=== PATIENT | male | born 1965 | race Caucasian/White ===

== ENCOUNTER → 2017-02-15 09:14 | Outpatient (CLI) | payer OTHER | END | disposition home or self-care (01) | LOC: D.MRI 02-11 10:00 | DX: M54.6 Pain in thoracic spine (principal) ==

== ENCOUNTER → 2017-05-03 21:12 | Outpatient (CLI) | payer OTHER | END | disposition home or self-care (01) | LOC: D.LABREF 21:12 | DX: C44.91 Basal cell carcinoma of skin, unspecified (principal) ==

== ENCOUNTER → 2017-05-13 08:12 | Outpatient (CLI) | payer OTHER | END | disposition home or self-care (01) | LOC: D.RAD 08:12 | DX: K21.0 Gastro-esophageal reflux disease with esophagitis (principal) ==

== ENCOUNTER 2017-05-16 15:22 | Inpatient (IN) | payer OTHER ==
[~2017-05-16] VITALS: Ht 185.4 cm; Wt 94.3 kg
[2017-05-16 16:16] LABS: BASOPHILS 0.2 % (0-2); EOSINOPHILS 2.8 % (0-7); HEMATOCRIT 33.2 % (42.0-54.0); HEMOGLOBIN 10.3 g/dL (13.5-17.5); IMMATURE GRANULOCYTES 0.2 % (0-5); LYMPHOCYTES 28.2 % (15-50); MCH 23.4 pg (26.0-34.0); MCV 75.3 fL (80.0-100.0); MEAN PLATELET VOLUME 9.6 fL (7.4-10.4); MONOCYTES 6.4 % (2-11); NEUTROPHILS 62.2 % (40-80); PLATELET COUNT 311 10x3/uL (130-400); RBC 4.41 10x6/uL (4.20-6.10); RDW 17.1 % (11.5-14.5); WBC 9.5 10x3/uL (4.8-10.8)
--- NOTE | 2017-05-16 16:18 | NUR ---
NO CONSENTS OBTAINED TO TO EMERGENT NATURE OF PROCEDURE.
[2017-05-16 16:35] LABS: ALBUMIN 2.9 g/dL (3.4-5.0); ANION GAP 14.2 mmol/L (8-16); BILIRUBIN - TOTAL 0.32 mg/dL (0.2-1.3); CARBON DIOXIDE 22.8 mmol/L (21.0-32.0); CREATININE - SERUM 1.3 mg/dL (0.6-1.3); PROTEIN - SERUM 6.8 g/dL (6.4-8.2)
--- NOTE | 2017-05-16 17:38 | NUR ---
PT ARRIVED INTO PACU RESTLESS. I EXPLAINED TO THE PT THAT HE HAD SOME BLEEDING WHEN GETTING AN EGD AT THE CLINIC AND THAT HE HAD TO BE BROUGHT TO THE HOSPITAL TO GET THE BLEEDING TO STOP. PT STARTED SIVERING EVEN MORE THATN WHEN HE ARRIVED. I ASKED THE PT IF HE WAS SCARED AND ANXIOUS. THE PT SHOCK HIS HEAD YES AND HAD TEARS COMING FROM HIS EYES. PT IS IN STABLE CONDITION AT THIS TIME. CALLED HIS BETITO TO COME INTO RECOVER TO HELP WITH PT ANXIETY. NO OTHER PT ARE IN HER AT THIS TIME. PT SEEMED TO RELAX ONCE HIS GOT TO HIS SIDE. WILL CONTINUE TO REMIND PT WHAT HAS OCCURED
--- NOTE | 2017-05-16 18:22 | NUR ---
PT APPEARS TO NOT BE ANXIOUS AT THIS TIME. PT EYES ARE CLOSED. HIS BRETHING HAS LOWERED FROM 24RR TO 16RR. WHEN ASKED IF HE FEELS LESS ANXIOUS, PT VOICED"YES". WILL CONITNUE TO MONITOR
--- NOTE | 2017-05-16 18:35 | NUR ---
PT ARRIVED TO UNIT ALERT AND ORIENTED RESPIRATIONS EVEN AND UNLABORED, FAMILY AWARE AND AT BEDSIDE, VSS, ART LINE IN PLACE TO RIGHT WRIST, NO NEEDS NOTED, WILL CONTINUE TO MONITOR
[2017-05-16 19:00] VITALS: BP 138/75
--- NOTE | 2017-05-16 19:00 | NUR ---
REPORT RECEIVED BY GABRIELLE. ADMISSION ASSESSMENT INITIATED. SISTER KATY GRACE, NIECE HOMA HODGE AND BETITO TOWNSEND AT BEDSIDE. ALERT AND ORIENTED TO PERSON, TIME, PLACE, AND SITUATION. PERRLA. MUCOUS MEMBRANES MOIST. S1S2 PRESENT. TELEMETRY MONITORING RATE OF 78. ART B/P 138/75. MAP 93. RR 16. PULSE OXIMETRY 97% VIA ROOM AIR. LUNGS SOUNDS CLEAR ALL LOBES. BS ACTIVE X4. LAST BOWEL MOVEMENT 05/16/17. PADRON CATHETER IN PLACE DRAINING YELLOW [place] URINE. RADIAL AND POPLITEAL PULSES PALP. CAPILLARY REFILL UPPER AND LOWER EXTREMITES. <3 SECS. FULL ROM UPPER AND LOWER EXTREMITES. R HAND PIV SALINE LOCK, PATENT, DRESSING DRY AND INTACT. ART LINE R WRIST. L WRIST PIV, INITIATED NS AT 125 MLS/HR PER ORDERS. SEE FLOW SHEET FOR COMPLETE ASSESSMENT. WILL CONTINUE TO MONITOR.
[2017-05-16 19:08] LABS: HEMATOCRIT 33.4 % (42.0-54.0); HEMOGLOBIN 10.3 g/dL (13.5-17.5)
[2017-05-16 20:00] VITALS: BP 129/75
[2017-05-16 20:05] VITALS: BP 139/66; BMI 27.5
--- NOTE | 2017-05-16 20:05 | NUR ---
DR. BASS AT BEDSIDE, STATED PT CAN HAVE ICE CHIPS ONLY, SWALLOW EVAL WILL BE DONE TOMORROW. BETITO AT BEDSIDE. VSS. CALL LIGHT WITHIN REACH. WILL CONTINUE TO MONITOR.
--- NOTE | 2017-05-16 20:40 | NUR ---
LAYING IN BED. C/O PAIN ON THROAT. ICE CHIPS PROVIDED PER REQUEST. CALLED PHARMACY FOR CHLORASEPTIC SPRAY. TEACHING PROVIDED ON PAIN AND AVAILABLE CHLORASEPTIC SPRAY PRN. DENIES FURTHER NEEDS AT THIS TIME. CALL LIGHT WITHIN REACH. WILL CONTINUE TO MONITOR.
[2017-05-16 21:00] VITALS: BP 163/85
[2017-05-16 22:00] VITALS: BP 142/76
--- NOTE | 2017-05-16 22:31 | NUR ---
CHLORASEPTIC SPRAY PROVIDED PER REQUEST. DENIES FURTHER NEEDS AT THIS TIME. VSS. CALL LIGHT WITHIN REACH. WILL CONTINUE TO MONITOR.
[2017-05-16 23:00] VITALS: BP 132/64
--- NOTE | 2017-05-16 23:00 | NUR ---
REASSESSMENT COMPLETE PER FLOW SHEET. SEE FLOW SHEET FOR DETAILS. VSS. DENIES NEEDS AT THIS TIME. BED IN LOWEST POSITION. WILL CONTINUE TO MONITOR.
[2017-05-17] VITALS (16 sets, daily range): BP systolic 121–143; BP diastolic 68–84; Ht 185.4 cm; Wt 94.3 kg
--- NOTE | 2017-05-17 01:00 | NUR ---
LAYING IN BED SLEEPING. VSS. CALL LIGHT WITHIN REACH. WILL CONTINUE TO MONITOR.
--- NOTE | 2017-05-17 02:25 | NUR ---
ATIVAN ADMINISTERED FOR ANXIETY. VSS. DENIES FURTHER NEEDS AT THIS TIME. CALL LIGHT WITHIN REACH. WILL CONTINUE TO MONITOR.
--- NOTE | 2017-05-17 03:00 | NUR ---
REASSSESSMENT COMPLETE PER FLOWSHEET. NO CHANGES NOTED. VSS. WILL CONTINUE TO MONITOR. CALL LIGHT WITHIN REACH. BED IN LOWEST POSITION.
[2017-05-17 04:16] LABS: BASOPHILS 0.2 % (0-2); EOSINOPHILS 1.4 % (0-7); HEMATOCRIT 32.9 % (42.0-54.0); HEMOGLOBIN 10.1 g/dL (13.5-17.5); IMMATURE GRANULOCYTES 0.3 % (0-5); LYMPHOCYTES 15.1 % (15-50); MCH 23.3 pg (26.0-34.0); MCHC 30.7 g/dL (31.0-37.0); MCV 75.8 fL (80.0-100.0); MEAN PLATELET VOLUME 9.7 fL (7.4-10.4); MONOCYTES 5.5 % (2-11); NEUTROPHILS 77.5 % (40-80); PLATELET COUNT 300 10x3/uL (130-400); RBC 4.34 10x6/uL (4.20-6.10); RDW 17.2 % (11.5-14.5)
[2017-05-17 04:20] LABS: WBC 13.2 10x3/uL (4.8-10.8)
[2017-05-17 04:28] LABS: ALBUMIN 2.9 g/dL (3.4-5.0); ALKALINE PHOSPHATASE 81 U/L (46-116); ALT (SGPT) 26 U/L (10-68); CALC OSMOLALITY 276 mosm/kg (275-300); CALCIUM 8.3 mg/dL (8.5-10.1); CARBON DIOXIDE 23.1 mmol/L (21.0-32.0); CHLORIDE - SERUM 105 mmol/L (98-107); GLUCOSE 95 mg/dL (74-106); MAGNESIUM - SERUM 1.9 mg/dL (1.8-2.4); PHOSPHOROUS 3.2 mg/dL (2.5-4.9); POTASSIUM - SERUM 3.9 mmol/L (3.5-5.1); PROTEIN - SERUM 6.8 g/dL (6.4-8.2); SODIUM 139 mmol/L (136-145); UREA NITROGEN 9 mg/dL (7-18); eGFR NON AFRICAN AMERICAN 84 mL/min (90-120)
--- NOTE | 2017-05-17 05:00 | NUR ---
LAYING IN BED SLEEPING. VSS. CALL LIGHT WITHIN REACH. BED IN LOWEST POSITION. WILL CONTINUE TO MONITOR.
--- NOTE | 2017-05-17 06:00 | NUR ---
BETITO AND NIECE IN ROOM. REPORT GIVEN ON STATUS OF PT THROUGHOUT THE NIGHT. VSS. DENIES FURTHER NEEDS AT THIS TIME. CALL LIGHT WITHIN REACH. BED IN LOWEST POSITION.
--- NOTE | 2017-05-17 07:00 | NUR ---
PT LYING IN BED WITH NO S/SX OF DISTRESS/DISCOMFORT NOTED. BREATHING NORMAL AND UNLABORED. FAMILY MEMBER AT BED SIDE. DURING ASSESSMENT, OCCASIONLLY COUGH WITH NO SPEUTUM OR BLOOD NOTED. C/O THROUGHT PAIN 2 OUT OF 10 ON 0-10. OFFERED MEDICATION AND PT REFUSED STATED IT WAS TOLERABLE. IV TO LEFT WRIST PATENT WITH NS INFUSING AT 125. RIGHT PIV PATENT AND SL. ART LINE TO RIGHT WRIST WITH SPINT IN PLACE. DRESSING C/D/I. RIGHT WRIST PINK, WARM AND CAP REFILL <3 SECS. ALL PULSES PALPABLE AND CAP REFILL <3 SEC. CALL LIGHT IN REACH. ICE CHIPS OFFERED. WILL CONT POC.
--- NOTE | 2017-05-17 07:50 | NUR ---
CALLED. ORDERED CXR FOR POST OP SURGERY.
--- NOTE | 2017-05-17 08:15 | NUR ---
POLITICAL THEORY PROFESSOR AT BED SIDE.
--- NOTE | 2017-05-17 08:30 | NUR ---
TECH TOOK PT VIA BED W/C TO DO SWALLOW EVAL.
--- NOTE | 2017-05-17 09:10 | NUR ---
PT BACK IN BED WITH 0 S/SX OF DISTRESS/DISCOMFORT NOTED. BREATHING NORMAL AND UNLABORED. OCCASIONALLY COUGH WITH NO BLOOD. DENIES PAIN AT THIS TIME. WILL CONT POC.
--- NOTE | 2017-05-17 10:53 | NUR ---
O2 SAT 87% DENIES SOB. BREATHING NORMAL AND UNLABORED. CLEAR LUNG SOUNDS. O2 AT 2L VIA NC. O2 SAT 93% WILL CONT POC.
--- NOTE | 2017-05-17 12:00 | NUR ---
FAMILY AT BED SIDE. STATED THAT HE WAS HUNGRY. PAGED ABOUT DIET ADVANCMENT. WAITING PHONE CALL. DENIES SOB. O2 SAT 98% REMAINS ON O2 AT 2L VIA NC. DENIES PAIN. NO ACUTE CHANGES FROM PREVIOUS ASSESSMENT. WILL CONT POC.
--- NOTE | 2017-05-17 12:09 | NUR ---
MD CHANDRA FOR PT TO HAVE CLEAR LIQUID DIET. DIETARY NOTFIED AND TRAY GIVEN TO PT.
[2017-05-17 12:54] LABS: HEMATOCRIT 36.9 % (42.0-54.0); HEMOGLOBIN 11.4 g/dL (13.5-17.5)
--- NOTE | 2017-05-17 13:11 | NUR ---
BED SIDE COMMODE BROUGHT TO PT. FAMILY AT BED SIDE. STATED "I WILL CALL YOU TO HELP ME WHENEVER SHE LEAVES"
--- NOTE | 2017-05-17 14:28 | NUR ---
O2 REMOVED AND STILL DENIES SOB. BREATHING NORMAL AND UNLABORED. LUNGS CLEAR TO ASCULTATION. O2 98% RA.
--- NOTE | 2017-05-17 14:45 | NUR ---
PT REQUESTED TO USE RESTROOM. UP X1 ASSISTANCE. DIARRHEA NOTED IN ROLDAN.
--- NOTE | 2017-05-17 16:24 | NUR ---
MD STANTON. GAVE OK TO REMOVE SANDRA AND FC. BOTH REMOVED. PRESSURE HELD AND DRESSING OVER RIGHT WRIST. NO BLEEDING NOTED. DRESSING C/D/I. NO VOIDING AT THIS TIME.
--- NOTE | 2017-05-17 16:30 | NUR ---
GAVE NEW ORDRES TO TRANSFER FROM ICU TO MED SURG. AWAITING OPEN ROOM.
--- NOTE | 2017-05-17 17:15 | NUR ---
REPORT CALLED INTO [facility] FROM MED SUR[facility]. ALL PERSONAL BELONING ACCOUNTED FOR. PT TRANSFERED TO MED SURG AND PT STATED HE HAD TO VOID. NORMAL VOID WITH YELLOW CLEAR URINE IN TOILET. NURSE TAKING OVER PT NOTIFIED.
--- NOTE | 2017-05-17 17:24 | NUR ---
PATIENT RECEIVED TO FLOOR FROM ICU VIA WHEELCHAIR. NO SIGNS OF DISTRESS NOTED. FAMILY PRESENT. ORIENTED TO ROOM .CALL LIGHT IN REACH.
[2017-05-17 17:29] LABS: HEMATOCRIT 34.5 % (42.0-54.0); HEMOGLOBIN 10.5 g/dL (13.5-17.5)
[2017-05-17 18:17] LABS: ALBUMIN 3.1 g/dL (3.4-5.0); ANION GAP 13.2 mmol/L (8-16); BILIRUBIN - TOTAL 0.35 mg/dL (0.2-1.3); CALCIUM 8.7 mg/dL (8.5-10.1); CARBON DIOXIDE 25.5 mmol/L (21.0-32.0); POTASSIUM - SERUM 3.7 mmol/L (3.5-5.1); PROTEIN - SERUM 7.5 g/dL (6.4-8.2)
[2017-05-17 18:20] LABS: CREATININE - SERUM 1.3 mg/dL (0.6-1.3)
[2017-05-18] VITALS: BP 113/63
[2017-05-18 04:00] VITALS: BP 111/57
[2017-05-18 04:55] LABS: BASOPHILS 0.2 % (0-2); EOSINOPHILS 2.4 % (0-7); HEMATOCRIT 33.1 % (42.0-54.0); IMMATURE GRANULOCYTES 0.3 % (0-5); LYMPHOCYTES 18.2 % (15-50); MCH 23.1 pg (26.0-34.0); MCHC 30.2 g/dL (31.0-37.0); MCV 76.4 fL (80.0-100.0); MEAN PLATELET VOLUME 9.6 fL (7.4-10.4); MONOCYTES 7.3 % (2-11); NEUTROPHILS 71.6 % (40-80); PLATELET COUNT 308 10x3/uL (130-400); RBC 4.33 10x6/uL (4.20-6.10); RDW 17.3 % (11.5-14.5); WBC 9.9 10x3/uL (4.8-10.8)
--- NOTE | 2017-05-18 06:13 | NUR ---
PATIENT RESTING IN BED AND DENIES NEEDS AT THIS TIME. BED IN LOWEST POSITION AND CALL LIGHT WITHIN REACH. ENCOURAGED THE PATIENT TO CALL IF HE HAS NEEDS.
[2017-05-18 08:05] VITALS: BP 115/75
--- NOTE | 2017-05-18 10:08 | NUR ---
PT AOX4 RESP EVEN AND NONLABORED PT DENIES NEEDS AT THIS TIME IV TO RIGHT HAND PATENT AND INTACT AT THIS TIME SRX2 BED AT LOWEST SETTING CALL LIGHT WITHIN REACH WILL CONTINUE TO MONITOR
[2017-05-18 12:12] VITALS: BP 112/75
[2017-05-18 16:07] VITALS: BP 109/70
[2017-05-18 20:00] VITALS: BP 112/50
[2017-05-19] VITALS: BP 129/73
--- NOTE | 2017-05-19 02:57 | NUR ---
ASSESSED, PT IS ASLEEP WITH EASY RESPIRATIONS AND NO DISTRESS NOTED. THE BED IS LOW, RAILS UP X'S 2 WITH THE CALL LIGHT AT HAND. FAMILY REMAINS AT THE BEDSIDE.
[2017-05-19 04:00] VITALS: BP 116/73
[2017-05-19 06:24] LABS: HEMATOCRIT 32.8 % (42.0-54.0); HEMOGLOBIN 9.9 g/dL (13.5-17.5)
[2017-05-19 08:39] VITALS: BP 132/70; BP 98/45
[2017-05-19] MEDS ORDERED: PROTONIX40 MG PO (14:59)
[2017-05-19] MEDS ORDERED: CARAFATE1 G/10 ML PO (14:59)
--- NOTE | 2017-05-19 15:37 | NUR ---
DISCONTINUED TWO IV WITH CATHETERS INTACT AT THIS TIME PT AMBULATED TO ENTRANCE WITH STAFF TO [facility] AT THIS TIME WITH DISCHARGE INSTRUCTIONS
== END 2017-05-19 15:38 | disposition home or self-care (01) | DRG 921 ==
LOC: D.ICU 15:22 → D.MS 05-17 17:24
PROVIDERS: Internal Medicine Gastroenterology; Internal Medicine Medical Oncology; Surgery; ADMIT Family Medicine
PROC: 0DB58ZX Excision of Esophagus, Via Natural or Artificial Opening Endoscopic, Diagnostic (ICD-10-PCS; 2017-05-16)
PROC: 3E0G8GC Introduction of Other Therapeutic Substance into Upper GI, Via Natural or Artificial Opening Endoscopic (ICD-10-PCS; 2017-05-16)
PROC: 5A1935Z Respiratory Ventilation, Less than 24 Consecutive Hours (ICD-10-PCS; 2017-05-16)
PROC: 0W3P8ZZ Control Bleeding in Gastrointestinal Tract, Via Natural or Artificial Opening Endoscopic (ICD-10-PCS; principal; 2017-05-16 15:00)
DX: K91.840 Postprocedural hemorrhage of a digestive system organ or structure following a digestive system procedure (principal); Y83.8 Other surgical procedures as the cause of abnormal reaction of the patient, or of later complication, without mention of misadventure at the time of the procedure; D50.9 Iron deficiency anemia, unspecified; K22.8 Other specified diseases of esophagus

== ENCOUNTER → 2017-05-21 09:42 | Outpatient (CLI) | payer OTHER ==
[2017-05-17 10:09] VITALS: BMI 27.4
[~2017-05-21 09:42] MED LIST: CARAFATE1 G/10 ML PO; PROTONIX40 MG PO
== END | disposition home or self-care (01) ==
LOC: D.LABREF 09:42
DX: C44.91 Basal cell carcinoma of skin, unspecified (principal)

== ENCOUNTER 2017-05-23 08:48 | Day surgery (SDC) | payer OTHER ==
[~2017-05-23] VITALS: Ht 185.4 cm; Wt 93.4 kg
[2017-05-23 10:41] VITALS: BP 117/77; Ht 185.4 cm; Wt 93.4 kg
[2017-05-23 10:58] LABS: BASOPHILS 0.5 % (0-2); EOSINOPHILS 3.5 % (0-7); HEMATOCRIT 35.6 % (42.0-54.0); HEMOGLOBIN 10.9 g/dL (13.5-17.5); IMMATURE GRANULOCYTES 0.2 % (0-5); LYMPHOCYTES 28.3 % (15-50); MCH 23.5 pg (26.0-34.0); MCHC 30.6 g/dL (31.0-37.0); MCV 76.7 fL (80.0-100.0); MEAN PLATELET VOLUME 9.9 fL (7.4-10.4); MONOCYTES 6.5 % (2-11); PLATELET COUNT 353 10x3/uL (130-400); RBC 4.64 10x6/uL (4.20-6.10); RDW 17.4 % (11.5-14.5); WBC 6.3 10x3/uL (4.8-10.8)
[2017-05-23 11:17] LABS: APTT 28.3 SECONDS (22.8-39.4); INR 0.92 (0.85-1.17); PROTIME 12.2 SECONDS (11.6-15.0)
--- NOTE | 2017-05-23 16:52 | NUR ---
1640 DISCHARGE INSTRUCTIONS GIVEN, INCLUDING POWER PORT INSTRUCTIONS AND NEEDLE. PRESCRIPTION FOR TYLENOL WITH CODEINE CALLED INTO PHARMACY DUE TO SWALLOWING DIFFICULTY. ESCORTED OUT.
== END 2017-05-23 16:40 | disposition home or self-care (01) ==
LOC: D.OPS 08:48 → D.PAN 11:00 → D.OPS 16:40
PROVIDERS: Anesthesiology
DX: C15.9 Malignant neoplasm of esophagus, unspecified (principal); Z01.812 Encounter for preprocedural laboratory examination

== ENCOUNTER → 2017-07-30 08:56 | Outpatient (CLI) | payer OTHER ==
[2017-05-23 10:41] VITALS: BMI 27.2
== END | disposition home or self-care (01) ==
LOC: D.CT 08:56
DX: C15.5 Malignant neoplasm of lower third of esophagus (principal); Z51.11 Encounter for antineoplastic chemotherapy; D50.9 Iron deficiency anemia, unspecified; D70.8 Other neutropenia

== ENCOUNTER 2017-08-19 07:23 | Inpatient (IN) | payer OTHER ==
[2017-08-16 14:19] LABS: BASOPHILS 0.2 % (0-2); EOSINOPHILS 5.1 % (0-7); HEMATOCRIT 42.1 % (42.0-54.0); HEMOGLOBIN 14.3 g/dL (13.5-17.5); IMMATURE GRANULOCYTES 0.3 % (0-5); MCH 32.5 pg (26.0-34.0); MCV 95.7 fL (80.0-100.0); MEAN PLATELET VOLUME 9.7 fL (7.4-10.4); MONOCYTES 13.3 % (2-11); NEUTROPHILS 66.1 % (40-80); PLATELET COUNT 163 10x3/uL (130-400); RDW 23.2 % (11.5-14.5); WBC 6.3 10x3/uL (4.8-10.8)
[2017-08-16 14:28] LABS: APTT 27.4 SECONDS (22.8-39.4); INR 0.89 (0.85-1.17); PROTIME 11.9 SECONDS (11.6-15.0)
[2017-08-16 14:31] LABS: ANION GAP 11.2 mmol/L (8-16); CARBON DIOXIDE 26.7 mmol/L (21.0-32.0); CREATININE - SERUM 1.2 mg/dL (0.6-1.3); POTASSIUM - SERUM 3.9 mmol/L (3.5-5.1)
[2017-08-19] VITALS (19 sets, daily range): BP systolic 108–141; BP diastolic 58–87; BMI 27.7; BMI 31.1
[~2017-08-19] VITALS: Ht 185.4 cm; Wt 70.5 kg
--- NOTE | ~2017-08-19 | HEMODYNAMI ---
PATIENT:ARTHUR TOWNSEND MEDICAL RECORD: [id number] : 67 LOCATION:[facility] D230 ADMISSION DATE: 08/19/17 Generatedon:10/25/201714:41 Patient name: ARTHUR TOWNSEND Patient #: [id number] SSN: : 1965 Date of study: 10/25/2017 Page: Of Hemodynamic Procedure Report Patient Data Patient Demographics Procedure consent was obtained First Name: ARTHUR Gender: Male Last Name: KRISTIAN : 1965 [facility] Initial: ARPAN Age: 52 year(s) Patient #: [id number] Race: Unknown Additional ID: [id number] Contact details Address: [address] [place] [address] State: [place] City: [facility] [place] Zip code: [address] Past Medical History Allergies Allergen Reaction Date Comments Reported Penicillins 10/25/2017 Admission Admission Data Admission Date: 08/19/2017 Admission Time: 7:23 Room #: D2305 Weight (lbs.): 160 Weight (kg.): 72.57 Procedure Procedure Types Cath Procedure Peripheral Cath Diagnostic Procedure Cath Peripheral Abscess Procedure Description Procedure Date Procedure Date: 10/25/2017 Procedure Start Time: 13:34 Procedure Staff Name Function Gilson Khan MD Performing Physician Gris Carson RT Monitor Quan Leyva RT Scrub Tammy Khalil RN Nurse Gris Carson RT Master Automotive Technician Procedure Data Cath Procedure Fluoroscopy Diagnostic fluoroscopy Total fluoroscopy Time: 18 time: 18 min min Diagnostic fluoroscopy Total fluoroscopy dose: 305 dose: 305 mGy mGy Contrast Material Contrast Material Type Amount (ml) Isovue 300 65 Procedure Medications Medication Administration Route Dosage Fentanyl I.V. 50 mcg Versed I.V. 1 mg Fentanyl I.V. 50 mcg Versed I.V. 1 mg Hemodynamics Rest Heart Rate: 152 (bpm) Snapshots Pre Cath Intra NCS Post Cath Vital Signs Time Heart Resp SPO2 etCO2 NIBP (mmHg) Rhythm Pain Sedation Rate (ipm) (%) (mmHg) Status Level (bpm) 13:13:48 131 36 98 0 98/65(83) NSR 0 (11) 10(A) , No pain 13:17:42 126 35 100 0 118/90(111) NSR 0 (11) 10(A) , No pain 13:21:43 122 35 98 0 111/81(89) NSR 0 (11) 10(A) , No pain 13:25:45 122 31 98 0 128/75(91) NSR 0 (11) 10(A) , No pain 13:29:55 121 31 99 0 119/66(83) NSR 0 (11) 10(A) , No pain 13:33:53 120 32 99 0 116/77(92) NSR 0 (11) 10(A) , No pain 13:37:56 110 32 97 0 127/79(108) NSR 0 () 10(A) , No pain 13:42:04 124 39 96 0 112/70(88) NSR 0 () 10(A) , No pain 13:47:03 120 31 96 0 Measuring NSR 0 () 10(A) , No pain 13:47:34 122 31 95 0 110/68(86) NSR 0 () 10(A) , No pain 13:51:38 124 32 97 0 117/71(95) NSR 0 () 10(A) , No pain 13:55:41 117 32 95 0 122/78(97) NSR 0 () 10(A) , No pain 14:00:32 120 27 94 0 111/68(98) NSR 0 () 10(A) , No pain 14:04:36 120 27 88 0 83/70(80) NSR 0 (11) 10(A) , No pain 14:08:38 123 31 98 0 64/50(55) NSR 0 (11) 10(A) , No pain 14:13:04 123 35 94 0 Out of range NSR 0 (11) 10(A) , No pain 14:16:00 125 36 90 0 133/65(100) NSR 0 (11) 10(A) , No pain 14:20:02 123 38 99 0 115/83(96) NSR 0 (11) 10(A) , No pain 14:24:55 127 17 100 0 98/62(77) NSR 0 (11) 10(A) , No pain 14:29:37 123 40 99 0 120/106(117) NSR 0 (11) 10(A) , No pain 14:34:18 123 36 98 0 139/65(82) NSR 0 (11) 10(A) , No pain 14:38:28 127 39 99 0 109/61(75) NSR 0 (11) 10(A) , No pain Medications Time Medication Route Dose Verified Delivered Reason Notes Effectivene ss by by 13:37:37 Fentanyl I.V. 50 Gilson Tammy for mcg Khan Remi RN sedation 13:37:50 Versed I.V. 1 mg Gilson Tammy for Khan Remi RN sedation 13:57:31 Fentanyl I.V. 50 Gilson Tammy for mcg Khan Remi RN sedation 13:57:37 Versed I.V. 1 mg Gilson Tammy for Khan Remi RN sedation Procedure Log Time Note 12:59:25 Patient Weight : 160 lbs 12:59:58 Time tracking: Regular hours 13:02:06 Plan of Care:Hemodynamics will remain stable., Cardiac rhythm will remain stable., Comfort level will be maintained., Respiratory function will remain adequate., Patient/ family verbilizes understanding of procedure., Procedure tolerated without complication., Recovers from procedure without complications.. 13:02:13 Patient received from ICU to IR Alert and oriented. Tansferred to table in Supine position. 13:02:15 Correct patient and procedure confirmed by team. 13:02:17 Signed procedure consent form obtained from guardian. 13:02:27 H&P Date Dictated: 10/25/2017 Within 30 days and on chart.. 13:02:32 Family unavailable. 13:02:38 Patient NPO since Breakfast. 13:02:53 Patient allergic to Penicillins 13:02:58 Is the patient allergic to Iodine/contrast media? No. 13:03:04 Is patient on blood thinner?No 13:05:08 Patient diabetic? No. 13:05:10 - 13:05:13 ----Pre-sedation anethsthesia assessment.---- 13:05:16 Previous problem with sedation/anesthesia? No ? 13:05:19 Snore? No 13:05:22 Sleep apnea? No 13:05:32 Deviated septum? No 13:05:34 Opens mouth fully? Yes 13:05:37 Sticks out tongue? Yes 13:05:41 Airway obstruction? No ? 13:05:44 Dentures? No ? 13:05:46 - 13:06:29 Right abdomen area was prepped with chlora-prep and draped in sterile fashion 13:06:31 Alarms reviewed 13:06:40 Sharps counted by scrub and verified 13:06:51 - 13:06:59 Use device set IR Diagnostic 13:07:00 Sterile Angiographic Pack opened to sterile field. 13:07:01 Bag Decanter (2002S) opened to sterile field. 13:12:37 ECG and BP/O2 sat monitors applied to patient. 13:12:41 Vital chart was started 13:12:42 Baseline sample Acquired. 13:12:44 Baseline sample Acquired. 13:12:44 Baseline sample Acquired. 13:12:46 Full Disclosure recording started 13:33:01 Physician arrived 13:34:18 --------ALL STOP TIME OUT------ 13:34:18 Final Timeout: patient, procedure, and site verified with staff and physician. All members of the team are in agreement. 13:34:28 Sedation plan: IV Moderate Sedation Medication:Versed, Fentanyl 13:34:35 Procedure started. 13:34:57 Local anesthetic to Abdominal area with Lidocaine 1% by Gilson Khan MD.INITIAL ACCESS ONLY 13:37:37 Fentanyl 50 mcg I.V. was administered by Tammy Khalil RN; for sedation ; 13:37:50 Versed 1 mg I.V. was administered by Tammy Khalil RN; for sedation; 13:43:[address] .035 145 glide wire opened to sterile field. 13:43:35 Cook Adolfo 1 7Fr Guide sheath opened to sterile field. 13:46:57 Terumo 5FR COBRA 65CM glide catheter opened to sterile field. 13:57:31 Fentanyl 50 mcg I.V. was administered by Tammy Khalil RN; for sedation ; 13:57:37 Versed 1 mg I.V. was administered by Tammy Khalil RN; for sedation; 14:04:01 Hatch Sci AMPLATZ Super stiff 180cm wire opened to sterile field. 14:06:42 Abscession 14Fr 45cm drainage catheter ([id number]) opened to sterile field. 14:06:43 Abscession 12Fr 45cm drainage catheter ([id number]) opened to sterile field. 14:09:44 Terumo 5FR STRAIGHT 65CM glide catheter opened to sterile field. 14:14:54 STOPCOCK 3-Way Large Bore ([id number]) opened to sterile field. 14:14:55 STOPCOCK 3-Way Large Bore ([id number]) opened to sterile field. 14:15:01 Hatch Sci AMPLATZ Super stiff 180cm wire opened to sterile field. 14:20:34 BAG, DRAINAGE EMPTY 600ML W/HARI ([id number]) opened to sterile field. 14:20:35 BAG, DRAINAGE EMPTY 600ML W/HARI (JEI284) opened to sterile field. 14:30:42 Procedure ended.(Physican Out) 14:30:57 Fluoroscopy time 18.00 minutes. 14:31:37 Fluoroscopy dose: 305 mGy 14:31:37 Flurop Dose total: 305 14:31:54 Contrast amount:Isovue 300 65ml. 14:36:39 Procedure type changed to Cath procedure, Peripheral Cath Diagnostic Procedure, Cath Peripheral, Abscess 14:37:28 Report given to ICU. 14:41:01 Vital chart was stopped Device Usage Item Name Manufacture Quantity Catalog Hospital Part Current Minima l Lot# / Number Charge Number Stock Stock Serial# Code Sterile Cardinal 1 [id number] [id number] 5 Angiographic Health Pack Bag Decanter Microtek 1 [id number] 58581 679595 5 () Medical Inc. Ep[employer] Medical 1 [id number] 269063 983357 5 [id number]ADRUNNER .035 145 glide wire Cook Adolfo 1 [employer] 1 D82644 999646 710369 5 7Fr Guide sheath Terumo 5FR Terumo 1 CG502 270610 707048 5 COBRA 65CM glide catheter Hatch Sci Hatch 1 [id number] 375916 981529 5 AMPLATZ Scientific Super stiff 180cm wire Abscession Angiodynamics 1 [id number] 090857 186858 278707 5 14Fr 45cm drainage catheter ([id number]) Abscession Angiodynamics 1 [id number] 970209 163070 218297 5 12Fr 45cm drainage catheter ([id number]) Terumo 5FR Terumo 1 CG505 978059 746777 5 STRAIGHT 65CM glide catheter STOPCO [employer] 2 B79355 163410 1644 778676 [id number] 3-Way Large [id number] Bore ([id number]) BAG, [facility] 2 JMV958 092454 504245 298233 5 DRAINAGE EMPTY 600ML W/HARI ([id number]) Signature Audit Kula Stage Time Signature Unsigned Intra-Procedure 10/25/2017 Gris Carson 2:40:58 PM RT(R) Signatures Monitor : Gris Carson RT Signature : Date : Time : [facility] [address] [place] [address]
--- NOTE | ~2017-08-19 | OP ---
PATIENT NAME: ARTHUR TOWNSEND MEDICAL RECORD: [id number] :67 LOCATION:.[facility] D.2305 ADMISSION DATE:08/19/17 SURGEON: BELIA LU MD DATE OF OPERATION: 09/07/2017 PREOPERATIVE DIAGNOSES: 1. Acute renal failure. 2. Esophageal cancer, status post esophagectomy. 3. 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 4. Sepsis. 5. Respiratory failure, on the ventilator. POSTOPERATIVE DIAGNOSES: 1. Acute renal failure. 2. Esophageal cancer, status post esophagectomy. 3. 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 4. Sepsis. 5. Respiratory failure, on the ventilator. PROCEDURE: Right IJ Trialysis catheter placement with ultrasound guidance. SURGEON: Belia Lu MD REPORT OF PROCEDURE: The patient's right neck was prepped and draped in sterile fashion. An ultrasound was used to visualize the right internal jugular vein. A 5 cc of 1% lidocaine was infused over the surrounding tissues. Using ultrasound guidance, a needle was used to cannulate the right internal jugular vein and a guidewire was advanced with ease. Over this wire, the dilator was placed followed by the Trialysis catheter. This catheter aspirated nonpulsatile dark blood and flushed easily in all 3 ports. This was sutured into place with 4-0 nylons and dressed appropriately. COMPLICATIONS: None. CONDITION: Fair. ANESTHESIA: Local. BLOOD LOSS: Minimal. Procedure done at the bedside. TRANSINT:[id number] Voice Confirmation ID: [id number] DOCUMENT ID: [id number] BELIA LU MD at 1114 CC: [id number] DICTATION DATE: 09/07/17 1311 BRIDGE OPERATOR: 09/07/17 1343 ADM IN [facility] [address] [place] [address]
--- NOTE | ~2017-08-19 | EC ---
PATIENT:ARTHUR TOWNSEND DATE OF SERVICE: 08/19/17 SEX: M MEDICAL RECORD: [id number] DATE OF : 67 LOCATION:[facility] D230 AGE OF PATIENT: 52 ADMISSION DATE: 08/19/17 REFERRING PHYSICIAN: INTERPRETING PHYSICIAN: GABBIE SY MD ECHOCARDIOGRAM REPORT ECHO CHARGES 4 ECHO COMPLETE CLINICAL DIAGNOSIS: TACHYCARDIA/RESP.FAILURE ECHOCARDIOGRAPHIC MEASUREMENTS (adult normal given) AC root (d.<3.7cm) 3.4 cm LV Septum d (<1.2 cm> 1.4 cm Valve Excursion 2.1 cm LV Septum (systole) 2.2 cm Left Atria (s.<4.0cm> 3.0 cm LVPW d(<1.2cm) 1.2 cm RV (d.<2.3cm) 2.2 cm LVPW (sytole) 1.7 cm LV diastole(<5.6CM) 5.2 cm MV E-F(>70mm/sec) cm LV systole 3.4 cm LVOT Diameter 1.9 cm MV exc.(>10mm) cm Est.ejection fraction (50-75%) % Pericardial Effusion N DOPPLER: LVIT cm/sec A 78.0 cm/sec E 68.0 cm/sec LA cm/sec RVSP 19.0 mmHg LVOT 111 cm/sec AOP1/2T m/s Asc. Ao 127 cm/sec RVOT 86.0 cm/sec RA cm/sec PA 114 cm/sec AV Gradient Peak 6.4 mmHg AV Mean 3.0 mmHg AV Area 2.5 cm MV Gradient Peak 2.9 mmHg MV Mean 1.3 mmHg MV Area cm COMMENTS: Biomedical Specialist: Milind ADAN Ethylbenzene Oxidizer: 4 Dr. Sy TAPE# PACS DATE OF SERVICE: 08/23/2017 PROCEDURE: Transthoracic echocardiogram. FINDINGS: 1. The left ventricle is difficult to visualize, but appears to be hyperkinetic with ejection fraction above 60%. Again, this is more qualitative in nature. The patient is significantly tachycardic, but appears to be in a sinus tachycardia. 2. The right ventricle appears to be normal size, normal function. There are ECHOCARDIOGRAM REPORT [id number] ARTHUR TOWNSEND no gross valvular abnormalities that could be seen on today's study, but again the left ventricle appears to be hyperkinetic with normal function to hyperdynamic function. There is no pericardial effusion. CONCLUSION: The patient's heart is difficult to visualize, but it appears there is a hypercontractile state. There is a sinus tachycardia with no gross valvular abnormalities or wall motion abnormality seen on today's study. TRANSINT:[id number] Voice Confirmation ID: [id number] DOCUMENT ID: [id number] 08/30/2017 Edited to correct date of service, dm. GABBIE SY MD at 0915 CC: [id number] DICTATION DATE: 08/26/17 0940 CUSTOMER SERVICE AND SALES CONSULTANT: 08/26/17 [address] [facility] [address] [place] [address]
--- NOTE | ~2017-08-19 | PRO ---
PATIENT:ARTHUR TOWNSEND MEDICAL RECORD: [id number] : 67 LOCATION:D[facility] D.2301 ADMISSION DATE: 08/19/17 PROCEDURE PERFORMED BY: BARTOLO PIKE MD DATE OF PROCEDURE: 08/25/2017 PROCEDURE: Fiberoptic bronchoscopy. INDICATION: Fiberoptic bronchoscopy was carried out to inspect the airway if there is any mucous plugging. The chest radiograph shows bilateral infiltrate, left more than the right. Some atelectasis in the left lower lobe. DESCRIPTION OF PROCEDURE: Fiberoptic bronchoscope was easily passed through the ET tube. The steven was sharp. There was thick yellowish secretion bilaterally, more on the left main bronchus. There was severe bronchitic change, it bled easily by touching the bronchoscope. No endobronchial lesion was seen. The right main bronchus was normal. The subsegment to the right lower lobe, right upper lobe, right middle within normal range. No endobronchial lesion was seen. There was thick yellowish secretion on the right side. Overall, the patient tolerated the procedure very well. Specimen washing was obtained and sent for routine culture and sensitivity, AFB and fungus and cytology. TRANSINT:[id number] Voice Confirmation ID: [id number] DOCUMENT ID: [id number] BARTOLO PIKE MD at 1035 CC: [id number] DICTATION DATE: 08/25/17 1220 BARREL LEVELER: 08/25/17 1407 ADM IN [facility] [address] [place] [address]
--- NOTE | ~2017-08-19 | HEMODYNAMI ---
PATIENT:ARTHUR TOWNSEND MEDICAL RECORD: [id number] : 67 LOCATION:[facility] D.2305 ADMISSION DATE: 08/19/17 Generatedon:09/20/20179:40 Patient name: ARTHUR TOWNSEND Patient #: [id number] SSN: : 1965 Date of study: 09/20/2017 Page: Of Hemodynamic Procedure Report Patient Data Patient Demographics Procedure consent was obtained First Name: ARTHUR Gender: Male Last Name: KRISTIAN : 1965 [facility] Initial: ARPAN Age: 52 year(s) Patient #: [id number] Race: Unknown Additional ID: [id number] Contact details Address: [address] [place] [address] State: [place] City: [facility] Zip code: [address] Admission Admission Data Admission Date: 08/19/2017 Admission Time: 7:23 Room #: D.2305 Weight (lbs.): 236 Weight (kg.): 107.05 Procedure Procedure Types Cath Procedure Peripheral Cath Diagnostic Procedure Cath Peripheral Gastric G J Tube Replacement Procedure Description Procedure Date Procedure Date: 09/20/2017 Procedure Start Time: 8:55 Procedure Staff Name Function Favian Farr MD Performing Physician Gris Carson RT Monitor Quan Leyva RT Scrub Tammy Khalil RN Nurse Gris Carson RT Instructor Product Inspection Procedure Data Cath Procedure Fluoroscopy Diagnostic fluoroscopy Total fluoroscopy Time: time: 11.2 min 11.2 min Diagnostic fluoroscopy Total fluoroscopy dose: 399 dose: 399 mGy mGy Contrast Material Contrast Material Type Amount (ml) Isovue 300 75 Diagnostic catheters Device Type Used For End Catheter Placement Merit Impress KA 2 5Fr 40CM catheter Hemodynamics Rest Heart Rate: 129 (bpm) Snapshots Pre Cath Intra NCS Post Cath Vital Signs Time Heart Resp SPO2 etCO2 NIBP (mmHg) Rhythm Pain Sedation Rate (ipm) (%) (mmHg) Status Level (bpm) 8:34:55 128 7 0 147/88(104) NSR 0 (11) 10(A) , No pain 8:39:04 127 17 0 130/78(104) NSR 0 (11) 10(A) , No pain 8:43:16 125 17 0 125/80(109) NSR 0 (11) 10(A) , No pain 8:47:31 129 19 0 132/79(98) NSR 0 (11) 10(A) , No pain 8:51:47 126 10 0 140/80(109) NSR 0 (11) 10(A) , No pain 8:56:02 124 10 100 0 127/79(105) NSR 0 (11) 10(A) , No pain 9:00:16 129 19 100 0 136/82(109) NSR 0 (11) 10(A) , No pain 9:04:28 131 21 100 0 139/81(97) NSR 0 (11) 10(A) , No pain 9:08:40 131 3 100 0 133/80(109) NSR 0 (11) 10(A) , No pain 9:12:52 125 13 100 0 122/79(106) NSR 0 (11) 10(A) , No pain 9:17:08 124 17 0 124/70(95) NSR 0 (11) 10(A) , No pain 9:22:07 127 6 0 Measuring NSR 0 (11) 10(A) , No pain 9:22:11 126 6 0 136/79(108) NSR 0 (11) 10(A) , No pain 9:26:32 129 34 0 137/78(97) NSR 0 (11) 10(A) , No pain 9:30:37 125 10 0 119/76(94) NSR 0 (11) 10(A) , No pain 9:34:45 128 16 0 123/81(95) NSR 0 (11) 10(A) , No pain 9:39:03 130 10 100 0 125/72(102) NSR 0 (11) 10(A) , No pain Procedure Log Time Note 8:08:10 Patient Weight : 236 lbs 8:08:44 Use device set IR Diagnostic 8:08:47 Sterile Angiographic Pack opened to sterile field. 8:08:48 Bag Decanter opened to sterile field. 8:22:57 Time tracking: Regular hours 8:23:23 Plan of Care:Hemodynamics will remain stable., Cardiac rhythm will remain stable., Comfort level will be maintained., Respiratory function will remain adequate., Patient/ family verbilizes understanding of procedure., Procedure tolerated without complication., Recovers from procedure without complications.. 8:23:55 Patient received from ICU to IR Alert and oriented. Tansferred to table in Supine position. 8:24:00 Signed procedure consent form obtained from guardian. 8:24:09 H&P Date Dictated: 09/20/2017 Within 30 days and on chart.. 8:24:12 8:24:18 Patient NPO since Midnight. 8:33:51 ECG and BP/O2 sat monitors applied to patient. 8:33:52 Vital chart was started 8:33:54 Baseline sample Acquired. 8:33:56 Full Disclosure recording started 8:33:57 8:34:42 Left abdomen area was prepped with chlora-prep and draped in sterile fashion 8:34:44 Alarms reviewed 8:34:45 Sharps counted by scrub and verified 8:34:47 8:50:59 Physician arrived 8:51:57 --------ALL STOP TIME OUT------ 8:51:57 Final Timeout: patient, procedure, and site verified with staff and physician. All members of the team are in agreement. 8:53:07 Sedation plan: Local Anesthetic Medication:Lidocaine 8:54:43 Procedure started. 8:55:07 Local anesthetic to Abdominal area with Lidocaine 1% by Favian Farr MD.INITIAL ACCESS ONLY 8:59:30 Terumo ANGLE 180L glide wire opened to sterile field. 8:59:39 Terumo TORQUE DEVICE PLASTIC .038 opened to sterile field. 9:00:32 Terumo Super Stiff Angled 260cm glide wire opened to sterile field. 9:04:52 Terumo 5FR ANGLED 65CM glide catheter opened to sterile field. 9:06:52 A Merit [place] Bells KA 2 5Fr 40CM catheter was advanced over the wire and used for . 9:08:55 Cordis 5Fr BRITE TIP 11cm sheath opened to sterile field. 9:10:00 Micropuncture VSI 4FR kit opened to sterile field. 9:29:37 LISSA JEJUNAL FEEDING TUBE 20FR. opened to sterile field. 9:36:28 a 20 fr jejunal feeding tube placed 9:36:35 Procedure ended.(Physican Out) 9:36:41 Fluoroscopy time 11.20 minutes. 9:36:46 Fluoroscopy dose: 399 mGy 9:36:46 Flurop Dose total: 399 9:36:51 Contrast amount:Isovue 300 75ml. 9:36:53 Sharps counted by scrub and verified by R.N. 9:39:27 Procedure and supply charges have been captured, reviewed, submitted and are correct. 9:39:45 Report given to ICU. 9:39:50 End room use (Document Last) 9:40:09 Vital chart was stopped Device Usage Item Name Manufacture Quantity Catalog Hospital Part Current Mini mal Lot# / Number Charge Number Stock Stock Serial# Code Sterile Cardinal 1 [id number] 5 Angiographic Health Pack Bag Decanter Microtek 1 [id number] 89076 151728 5 [employer]. Terumo ANGLE Terumo 1 [id number] [id number] 505083 [id number] 5 180L glide wire Terumo TORQUE [place] 1 TD01 937797 983131 312457 5 DEVICE Scientific PLASTIC .038 Terumo Super Terumo 1 [id number] 794879 587996 5 Stiff Angled 260cm glide wire Terumo 5FR Terumo 1 [id number] 876767 092667 5 ANGLED 65CM glide catheter Merit Impress Merit Medical 1 [id number] 178186 5 KA 2 5Fr 40CM catheter Cordis 5Fr Cardinal 1 [id number] 974418 628298 5 BRITE TIP Health 11cm sheath Micropuncture VSI VASCULAR 1 [id number] 492110 469694 5 VSI 4FR kit SOLUTIONS LISSA JEJUNAL RONEL-ALLYSON 1 0200-14 816843 5 FEEDING TUBE 14FR. Signature Audit Ward Stage Time Signature Unsigned Intra-Procedure 09/20/2017 Gris Carson 9:40:07 AM RT(R) Signatures Monitor : Gris Carson RT Signature : Date : Time : [address] [address] [place] [address]
--- NOTE | ~2017-08-19 | OP ---
PATIENT NAME: ARTHUR TOWNSEND MEDICAL RECORD: [id number] :67 LOCATION:[facility] D.2301 ADMISSION DATE:08/19/17 SURGEON: JEREMIAH BRAGA MD DATE OF OPERATION: 08/19/2017 SURGEON: Jeremiah Braga MD. PREOPERATIVE DIAGNOSIS: Esophageal cancer. POSTOPERATIVE DIAGNOSIS: Esophageal cancer. PROCEDURE PERFORMED: 1. Laparoscopic converted to open transhiatal esophagectomy. 2. Pyloroplasty. 3. Laparoscopic jejunal feeding tube placement. 4. Right subclavian central venous line. ANESTHESIA: General. COMPLICATIONS: None. SPECIMENS: Partial gastrectomy, partial esophagus. Case was clean contaminated. ESTIMATED BLOOD LOSS: 600 cc. OPERATIVE COURSE: After consent was obtained, the patient was taken to the operating room and placed in the supine position on the operating table. Next, general anesthesia was given via endotracheal intubation after a timeout was taken to confirm the correct patient and procedure. The abdomen and left neck were both prepped and draped in typical sterile fashion. An A-line was placed. A Wyman was placed. A timeout was taken to confirm the correct patient and procedure. A stab incision was made just above the umbilicus. Using a 10-mm bladeless optical trocar, the abdomen was entered under direct laparoscopic vision. Adequate pneumoperitoneum was achieved. The patient was placed in steep reverse Trendelenburg position. At this time, all remaining instruments were placed. Bharathi liver retractor was placed in the subxiphoid position, 12 mm and 5-mm trocar in the right lateral quadrants, two 5-mm trocars in the left lateral quadrant. The left lobe of the liver was exposed, was elevated exposing GE junction. The greater curve of the stomach was mobilized using the Harmonic scalpel, staying approximately 4 cm from the greater curve as not to injure the gastroepiploic vessel. The mesentery was divided along the spleen up to the left crura. Next, the gastrohepatic ligament was opened using Harmonic scalpel. Dissection continued to the right crura. Dissection continued anterior and posteriorly completing a full circumferential dissection of the GE junction at the hiatus. Next, the celiac trunk was meticulously dissected. The left gastric artery was identified. It was taken with 2 clips proximal and 2 clips distal and transected. Next, extensive laparoscopic mediastinal dissection was performed with the Harmonic scalpel and blunt dissection. Next, the laparoscopic jejunal feeding tube was placed, the greater omentum was retracted cephalad, transverse mesocolon was identified. It was followed the ligament of Treitz and approximately 15 cm ligament of Treitz. Two pursestring and 2-0 silk sutures were placed and then secured. An enterotomy was made. The sutures were secured to the anterior abdominal wall and skin incision was made. OPERATIVE REPORT [id number] ARTHUR TOWNSEND The 18-Dutch jejunal feeding tube was passed into the anterior abdominal wall into the enterotomy. The balloon was inflated. It was secured to the skin with nylon suture. Next, a laparoscopic pyloroplasty was performed. The pylorus was incised. At this time, there was significant bleeding encountered at the gastroduodenal vessel that cannot be controlled laparoscopically. An incision was made in the upper midline. The vessels were isolated and identified. All bleeding was tied off using 2-0 and 3-0 silk suture. Once the balloon was under control, the pyloroplasty was finished with the hand sewn in a standard Heineke-Mikulicz pyloroplasty fashion using 2-0 Stratafix suture. The remaining portion of the hiatus has been dissected by hand. Next, the sternocleidomastoid muscle was identified. A linear incision was made using a 15 blade scalpel, dissection continued. The muscles were retracted laterally. The carotid sheath was identified. Dissection continued, the esophagus was mobilized. Blunt finger dissection was done to anterior and posterior of the esophagus until it met the mediastinal dissection. At this time, once we had full mobilization through the mediastinum, the stomach was transected approximately 5 cm in the GE junction using a linear cutting stapler. A Tionesta drain was tied to both suture lines from the gastric specimen. The gastric specimen esophagus were delivered through the neck incision and the Tionesta drain was removed. The esophagus was transected using a linear cutting stapler. The Ariel drain was passed back and forth to the mediastinal in several occasions to make sure we had an adequate tract. The Ariel drain was sutured to the tubular stomach. The stomach was delivered into the neck incision. Enterotomies were made and again, a esophagogastrostomy was created with the linear cutting stapler and NG tube has passed under direct vision. The common enterotomy was closed with a 3-0 Stratafix suture. A FARA drain was placed. The neck incision was then irrigated and suctioned. It was closed in 3 layers. The muscle layer was closed with 3-0 Vicryl sutures, subcutaneous tissue closed with 3-0 Vicryl suture. The skin was closed with 4-0 Monocryl. At this time, the abdomen was copiously irrigated and suctioned. A FARA drain was placed along the pyloroplasty and the liver bed. The Bharathi liver retractor was removed. The Harrison retractor was removed. The fascia was reapproximated using #1 looped PDS. Skin was closed with sandra. At the end of the case, all needle and instrument counts were correct. No complications occurred. Prior to patient being transferred to the ICU, a right subclavian central venous line was placed. A post-procedure chest x-ray was performed that showed adequate placement line, no pneumothorax, no pleural effusions. The patient was transferred to the ICU in critical condition, intubated. At the end of the case, all needle and instrument counts were correct. TRANSINT:[id number] Voice Confirmation ID: [id number] DOCUMENT ID: [id number] JEREMIAH BRAGA MD at 0759 CC: [id number] DICTATION DATE: 08/19/171924 SAP TECHNICAL ARCHITECT: 08/20/17 0009 ADM IN [facility] [address] [place] [address]
--- NOTE | ~2017-08-19 | EC ---
PATIENT:ARTHUR TOWNSEND DATE OF SERVICE: 08/19/17 SEX: M MEDICAL RECORD: [id number] DATE OF : 67 [facility]ATION[facility] AGE OF PATIENT: 52 ADMISSION DATE: 08/19/17 REFERRING PHYSICIAN: INTERPRETING PHYSICIAN: GABBIE JARVIS MD ECHOCARDIOGRAM REPORT ECHO CHARGES 4 ECHO COMPLETE CLINICAL DIAGNOSIS: RESP FAILURE,TACHYCARDIA ASSESS FOR PERICARDIAL EFFUSION ECHOCARDIOGRAPHIC MEASUREMENTS (adult normal given) AC root (d.<3.7cm) 4.0 cm LV Septum d (<1.2 cm> 1.6 cm Valve Excursion 1.9 cm LV Septum (systole) 1.7 cm Left Atria (s.<4.0cm> 3.8 cm LVPW d(<1.2cm) 1.5 cm RV (d.<2.3cm) 3.4 cm LVPW (sytole) 2.0 cm LV diastole(<5.6CM) 5.8 cm MV E-F(>70mm/sec) cm LV systole 3.8 cm LVOT Diameter 2.5 cm MV exc.(>10mm) 1.5 cm Est.ejection fraction (50-75%) % Pericardial Effusion N DOPPLER: LVIT cm/sec A 85.0 cm/sec E 95.0 cm/sec LA cm/sec RVSP 25 mmHg LVOT 117 cm/sec AOP1/2T m/s Asc. Ao 160 cm/sec RVOT 118 cm/sec RA cm/sec PA 127 cm/sec AV Gradient Peak 10.28mmHg AV Mean 5.29 mmHg AV Area 3.9 cm MV Gradient Peak 4.67 mmHg MV Mean 1.88 mmHg MV Area cm COMMENTS: Nurse Aide Evaluator: Madhuri MATA Desk Reporter: 4 Dr. Jarvis TAPE# PACS DATE OF SERVICE: 10/29/2017 PROCEDURE: Transthoracic echocardiogram. FINDINGS: 1. Left ventricle is hyperdynamic. Ejection fraction 65%. Endocardium was difficult to visualize, but there are no obvious regional wall motion abnormalities. 2. Left atrium is normal. ECHOCARDIOGRAM REPORT [id number] ARTHUR TOWNSEND 3. Aortic valve is normal. 4. Mitral valve is normal. 5. Tricuspid valve is normal. 6. There is no pericardial effusion. 7. Right ventricle is mildly dilated. 8. The right atrium is normal in size and normal in function. 9. The IVC is normal. 10. The pulmonic valve is not well visualized, but structurally and functionally appears to be normal. CONCLUSION: The patient has mild hyperdynamic LV function, normal structurally otherwise. TRANSINT:[id number] Voice Confirmation ID: [id number] DOCUMENT ID: [id number] GABBIE JARVIS MD at 1118 CC: [id number] DICTATION DATE: 10/29/17 1533 JOURNEYMAN GLAZIER: 10/29/17 1617 DIS IN 10/31/17 [facility] [address] [place] [address]
--- NOTE | ~2017-08-19 | OP ---
PATIENT NAME: ARTHUR TOWNSEND MEDICAL RECORD: [id number] :67 LOCATION:[facility] D.2305 ADMISSION DATE:08/19/17 SURGEON: JEREMIAH BRAGA MD DATE OF OPERATION: 10/10/2017 SURGEON: Jeremiah Braga MD PREOPERATIVE DIAGNOSES: 1. Bacteremia. 2. Esophageal cancer. 3. End-stage renal disease. POSTOPERATIVE DIAGNOSES: 1. Bacteremia. 2. Esophageal cancer. 3. End-stage renal disease. PROCEDURES PERFORMED: 1. Removal of left chest wall tunneled PowerPort. 2. Removal of right tunneled internal jugular HemoSplit catheter. 3. Insertion of right subclavian HemoSplit dialysis catheter with fluoroscopy. ANESTHESIA: General. COMPLICATIONS: None. SPECIMENS: None. Case was contaminated. OPERATIVE COURSE: After consent was obtained, the patient was taken to the operating room and placed in the supine position on the operating table. Next, general anesthesia was given via endotracheal intubation. After a timeout was performed to hat confirm the correct patient and procedure. The bilateral chest marcos were prepped and draped in typical sterile fashion. A right side of the chest was kept under sterile drapes and the local anesthetic was injected above the PowerPort. The previous incision was opened using a 15 blade scalpel. Dissection continued to the level of the port. The port was grasped with a Wiliam device. The Prolene sutures were cut using Metzenbaum scissors. The port and the catheter were removed. The wound was then irrigated. Hemostasis was obtained with electrocautery. The wound was packed with peroxide-soaked gauze dressings. The left side of the chest was covered up. The sterile towels on the right-side of the chest were removed. HemoSplit catheter was tunneled, the sutures were removed. The dissection was carried along the catheter tip to the cuff. Once the cuff was dissected, the HemoSplit catheter was removed. At this time, the right subclavian vein was cannulated on the first pass. Under fluoroscopy, a guidewire was advanced to the atriocaval junction. The needle was removed. The skin incision was made with a needle stick site to allow for the dilators. The tract was then dilated over the wire in a standard Seldinger fashion. Next, a separate skin incision was made after administration of local anesthetic. Incision was made with a 15 blade scalpel. The tunneler was passed from the skin incision site to the needle stick site. Under fluoroscopy, the dilator and breakaway sheath were advanced over the wire at the atriocaval junction. The dilator and wire were then removed. The catheter was then placed through the breakaway sheath and advanced to the atriocaval junction under OPERATIVE REPORT [id number] ARTHUR TOWNSEND fluoroscopy. The breakaway sheath was removed. The needle stick site was closed with 3-0 Vicryl suture. The catheter was secured to the skin using 3-0 nylon suture. Both ports were aspirated and flushed. Sterile dressing was applied to the HemoSplit. At the end of the case, all needle and instrument counts were correct. No complications occurred. The patient was extubated and transferred to the PACU in stable condition. TRANSINT:[id number] Voice Confirmation ID: [id number] DOCUMENT ID: [id number] JEREMIAH BRAGA MD at 0922 CC: [id number] DICTATION DATE: 10/10/17 185 OPTOMETRIC AIDE: 10/10/17 2305 ADM IN [facility] [address] [place] [address]
--- NOTE | ~2017-08-19 | OP ---
PATIENT NAME: ARTHUR TOWNSEND MEDICAL RECORD: [id number] :67 LOCATION:[facility] D.2301 ADMISSION DATE:08/19/17 SURGEON: JEREMIAH BRAGA MD DATE OF OPERATION: 09/04/2017 SURGEON: Jeremiah Braga MD PREOPERATIVE DIAGNOSES: 1. Free air. 2. Sepsis. 3. Esophageal cancer. 4. History of esophagectomy. POSTOPERATIVE DIAGNOSES: 1. Free air. 2. Sepsis. 3. Esophageal cancer. 4. History of esophagectomy. 5. infarcted gastric conduit. ANESTHESIA: General. ESTIMATED BLOOD LOSS: 500 cc. Case was grossly contaminated. OPERATIVE COURSE: After consent was obtained, the patient was taken to the operating room and placed in the supine position on the operating table and timeout was taken to confirm the correct patient and procedure. The abdomen was prepped and draped in typical sterile fashion. Previous sandra were removed. The midline abdominal incision was opened. The skin incision was opened using a 15 blade scalpel. The previous suture was identified, it was cut. The sutures were removed and the abdomen was opened. A Bookwalter was placed to retract the abdomen. Meticulous dissection was then performed in the epigastric region. The distal stomach was grossly necrotic. The pyloromyotomy anastomosis was dehisced. The stomach was followed in its path to the diaphragmatic hiatus. The stomach from the pylorus to the mediastinum was noted to have full thickness necrosis. At this time, the first portion of duodenum was divided, it was closed in 2 layers using 3-0 Vicryl suture. The conduit was mobilized through its course into the abdomen. It was mobilized bluntly through its course into the mediastinum. At this time, the neck was prepped and draped in the typical sterile fashion. The neck incision had been previously opened for drainage. After prep and drape, dissection was done and Weitlaner were placed. The proximal esophagus was identified and was circumferentially dissected. A Ariel dressing was placed. The esophagogastrostomy anastomosis was delivered through the incision. The anastomosis was taken down. At this time, a spit fistula was created into the left anterior chest wall. The fistula was created using 3-0 Vicryl suture. The neck wound was copiously irrigated and suctioned. A FARA drain was placed into the mediastinum at the neck incision. The neck incision was copiously irrigated and suctioned. It was loosely reapproximated. FARA drain was placed to bulb suction. At this time, ostomy appliance was applied. At this time, we returned to the abdomen. The remaining portion of the gastric conduit was bluntly dissected in the mediastinum and delivered through the diaphragm and then the stomach. The specimen was passed off the field. There was full thickness necrosis from proximal margin to distal margin. The upper abdomen and mediastinum were irrigated with approximately 4 liters of warm normal saline. A FARA drain was placed into the mediastinum. A second FARA OPERATIVE REPORT [id number] KRISTIANARTHUR ARPAN drain was placed at the duodenal stump, delivered to the right anterior abdominal wall. During mobilization, an accessory splenic vein was ligated. The vein was identified. Clips were placed on proximal and distal margins. The splenic bed was packed with Nu-Knit. Several additional clips were placed on the accessory splenic vein. Adequate hemostasis was maintained. The abdomen was then again irrigated with additional 2 liters of warm normal saline. At this time, the Bookwalter retractor was removed. The small bowel was run to the ligament of Treitz to terminal ileum and there was no evidence of bowel injury and no evidence of bleeding. All 4 quadrants were irrigated and suctioned. The abdomen was then closed with #1 looped PDS. A wound VAC was placed on the incision. At the end of the case, all needle and instrument counts were correct. The patient was transferred to the ICU in critical condition. TRANSINT:[id number] Voice Confirmation ID: [id number] DOCUMENT ID: [id number] JEREMIAH BRAGA MD at 1637 CC: [id number] DICTATION DATE: 09/04/17 1449 LASER SYSTEMS ENGINEER: 09/04/17 1629 ADM IN [facility] [address] [place] [address]
--- NOTE | ~2017-08-19 | OP ---
PATIENT NAME: ARTHUR TOWNSEND MEDICAL RECORD: [id number] :67 LOCATION:[facility] D.2301 ADMISSION DATE:08/19/17 SURGEON: NUNU BASS MD DATE OF OPERATION: 08/19/2017 ASSISTANCE NOTE I assisted Dr. Deisy Dey with the esophagectomy. I scrubbed in as the case was underway. The laparotomy had already been performed. Dr. Dey was dissecting up into the mediastinum. My involvement in the operation included assistance with delivery of the esophagus and the stomach up through the neck incision. Manipulation of tissues. Irrigation and suctioning. Some hemorrhage control with metallic clips as well as with sutures. Retraction and assistance with creation of the anastomosis in the neck. Assistance with delivery of the distal stomach up into the neck. Closure of the neck incision in 3 layers. Assistance with closure of the midline fascia of the abdomen. Placement of metallic clips for closure of the abdominal incision. TRANSINT:[id number] Voice Confirmation ID: [id number] DOCUMENT ID: [id number] NUNU BASS MD at 1017 CC: [id number] DICTATION DATE: 08/20/17 0935 VACCINES SOLUTIONS SPECIALIST: 08/20/17 1013 ADM IN [facility] [address] [place] [address]
--- NOTE | ~2017-08-19 | OP ---
PATIENT NAME: ARTHUR TOWNSEND MEDICAL RECORD: [id number] :67 [facility] D.2301 ADMISSION DATE:08/19/17 SURGEON: JEREMIAH BRAGA MD DATE OF OPERATION: 09/03/2017 SURGEON: Jeremiah Braga MD PREOPERATIVE DIAGNOSES: 1. Pleural effusion. 2. Anastomotic leak. 3. Free air. POSTOPERATIVE DIAGNOSES: 1. Pleural effusion. 2. Anastomotic leak. 3. Free air. PROCEDURE PERFORMED: 1. Right chest tube thoracostomy. 2. EGD. 3. Neck wound exploration. ANESTHESIA: General. COMPLICATIONS: None. SPECIMENS: None. ESTIMATED BLOOD LOSS: Minimal. OPERATIVE COURSE: After consent was obtained, the right chest wall was prepped and draped in typical sterile fashion. Local anesthetic was administered. Small stab incision was made in the anterior axillary line at the level of the nipple. Dissection continued until the level of the rib and 5th rib was identified. The pleural cavity was entered using a blunt Lauren. A 28-Bhutanese chest tube was placed towards the apex of the lung. There was immediate return of several 100 cc of serosanguineous pleural fluid. Chest tube was placed to suction and it was secured using 0 silk suture. Sterile gauze dressing and tape was applied. Next, an EGD was performed to evaluate the gastric conduit. The proximal anastomosis appeared intact. The stomach was pale and bhatti. No focal necrosis, no obvious area of perforation. The scope was ____ level of the pyloromyotomy. The air appeared to be leakage of the suture line. At this time, the scope was withdrawn and the procedure was terminated. The left neck was prepped and draped in typical sterile fashion. The sutures of the incision were opened using 11-blade scalpel. The area was gently dissected and then packed with sterile gauze dressings. At the end of procedure, all needle and instrument counts were correct. No complications occurred. TRANSINT:[id number] Voice Confirmation ID: [id number] DOCUMENT ID: [id number] OPERATIVE REPORT [id number] KRISTIANARTHURJEREMIAH RAI MD at 1440 CC: [id number] DICTATION DATE: 09/04/17 1056 SEWAGE SCREEN OPERATOR: 09/04/17 1205 ADM IN [address] [place] [address]
--- NOTE | ~2017-08-19 | OP ---
PATIENT NAME: ARTHUR TOWNSEND MEDICAL RECORD: [id number] :67 LOCATION:[facility] D.2305 ADMISSION DATE:08/19/17 SURGEON: MAURILIO BASS MD DATE OF OPERATION: 09/14/2017 PREOPERATIVE DIAGNOSIS: Dislodged jejunostomy tube. POSTOPERATIVE DIAGNOSIS: Dislodged jejunostomy tube. PROCEDURE: Replacement of a 16-Tuvaluan jejunostomy tube. SURGEON: Maurilio Bass MD HOUSING OFFICER: None. BLOOD LOSS: Minimal. ANESTHESIA: None. COMPLICATIONS: None. DESCRIPTION OF PROCEDURE: The patient is having some spit out through the spit fistula. Unfortunately, he is also having some spit coming out through the left neck incision. His J-tube popped out this morning. A stomal appliance was applied over the UPJ tube enterocutaneous opening. I have removed the stomal appliance. I obtained a well-lubricated 16-Tuvaluan J-tube. I checked the balloon, which was patent. I then inserted the well-lubricated balloon down through the enterocutaneous stoma. I inflated the balloon with 15 cc of water. I then pushed down the flange. A followup dye study revealed that the J-tube was well placed within the jejunum. TRANSINT:[id number] Voice Confirmation ID: [id number] DOCUMENT ID: [id number] MAURILIO BASS MD at 0940 CC: [id number] DICTATION DATE: 09/14/17 155 DATASTAGE ARCHITECT: 09/14/17 1756 ADM IN [facility] [address] [id number]
--- NOTE | ~2017-08-19 | OP ---
PATIENT NAME: ARTHUR TOWNSEND MEDICAL RECORD: [id number] :67 LOCATION:[facility] D.2305 ADMISSION DATE:08/19/17 SURGEON: JEREMIAH BRAGA MD DATE OF OPERATION: 09/21/2017 DATE OF PROCEDURE: 09/21/2017 SURGEON: Jeremiah Braga MD PREOPERATIVE DIAGNOSES: 1. End-stage renal disease, on hemodialysis. 2. History of esophagectomy with esophageal fistula. POSTOPERATIVE DIAGNOSES: 1. End-stage renal disease, on hemodialysis. 2. History of esophagectomy with esophageal fistula. PROCEDURE PERFORMED: 1. Removal of left internal jugular Trialysis catheter. 2. Placement of left internal jugular HemoSplit hemodialysis catheter. 3. Left neck wound exploration and wound VAC placement. ANESTHESIA: General. COMPLICATIONS: None. SPECIMENS: None. First half, the case was clean. Second half, the case was contaminated. ESTIMATED BLOOD LOSS: 20 cc. OPERATIVE COURSE: After consent was obtained, the patient was taken to the operating room and placed in supine position on the operating table. The right neck was prepped and draped in typical sterile fashion. A Glidewire was placed through the right internal jugular Trialysis catheter. The Trialysis catheter was removed. The tract was dilated. Local anesthetic was injected below the right clavicle, skin incision was made. The catheter was then tunneled from the skin incision site to the needle stick site. Under fluoroscopy, the dilator and breakaway sheath were advanced over the wire to the atriocaval junction. The wire and dilator were removed. The catheter was placed through the breakaway sheath and advanced into the atriocaval junction. The breakaway sheath was then removed. The catheter was accessed. Both ports were aspirated and the catheter was flushed with 5000 units of heparin with 30 cc of injectable saline. A bowel patch was placed. The catheter was secured to the skin and covered with sterile dressing. Needlestick site was closed with 3-0 Vicryl suture. At this time, the left neck was prepped and draped in typical sterile fashion. The left neck wound incision was opened, there was a small perforation in the cervical esophagus prior to the exit site from the skin. The opening was oversewn with 3-0 Vicryl suture and a VAC was placed into the left neck incision and closed. At the end of the case, all needle and sponge counts were correct. No complications occurred. The patient was returned to the ICU in stable condition. TRANSINT:[id number] Voice Confirmation ID: [id number] DOCUMENT ID: [id number] OPERATIVE REPORT [id number] ARTHUR TOWNSEND JAMES J MD at 1835 CC: [id number] DICTATION DATE: 09/21/17 1334 ASSOCIATE PROFESSOR OF CHEMISTRY: 09/21/17 1557 ADM IN [address] [place] [address]
--- NOTE | ~2017-08-19 | HEMODYNAMI ---
PATIENT:ARTHUR TOWNSEND MEDICAL RECORD: [id number] : 67 LOCATION:[facility] D.2305 ADMISSION DATE: 08/19/17 Generatedon:10/15/201712:02 Patient name: ARTHUR TOWNSEND Patient #: [id number] SSN: : 1965 Date of study: 10/15/2017 Page: Of Hemodynamic Procedure Report Patient Data Patient Demographics Procedure consent was obtained First Name: ARTHUR Gender: Male Last Name: KRISTIAN : 1965 [facility] Initial: ARPAN Age: 52 year(s) Patient #: [id number] Race: Unknown Additional ID: [id number] Contact details Address: [address] [place] [address] State: [place] City: [facility] Zip code: [address] Admission Admission Data Admission Date: 08/19/2017 Admission Time: 7:23 Room #: D.2305 Weight (lbs.): 236 Weight (kg.): 107.05 Procedure Procedure Types Cath Procedure Peripheral Cath Diagnostic Procedure Cath Peripheral Miscellaneous Chest Tube Placement Procedure Description Procedure Date Procedure Date: 10/15/2017 Procedure Start Time: 11:39 Procedure Staff Name Function Brock Arredondo MD Performing Physician Quan Leyva RT Monitor Quan Leyva RT Scrub Tammy Khalil RN Nurse Gris Carson RT Pelota Maker Procedure Data Cath Procedure Fluoroscopy Diagnostic fluoroscopy Total fluoroscopy Time: 0.7 time: 0.7 min min Diagnostic fluoroscopy Total fluoroscopy dose: 14 dose: 14 mGy mGy Procedure Medications Medication Administration Route Dosage Fentanyl I.V. 50 mcg Versed I.V. 1 mg Fentanyl I.V. 50 mcg Versed I.V. 1 mg Hemodynamics Rest Heart Rate: 116 (bpm) Snapshots Pre Cath Intra NCS Post Cath Vital Signs Time Heart Resp SPO2 NIBP Rhythm Pain Sedation Rate (ipm) (%) (mmHg) Status Level (bpm) 11:33:54 118 26 100 116/58(80) NSR 0 (11) 10(A) , No pain 11:38:05 115 16 98 120/60(84) NSR 0 (11) 10(A) , No pain 11:42:22 116 16 100 123/60(99) NSR 0 (11) 10(A) , No pain 11:46:31 117 21 100 112/60(83) NSR 0 (11) 10(A) , No pain 11:50:41 116 19 100 82/58(80) NSR 0 (11) 10(A) , No pain 11:55:40 114 25 Measuring NSR 0 (11) 10(A) , No pain 11:56:42 116 11 100 Out of NSR 0 (11) 10(A) range , No pain 12:01:16 103/49(68) NSR 0 (11) 10(A) , No pain Medications Time Medication Route Dose Verified Delivered Reason Notes Effectivene ss by by 11:42:29 Fentanyl I.V. 50 Brock Tammy for mcg Arnulfo Khalil RN sedation 11:42:39 Versed I.V. 1 mg Brock Tammy for Arnulfo Khalil RN sedation 11:55:15 Fentanyl I.V. 50 Brock Tammy for mcg Arnulfo Khalil RN sedation 11:55:22 Versed I.V. 1 mg Brock Tammy for Arnulfo Khalil RN sedation Procedure Log Time Note 10:47:21 Patient Weight : 236 lbs 11:11:32 Quan Leyva RT (R) (CV) sent for patient. Start room use. 11:11:42 Time tracking: Regular hours 11:11:47 Plan of Care:Hemodynamics will remain stable., Cardiac rhythm will remain stable., Comfort level will be maintained., Respiratory function will remain adequate., Patient/ family verbilizes understanding of procedure., Procedure tolerated without complication., Recovers from procedure without complications.. 11:11:54 Patient received from ICU to IR Alert and oriented. Tansferred to table in Supine position. 11:11:57 Correct patient and procedure confirmed by team. 11:11:58 Signed procedure consent form obtained from patient. 11:11:59 ECG and BP/O2 sat monitors applied to patient. 11:12:00 Full Disclosure recording started 11:12:01 - 11:12:06 H&P Date Dictated: 10/15/2017 Within 30 days and on chart.. 11:12:08 Pre-procedure instructions explained to patient. 11:12:08 Pre-op teaching completed and patient verbalized understanding. 11:12:10 Family in waiting room. 11:12:12 Patient NPO since Midnight. 11:12:26 Is patient on blood thinner?Yes 11:12:32 Use device set IR Diagnostic 11:12:34 Bag Decanter (2002S) opened to sterile field. 11:12:35 Sterile Angiographic Pack opened to sterile field. 11:19:14 pt unable to verbalize due to trach collar unable to answer questions 11:21:54 Sharps counted by scrub and verified by R.N. 11:21:58 Alarms reviewed by R. N. 11:22:04 Right chest area was prepped with chlora-prep and draped in sterile fashion 11:32:44 Vital chart was started 11:32:45 Baseline sample Acquired. 11:32:50 - 11:37:04 Physician arrived 11:37:29 --------ALL STOP TIME OUT------ 11:37:29 Final Timeout: patient, procedure, and site verified with staff and physician. All members of the team are in agreement. 11:37:44 Sedation plan: IV Moderate Sedation Medication:Versed, Fentanyl 11:38:58 Procedure started. 11:39:10 Local anesthetic to Thoracic area with Lidocaine 1% by Brock Arredondo MD.INITIAL ACCESS ONLY 11:40:11 Abscession 14FR drainage catheter ([id number]) opened to sterile field. 11:40:12 Cook WILLY .035 15CM guide wire opened to sterile field. 11:40:13 STOPCOCK 3-Way Large Bore ([id number]) opened to sterile field. 11:42:29 Fentanyl 50 mcg I.V. was administered by Tammy Khalil RN; for sedation ; 11:42:39 Versed 1 mg I.V. was administered by Tammy Khalil RN; for sedation; 11:46:11 chest tube replaced with a 14fr all purpose drain 11:50:20 Procedure ended.(Physican Out) 11:50:35 Fluoroscopy time 00.70 minutes. 11:50:49 Fluoroscopy dose: 14 mGy 11:50:49 Flurop Dose total: 14 11:51:01 Sharps counted by scrub and verified 11:52:56 Procedure and supply charges have been captured, reviewed, submitted an d are correct. 11:55:15 Fentanyl 50 mcg I.V. was administered by Tammy Khalil RN; for sedation ; 11:55:22 Versed 1 mg I.V. was administered by Tammy Khalil RN; for sedation; 12:01:26 Insertion/operative site no bleeding no hematoma. 12:01:33 Post-op/insertion site Right Chest area dressed using a 4 x 4 and Tegaderm. 12:01:45 Post procedure instruction explained to patient.Patient verbalizes understanding. 12:02:05 Report given to ICU. 12:02:08 Patient transfered to ICU with Bed. 12:02:32 Vital chart was stopped Device Usage Item Name Manufacture Quantity Catalog Hospital Part Current Minima l Lot# / Number Charge Number Stock Stock Serial# Code Bag Decanter Microtek 1 [id number] 19459 [id number] 5 () [employer] Sterile Cardinal [address] 347262 [id number] 5 Angiographic [facility] Angiodynamics 1 [id number] 800200 277529 [id number] 5 14FR drainage catheter ([id number]) Cook [facility] [employer]o Medical 1 [id number] 138352 473136 5 [id number] .035 15CM guide [facility] [employer] Medical 1 [id number] 1994 [id number] 5 [id number] 3-Way Large Bore ([id number]) Signature Audit Dunn [place] Stage Time Signature Unsigned Intra-Procedure 10/15/2017 Quan 12:02:29 PM Shuffield RT (R) (CV) Signatures Monitor : Quan Signature : Shuffield RT Date : Time : [address] [place] [address]
--- NOTE | ~2017-08-19 | OP ---
PATIENT NAME: ARTHUR TOWNSEND MEDICAL RECORD: [id number] :67 LOCATION:.[facility] D.2305 ADMISSION DATE:08/19/17 SURGEON: JEREMIAH BRAGA MD DATE OF OPERATION: 10/01/2017 SURGEON: Jeremiah Braga MD PREOPERATIVE DIAGNOSES: 1. Jaundice. 2. Duodenal stump leak. 3. Esophageal cancer. 4. Sacral decubitus ulcer. POSTOPERATIVE DIAGNOSES: 1. Jaundice. 2. Duodenal stump leak. 3. Esophageal cancer. 4. Sacral decubitus ulcer. PROCEDURE PERFORMED: 1. Exploratory laparotomy. 2. Abdominal washout. 3. Cholecystectomy. 4. Duodenal stump revision. 5. Excision of sacral decubitus, 8 cm x 6 cm x 1 cm. ANESTHESIA: General. COMPLICATIONS: None. SPECIMENS: Gallbladder. Case was grossly contaminated. ESTIMATED BLOOD LOSS: 400 cc. OPERATIVE COURSE: After consent was obtained, the patient was taken from the ICU, intubated to the operating room. The abdomen was prepped and draped in typical sterile fashion. Timeout was taken to confirm the correct patient and procedure. An Ioban dressing was placed. The patient's previous midline incision was opened, previous Prolene sutures and PDS sutures were removed. The fascia was identified. Meticulous dissection was performed to free the adhesions from the anterior abdominal wall. Copious amounts of intraabdominal ascites were encountered and suctioned. A Bookwalter retractor was placed. The liver was retracted cephalad. The gallbladder was identified. The gallbladder was dissected using combination of electrocautery and blunt dissection. The cystic artery and cystic duct were identified. Two clips were placed in the proximal cystic duct, 1 clip distal and [address] in the cystic artery. Cystic duct and cystic artery were transected. The remaining portion of the gallbladder was then dissected off the liver bed, removed and sent for permanent pathology. The cystic duct stump was then grasped and a 2-0 silk suture was placed to reinforce the sandra. The liver bed was packed off with Nu-Knit. The hepatic flexure was mobilized on the third portion of the duodenum. The dissection then continued back to the level of the previous duodenal stump closure. At the duodenal stump, there was marked inflammation. The area was OPERATIVE REPORT [id number] ARTHUR TOWNSEND meticulously dissected until the duodenal stump opening was identified. At this time, a Malecot drain was placed into the duodenal stump. Two rows of pursestring sutures were placed around the duodenal stump enclosing the Malecot mushroom tipped catheter. The catheter was then exteriorized through a right upper quadrant incision. The abdomen was then irrigated with 2-3 liters of warmed normal saline. The J-tube was adjusted to an antegrade position. A FARA drain was placed into the left upper quadrant. At this time, careful attention was paid to hemostasis. Tereza was applied to the liver bed. All packs were removed. The Bookwalter retractor was removed. The midline fascia was closed with #1 looped PDS. Wound VAC was placed over the incision, which was greater than 50 squared-cm. The duodenal drain was placed to gravity drainage. The FARA drain was placed to suction. The patient was then placed in the left lateral decubitus position. Escharotomy was performed and the sacral decubitus ulcer was 8 cm x 6 cm x 1 cm. It was debrided until healthy tissue was encountered. Damp saline gauze was then placed over the wound with ABD dressings. At the end of the case, all needle and instrument counts were correct. No complications occurred. The patient was taken to the ICU in stable condition. TRANSINT:[id number] Voice Confirmation ID: [id number] DOCUMENT ID: [id number] JEREMIAH BRAGA MD at 0800 CC: [id number] DICTATION DATE: 10/01/171726 LIABILITY CLAIMS MANAGER: 10/01/17 1853 ADM IN [id number] [place] [address]
--- NOTE | ~2017-08-19 | CN ---
PATIENT NAME:ARTHUR TOWNSEND MEDICAL RECORD: [id number] : 67 LOCATION:[facility].2301 ADMIT DATE: 08/19/17 ACCOUNT: [id number] CONSULTING PHYSICIAN: BARTOLO PIKE MD REFERRING PHYSICIAN: JEREMIAH BRAGA MD DATE OF CONSULTATION: 08/20/2017 CONSULT REQUESTING PHYSICIAN: Jeremiah Braga MD (JJ) REASON FOR CONSULTATION: Vent management. HISTORY OF PRESENT ILLNESS: Mr. Townsend is a 52-year-old gentleman who underwent esophagectomy last night. Now that patient is orally intubated, the history is taken by reviewing the patient's note and talking to the nursing staff. The patient was recently diagnosed with esophageal mass consistent with carcinoma and he was seen by Dr. Duke as well as by Dr. Marquez. Also, the patient has a history of asthma, which is pretty stable. REVIEW OF SYSTEMS: As in history of present illness. PAST MEDICAL HISTORY: 1. Asthma. 2. History of hemoptysis. 3. Gastroesophageal reflux disease. ALLERGIES: HE IS ALLERGIC TO PENICILLIN. PAST SURGICAL HISTORY: He is now status post esophagectomy. MEDICATIONS: UBmatrix was reviewed. PERSONAL AND SOCIAL HISTORY: The patient is an ex-smoker. He is a nondrinker. FAMILY HISTORY: Significant for cardiovascular disease and diabetes. PHYSICAL EXAMINATION: GENERAL: Now, the patient is orally intubated. He is awake and alert. VITAL SIGNS: The blood pressure 110/66, pulse is 128, respirations 20, temperature is 98.2, and SpO2 96%. He is on 40% oxygen, CPAP with pressure support of 10. HEENT: Conjunctivae are pink. Sclerae nonicteric. NECK: Supple, no JVD. CHEST: There is no wheeze, no rales. HEART: Rhythm regular, normal sound, no murmur. ABDOMEN: Soft. There is a PEG tube in place and incision. RECTAL: Deferred. EXTREMITIES: No cyanosis, no clubbing, no pedal edema. SKIN: Warm, normal turgor. CENTRAL NERVOUS SYSTEM: The patient is awake. He follows commands. LABORATORY DATA: CBC: WBC 10,000, hemoglobin 11.7, hematocrit 34.6, platelet count 89. Chemistry: Sodium 143, potassium is 3.8, BUN is 11, creatinine 1.3. ABG: The pH is 7.23, pCO2 60.1, the pO2 is 87. IMAGING: Chest radiograph, there is volume loss in the left lower lobe, CONSULT REPORT [id number] ARTHUR TOWNSEND possible atelectasis, possible pneumonia. IMPRESSION: 1. Acute hypoxic respiratory failure post-procedure. 2. Respiratory acidosis secondary to hypercapnia, most likely post-surgery and narcotics medication. 3. Status post esophagectomy. 4. History of CA of the esophagus. 5. History of asthma. 6. Gastroesophageal reflux disease. 7. Atelectasis, left lower lobe. RECOMMENDATION: 1. We will continue the mechanical ventilation. Repeat the ABG when the patient's pH is normal and the patient is more awake and alert, we will try to extubate the patient. 2. Continue albuterol/ipratropium nebulizer. I will add Brovana, budesonide nebulizer. 3. Frequent suction. Dr. Braga, thank you for involving me in the care of Mr. Townsend. The critical care time is 45 minutes. TRANSINT:[id number] Voice Confirmation ID: [id number] DOCUMENT ID: [id number] BARTOLO PIKE MD at 1035 CC: JEREMIAH BRAGA MD [id number] DICTATION DATE: 08/20/17 1021 CLUB WAITER/WAITRESS: 08/20/17 1045 ADM IN [facility] [address] [place] [address]
[2017-08-19 16:07] LABS: BASOPHILS 0.1 % (0-2); EOSINOPHILS 1.1 % (0-7); HEMATOCRIT 36.7 % (42.0-54.0); HEMOGLOBIN 12.2 g/dL (13.5-17.5); IMMATURE GRANULOCYTES 0.6 % (0-5); LYMPHOCYTES 8.6 % (15-50); MCH 31.9 pg (26.0-34.0); MCHC 33.2 g/dL (31.0-37.0); MCV 95.8 fL (80.0-100.0); MEAN PLATELET VOLUME 9.6 fL (7.4-10.4); NEUTROPHILS 83.6 % (40-80); PLATELET COUNT 165 10x3/uL (130-400); RBC 3.83 10x6/uL (4.20-6.10); RDW 22.8 % (11.5-14.5)
[2017-08-19 17:09] LABS: WBC 21.3 10x3/uL (4.8-10.8)
[2017-08-19 17:11] LABS: HEMATOCRIT 26.6 % (42.0-54.0); HEMOGLOBIN 8.8 g/dL (13.5-17.5); MCH 31.5 pg (26.0-34.0); MCHC 33.1 g/dL (31.0-37.0); MCV 95.3 fL (80.0-100.0); MEAN PLATELET VOLUME 8.8 fL (7.4-10.4); PLATELET COUNT 129 10x3/uL (130-400); RBC 2.79 10x6/uL (4.20-6.10); RDW 22.4 % (11.5-14.5)
[2017-08-19 17:35] LABS: LYMPHOCYTES 10 % (15-50); NEUTROPHILS 66 % (40-80)
[2017-08-19 17:36] LABS: PLATELET ESTIMATE NORMAL
[2017-08-20] VITALS (59 sets, daily range): BP systolic 75–122; BP diastolic 54–87; BMI 30.2
[2017-08-20 00:14] LABS: ALBUMIN 2.3 g/dL (3.4-5.0); ANION GAP 14.7 mmol/L (8-16); BILIRUBIN - TOTAL 1.64 mg/dL (0.2-1.3); CALCIUM 8.3 mg/dL (8.5-10.1); CARBON DIOXIDE 25.4 mmol/L (21.0-32.0); CREATININE - SERUM 1.4 mg/dL (0.6-1.3); POTASSIUM - SERUM 4.1 mmol/L (3.5-5.1); PROTEIN - SERUM 5.4 g/dL (6.4-8.2)
[2017-08-20 00:23] LABS: BASOPHILS 0.1 % (0-2); EOSINOPHILS 0 % (0-7); IMMATURE GRANULOCYTES 0.4 % (0-5); LYMPHOCYTES 4.1 % (15-50); MCH 30.6 pg (26.0-34.0); MCHC 33.9 g/dL (31.0-37.0); MEAN PLATELET VOLUME 10.2 fL (7.4-10.4); MONOCYTES 7.7 % (2-11); NEUTROPHILS 87.7 % (40-80); PLATELET COUNT 105 10x3/uL (130-400); RDW 20.8 % (11.5-14.5)
[2017-08-20 00:27] LABS: HEMATOCRIT 38.9 % (42.0-54.0); HEMOGLOBIN 13.2 g/dL (13.5-17.5); RBC 4.32 10x6/uL (4.20-6.10); WBC 10.7 10x3/uL (4.8-10.8)
[2017-08-20 05:38] LABS: BASOPHILS 0 % (0-2); EOSINOPHILS 0 % (0-7); HEMATOCRIT 34.6 % (42.0-54.0); HEMOGLOBIN 11.7 g/dL (13.5-17.5); IMMATURE GRANULOCYTES 0.3 % (0-5); LYMPHOCYTES 6.1 % (15-50); MCH 30.3 pg (26.0-34.0); MCHC 33.8 g/dL (31.0-37.0); MCV 89.6 fL (80.0-100.0); MEAN PLATELET VOLUME 9.4 fL (7.4-10.4); MONOCYTES 9.2 % (2-11); NEUTROPHILS 84.4 % (40-80); PLATELET COUNT 89 10x3/uL (130-400); RBC 3.86 10x6/uL (4.20-6.10); RDW 21.5 % (11.5-14.5)
[2017-08-20 05:39] LABS: ANION GAP 11.8 mmol/L (8-16); CREATININE - SERUM 1.3 mg/dL (0.6-1.3); MAGNESIUM - SERUM 1.3 mg/dL (1.8-2.4); POTASSIUM - SERUM 3.8 mmol/L (3.5-5.1)
[2017-08-20 05:47] LABS: APTT 29.4 SECONDS (22.8-39.4); INR 1.04 (0.85-1.17); PROTIME 13.5 SECONDS (11.6-15.0)
[2017-08-20 06:29] LABS: PLATELET ESTIMATE DECREASED
[2017-08-21] VITALS (95 sets, daily range): BP systolic 80–130; BP diastolic 42–96
[2017-08-21 03:56] LABS: BASOPHILS 0.1 % (0-2); EOSINOPHILS 0.3 % (0-7); HEMATOCRIT 30.9 % (42.0-54.0); HEMOGLOBIN 10.4 g/dL (13.5-17.5); IMMATURE GRANULOCYTES 0.4 % (0-5); LYMPHOCYTES 5.4 % (15-50); MCH 30.8 pg (26.0-34.0); MCHC 33.7 g/dL (31.0-37.0); MCV 91.4 fL (80.0-100.0); MONOCYTES 6.5 % (2-11); NEUTROPHILS 87.3 % (40-80); PLATELET COUNT 106 10x3/uL (130-400); RBC 3.38 10x6/uL (4.20-6.10); RDW 22.3 % (11.5-14.5)
[2017-08-21 04:14] LABS: ANION GAP 10.7 mmol/L (8-16); CALCIUM 7.8 mg/dL (8.5-10.1); CARBON DIOXIDE 26.9 mmol/L (21.0-32.0); CREATININE - SERUM 1.4 mg/dL (0.6-1.3); MAGNESIUM - SERUM 1.2 mg/dL (1.8-2.4); POTASSIUM - SERUM 3.6 mmol/L (3.5-5.1)
[2017-08-22] VITALS (84 sets, daily range): BP systolic 83–113; BP diastolic 37–68
[2017-08-22 04:33] LABS: BASOPHILS 0.1 % (0-2); EOSINOPHILS 0.9 % (0-7); HEMATOCRIT 31.3 % (42.0-54.0); HEMOGLOBIN 10.7 g/dL (13.5-17.5); IMMATURE GRANULOCYTES 0.6 % (0-5); LYMPHOCYTES 3.6 % (15-50); MCH 31.8 pg (26.0-34.0); MCHC 34.2 g/dL (31.0-37.0); MCV 92.9 fL (80.0-100.0); MEAN PLATELET VOLUME 9.7 fL (7.4-10.4); MONOCYTES 4.5 % (2-11); NEUTROPHILS 90.3 % (40-80); PLATELET COUNT 104 10x3/uL (130-400); RBC 3.37 10x6/uL (4.20-6.10); RDW 21.1 % (11.5-14.5); WBC 17.5 10x3/uL (4.8-10.8)
[2017-08-22 04:51] LABS: ANION GAP 10.3 mmol/L (8-16); CALCIUM 7.8 mg/dL (8.5-10.1); CARBON DIOXIDE 25.3 mmol/L (21.0-32.0); CREATININE - SERUM 1.6 mg/dL (0.6-1.3); MAGNESIUM - SERUM 1.8 mg/dL (1.8-2.4); POTASSIUM - SERUM 3.6 mmol/L (3.5-5.1)
[2017-08-22 12:48] LABS: BASOPHILS 0.1 % (0-2); EOSINOPHILS 1.4 % (0-7); HEMATOCRIT 32.7 % (42.0-54.0); HEMOGLOBIN 10.9 g/dL (13.5-17.5); IMMATURE GRANULOCYTES 0.5 % (0-5); LYMPHOCYTES 3.7 % (15-50); MCH 30.8 pg (26.0-34.0); MCHC 33.3 g/dL (31.0-37.0); MCV 92.4 fL (80.0-100.0); MEAN PLATELET VOLUME 9.5 fL (7.4-10.4); MONOCYTES 4.1 % (2-11); NEUTROPHILS 90.2 % (40-80); PLATELET COUNT 102 10x3/uL (130-400); RBC 3.54 10x6/uL (4.20-6.10); RDW 21.1 % (11.5-14.5); WBC 19.2 10x3/uL (4.8-10.8)
[2017-08-23] VITALS (67 sets, daily range): BP systolic 94–121; BP diastolic 54–76
[2017-08-23 04:24] LABS: BASOPHILS 0.1 % (0-2); HEMATOCRIT 31.8 % (42.0-54.0); HEMOGLOBIN 10.5 g/dL (13.5-17.5); IMMATURE GRANULOCYTES 0.8 % (0-5); LYMPHOCYTES 2.8 % (15-50); MCH 31.3 pg (26.0-34.0); MEAN PLATELET VOLUME 9.9 fL (7.4-10.4); MONOCYTES 5.2 % (2-11); NEUTROPHILS 89.1 % (40-80); PLATELET COUNT 119 10x3/uL (130-400); RBC 3.36 10x6/uL (4.20-6.10); RDW 21.2 % (11.5-14.5); WBC 17.8 10x3/uL (4.8-10.8)
[2017-08-23 04:27] LABS: MCV 94.6 fL (80.0-100.0)
[2017-08-23 04:41] LABS: ALBUMIN 1.3 g/dL (3.4-5.0); ANION GAP 9.5 mmol/L (8-16); BILIRUBIN - TOTAL 1.62 mg/dL (0.2-1.3); CALCIUM 7.9 mg/dL (8.5-10.1); CARBON DIOXIDE 27.7 mmol/L (21.0-32.0); CREATININE - SERUM 1.8 mg/dL (0.6-1.3)
[2017-08-23 04:43] LABS: POTASSIUM - SERUM 4.2 mmol/L (3.5-5.1)
[2017-08-24] VITALS (56 sets, daily range): BP systolic 104–175; BP diastolic 56–99
[2017-08-24 03:51] LABS: BASOPHILS 0.1 % (0-2); EOSINOPHILS 3.1 % (0-7); HEMATOCRIT 29.9 % (42.0-54.0); HEMOGLOBIN 9.9 g/dL (13.5-17.5); IMMATURE GRANULOCYTES 0.8 % (0-5); LYMPHOCYTES 2.8 % (15-50); MCHC 33.1 g/dL (31.0-37.0); MCV 93.7 fL (80.0-100.0); MEAN PLATELET VOLUME 9.5 fL (7.4-10.4); MONOCYTES 6.9 % (2-11); NEUTROPHILS 86.3 % (40-80); PLATELET COUNT 123 10x3/uL (130-400); RBC 3.19 10x6/uL (4.20-6.10); RDW 21.1 % (11.5-14.5); WBC 15.5 10x3/uL (4.8-10.8)
[2017-08-24 04:04] LABS: ALBUMIN 1.1 g/dL (3.4-5.0); ANION GAP 12.1 mmol/L (8-16); BILIRUBIN - TOTAL 2.2 mg/dL (0.2-1.3); CALCIUM 8.1 mg/dL (8.5-10.1); CARBON DIOXIDE 23.8 mmol/L (21.0-32.0); CREATININE - SERUM 1.6 mg/dL (0.6-1.3); MAGNESIUM - SERUM 2.1 mg/dL (1.8-2.4); POTASSIUM - SERUM 3.9 mmol/L (3.5-5.1); PROTEIN - SERUM 5.1 g/dL (6.4-8.2)
[2017-08-25] VITALS (25 sets, daily range): BP systolic 107–170; BP diastolic 61–79
[2017-08-25 04:17] LABS: BASOPHILS 0 % (0-2); EOSINOPHILS 1.6 % (0-7); HEMATOCRIT 27.4 % (42.0-54.0); LYMPHOCYTES 3.7 % (15-50); MCH 30.7 pg (26.0-34.0); MCHC 32.8 g/dL (31.0-37.0); MCV 93.5 fL (80.0-100.0); MEAN PLATELET VOLUME 9.3 fL (7.4-10.4); MONOCYTES 8.3 % (2-11); NEUTROPHILS 84.4 % (40-80); PLATELET COUNT 116 10x3/uL (130-400); RBC 2.93 10x6/uL (4.20-6.10); RDW 21.1 % (11.5-14.5)
[2017-08-25 04:23] LABS: WBC 10.8 10x3/uL (4.8-10.8)
[2017-08-25 04:43] LABS: ALBUMIN 1.2 g/dL (3.4-5.0); ANION GAP 14.3 mmol/L (8-16); BILIRUBIN - TOTAL 3.63 mg/dL (0.2-1.3); CALCIUM 8.3 mg/dL (8.5-10.1); CARBON DIOXIDE 22.6 mmol/L (21.0-32.0); CREATININE - SERUM 1.7 mg/dL (0.6-1.3); POTASSIUM - SERUM 3.9 mmol/L (3.5-5.1); PROTEIN - SERUM 5.4 g/dL (6.4-8.2)
[2017-08-25 14:00] LABS: ALBUMIN 1.3 g/dL (3.4-5.0); BILIRUBIN - DIRECT 3.1 mg/dL (0.00-0.30); BILIRUBIN - INDIRECT 0.54 mg/dL (0.00-1.00); BILIRUBIN - TOTAL 3.64 mg/dL (0.2-1.3); PROTEIN - SERUM 5.4 g/dL (6.4-8.2)
[2017-08-26] VITALS (29 sets, daily range): BP systolic 103–164; BP diastolic 56–82
[2017-08-26 04:50] LABS: BASOPHILS 0.1 % (0-2); HEMATOCRIT 25.3 % (42.0-54.0); HEMOGLOBIN 8.5 g/dL (13.5-17.5); IMMATURE GRANULOCYTES 4.7 % (0-5); LYMPHOCYTES 2.6 % (15-50); MCH 31.5 pg (26.0-34.0); MCHC 33.6 g/dL (31.0-37.0); MCV 93.7 fL (80.0-100.0); MEAN PLATELET VOLUME 9.7 fL (7.4-10.4); MONOCYTES 8.4 % (2-11); NEUTROPHILS 83.2 % (40-80); PLATELET COUNT 125 10x3/uL (130-400); RDW 21.1 % (11.5-14.5); WBC 10.1 10x3/uL (4.8-10.8)
[2017-08-26 05:14] LABS: ALBUMIN 1.3 g/dL (3.4-5.0); ANION GAP 12.1 mmol/L (8-16); BILIRUBIN - TOTAL 4.53 mg/dL (0.2-1.3); CALCIUM 8.2 mg/dL (8.5-10.1); CARBON DIOXIDE 24.6 mmol/L (21.0-32.0); CREATININE - SERUM 1.6 mg/dL (0.6-1.3); POTASSIUM - SERUM 3.7 mmol/L (3.5-5.1); PROTEIN - SERUM 5.4 g/dL (6.4-8.2)
[2017-08-26 12:10] LABS: APTT 45.3 SECONDS (22.8-39.4); INR 1.05 (0.85-1.17); PROTIME 13.5 SECONDS (11.6-15.0)
[2017-08-26 17:18] LABS: PROTEIN - BODY FLUID 2.6 G/DL
[2017-08-26 22:41] LABS: EOS BF 2 %; MACROPHAGES BF 6 %; NEUT - BF 88 %
[2017-08-27] VITALS (26 sets, daily range): BP systolic 117–164; BP diastolic 59–79
[2017-08-27 04:13] LABS: BASOPHILS 0.2 % (0-2); EOSINOPHILS 1.3 % (0-7); HEMATOCRIT 28.2 % (42.0-54.0); HEMOGLOBIN 9.5 g/dL (13.5-17.5); IMMATURE GRANULOCYTES 3.8 % (0-5); LYMPHOCYTES 2.7 % (15-50); MCH 30.9 pg (26.0-34.0); MCHC 33.7 g/dL (31.0-37.0); MCV 91.9 fL (80.0-100.0); MEAN PLATELET VOLUME 9.5 fL (7.4-10.4); MONOCYTES 7.2 % (2-11); NEUTROPHILS 84.8 % (40-80); PLATELET COUNT 128 10x3/uL (130-400); RBC 3.07 10x6/uL (4.20-6.10); RDW 21.1 % (11.5-14.5)
[2017-08-27 04:39] LABS: ALBUMIN 1.5 g/dL (3.4-5.0); ANION GAP 12.5 mmol/L (8-16); BILIRUBIN - TOTAL 5.2 mg/dL (0.2-1.3); CARBON DIOXIDE 24.9 mmol/L (21.0-32.0); CREATININE - SERUM 1.3 mg/dL (0.6-1.3); MAGNESIUM - SERUM 2.4 mg/dL (1.8-2.4); POTASSIUM - SERUM 3.4 mmol/L (3.5-5.1); PROTEIN - SERUM 5.3 g/dL (6.4-8.2)
[2017-08-27 05:11] LABS: PHOSPHOROUS 4.7 mg/dL (2.5-4.9)
[2017-08-27 15:22] LABS: AFB SPECIMEN PROCESSING Concentration (())
[2017-08-28] VITALS (25 sets, daily range): BP systolic 91–176; BP diastolic 56–770
[2017-08-28 06:51] LABS: BASOPHILS 0.1 % (0-2); EOSINOPHILS 1.2 % (0-7); HEMATOCRIT 26.6 % (42.0-54.0); HEMOGLOBIN 9.1 g/dL (13.5-17.5); IMMATURE GRANULOCYTES 2.7 % (0-5); LYMPHOCYTES 1.6 % (15-50); MCH 31.3 pg (26.0-34.0); MCHC 34.2 g/dL (31.0-37.0); MCV 91.4 fL (80.0-100.0); MONOCYTES 8.3 % (2-11); NEUTROPHILS 86.1 % (40-80); RBC 2.91 10x6/uL (4.20-6.10)
[2017-08-28 06:52] LABS: PLATELET COUNT 157 10x3/uL (130-400)
[2017-08-28 07:03] LABS: ALBUMIN 1.8 g/dL (3.4-5.0); ANION GAP 13.3 mmol/L (8-16); BILIRUBIN - TOTAL 5.12 mg/dL (0.2-1.3); CARBON DIOXIDE 26.7 mmol/L (21.0-32.0); CREATININE - SERUM 1.3 mg/dL (0.6-1.3); PROTEIN - SERUM 4.5 g/dL (6.4-8.2)
[2017-08-28 13:16] LABS: FUNGUS STAIN Final report (())
[2017-08-28 14:24] LABS: ACID FAST SMEAR Negative (()); AFB SPECIMEN PROCESSING Concentration (()); FUNGUS STAIN Final report (())
[2017-08-29] VITALS (24 sets, daily range): BP systolic 94–160; BP diastolic 52–81
[2017-08-29 05:02] LABS: BASOPHILS 0.1 % (0-2); EOSINOPHILS 2.1 % (0-7); HEMATOCRIT 28.2 % (42.0-54.0); HEMOGLOBIN 9.8 g/dL (13.5-17.5); IMMATURE GRANULOCYTES 2.5 % (0-5); LYMPHOCYTES 4.1 % (15-50); MCH 32.2 pg (26.0-34.0); MCHC 34.8 g/dL (31.0-37.0); MCV 92.8 fL (80.0-100.0); MONOCYTES 7.8 % (2-11); NEUTROPHILS 83.4 % (40-80); PLATELET COUNT 181 10x3/uL (130-400); RBC 3.04 10x6/uL (4.20-6.10); WBC 13.5 10x3/uL (4.8-10.8)
[2017-08-29 05:15] LABS: INR 0.99 (0.85-1.17); PROTIME 12.9 SECONDS (11.6-15.0)
[2017-08-29 06:13] LABS: CREATININE - SERUM 1.3 mg/dL (0.6-1.3); MAGNESIUM - SERUM 2.3 mg/dL (1.8-2.4); PHOSPHOROUS 3.5 mg/dL (2.5-4.9)
[2017-08-29 06:14] LABS: ANION GAP 12.8 mmol/L (8-16); BILIRUBIN - TOTAL 5.68 mg/dL (0.2-1.3); CALCIUM 7.9 mg/dL (8.5-10.1); CARBON DIOXIDE 26.6 mmol/L (21.0-32.0); POTASSIUM - SERUM 3.4 mmol/L (3.5-5.1); PROTEIN - SERUM 4.6 g/dL (6.4-8.2)
[2017-08-30] VITALS (24 sets, daily range): BP systolic 90–160; BP diastolic 27–74
[2017-08-30 05:06] LABS: BASOPHILS 0.2 % (0-2); EOSINOPHILS 2.3 % (0-7); HEMATOCRIT 25.7 % (42.0-54.0); HEMOGLOBIN 8.8 g/dL (13.5-17.5); IMMATURE GRANULOCYTES 1.9 % (0-5); LYMPHOCYTES 2.2 % (15-50); MCH 31.8 pg (26.0-34.0); MCHC 34.2 g/dL (31.0-37.0); MCV 92.8 fL (80.0-100.0); MEAN PLATELET VOLUME 10.3 fL (7.4-10.4); MONOCYTES 8.8 % (2-11); NEUTROPHILS 84.6 % (40-80); PLATELET COUNT 183 10x3/uL (130-400); RBC 2.77 10x6/uL (4.20-6.10); RDW 19.9 % (11.5-14.5); WBC 10.9 10x3/uL (4.8-10.8)
[2017-08-30 05:57] LABS: ANION GAP 11.5 mmol/L (8-16); CALCIUM 8.4 mg/dL (8.5-10.1); CARBON DIOXIDE 27.9 mmol/L (21.0-32.0); CREATININE - SERUM 1.3 mg/dL (0.6-1.3); MAGNESIUM - SERUM 2.4 mg/dL (1.8-2.4); PHOSPHOROUS 4.3 mg/dL (2.5-4.9); POTASSIUM - SERUM 3.4 mmol/L (3.5-5.1)
[2017-08-30 05:58] LABS: BILIRUBIN - TOTAL 6.05 mg/dL (0.2-1.3); PROTEIN - SERUM 5.6 g/dL (6.4-8.2)
[2017-08-30 13:15] LABS: FUNGUS STAIN Final report (())
[2017-08-30 21:08] LABS: AFB SPECIMEN PROCESSING Concentration (())
[2017-08-31] VITALS (24 sets, daily range): BP systolic 113–147; BP diastolic 57–75
[2017-08-31 04:23] LABS: BASOPHILS 0.1 % (0-2); EOSINOPHILS 1.1 % (0-7); HEMATOCRIT 22.9 % (42.0-54.0); HEMOGLOBIN 8.1 g/dL (13.5-17.5); IMMATURE GRANULOCYTES 1.7 % (0-5); LYMPHOCYTES 2.3 % (15-50); MCH 33.2 pg (26.0-34.0); MCHC 35.4 g/dL (31.0-37.0); MCV 93.9 fL (80.0-100.0); MEAN PLATELET VOLUME 10.5 fL (7.4-10.4); MONOCYTES 7.2 % (2-11); NEUTROPHILS 87.6 % (40-80); PLATELET COUNT 200 10x3/uL (130-400); RBC 2.44 10x6/uL (4.20-6.10); WBC 11.2 10x3/uL (4.8-10.8)
[2017-08-31 05:06] LABS: ANION GAP 12.5 mmol/L (8-16); BILIRUBIN - TOTAL 5.78 mg/dL (0.2-1.3); CALCIUM 7.7 mg/dL (8.5-10.1); CARBON DIOXIDE 25.2 mmol/L (21.0-32.0); CREATININE - SERUM 1.2 mg/dL (0.6-1.3); POTASSIUM - SERUM 3.7 mmol/L (3.5-5.1)
[2017-08-31 05:09] LABS: PROTEIN - SERUM 5.4 g/dL (6.4-8.2)
[2017-08-31 13:48] LABS: HEMATOCRIT 24.3 % (42.0-54.0); HEMOGLOBIN 8.4 g/dL (13.5-17.5)
[2017-09-01] VITALS (23 sets, daily range): BP systolic 108–147; BP diastolic 61–76
[2017-09-01 04:17] LABS: BASOPHILS 0.2 % (0-2); EOSINOPHILS 1.9 % (0-7); HEMATOCRIT 24.5 % (42.0-54.0); HEMOGLOBIN 8.3 g/dL (13.5-17.5); IMMATURE GRANULOCYTES 1.8 % (0-5); LYMPHOCYTES 2.7 % (15-50); MCH 32.5 pg (26.0-34.0); MCHC 33.9 g/dL (31.0-37.0); MEAN PLATELET VOLUME 10.4 fL (7.4-10.4); MONOCYTES 9.4 % (2-11); RBC 2.55 10x6/uL (4.20-6.10); RDW 18.9 % (11.5-14.5); WBC 11.3 10x3/uL (4.8-10.8)
[2017-09-01 04:18] LABS: MCV 96.1 fL (80.0-100.0); PLATELET COUNT 257 10x3/uL (130-400)
[2017-09-01 04:35] LABS: ALBUMIN 1.7 g/dL (3.4-5.0); ANION GAP 9.4 mmol/L (8-16); BILIRUBIN - TOTAL 4.18 mg/dL (0.2-1.3); CALCIUM 7.7 mg/dL (8.5-10.1); CARBON DIOXIDE 27.7 mmol/L (21.0-32.0); CREATININE - SERUM 1.3 mg/dL (0.6-1.3); POTASSIUM - SERUM 4.1 mmol/L (3.5-5.1); PROTEIN - SERUM 5.6 g/dL (6.4-8.2)
[2017-09-01 11:31] LABS: APPEARANCE CLEAR (CLEAR); BILIRUBIN NEGATIVE (NEGATIVE); COLOR DK YELLOW (YELLOW); GLUCOSE NEGATIVE (NEGATIVE); KETONE NEGATIVE (NEGATIVE); NITRITE NEGATIVE (NEGATIVE); PROTEIN 2+ mg/dL (NEGATIVE); SPECIFIC GRAVITY 1.015 (1.005-1.020); UROBILINOGEN NORMAL (NORMAL)
[2017-09-01 11:32] LABS: BACTERIA MODERATE /hpf (NONE SEEN); EPITHELIAL CELLS 0-5 /hpf (0-5); RED CELLS - URINE 0-5 /hpf (0-5); WHITE CELLS - URINE 0-5 /hpf (0-5)
[2017-09-02] VITALS (25 sets, daily range): BP systolic 106–169; BP diastolic 56–82
[2017-09-02 04:18] LABS: HEMATOCRIT 23.7 % (42.0-54.0); HEMOGLOBIN 7.7 g/dL (13.5-17.5); MCHC 32.5 g/dL (31.0-37.0); MEAN PLATELET VOLUME 10.1 fL (7.4-10.4); RBC 2.41 10x6/uL (4.20-6.10); RDW 18.5 % (11.5-14.5); WBC 10.1 10x3/uL (4.8-10.8)
[2017-09-02 04:22] LABS: MCV 98.3 fL (80.0-100.0)
[2017-09-02 04:45] LABS: ALBUMIN 1.5 g/dL (3.4-5.0); ANION GAP 13.7 mmol/L (8-16); BILIRUBIN - DIRECT 2.66 mg/dL (0.00-0.30); BILIRUBIN - INDIRECT 0.72 mg/dL (0.00-1.00); BILIRUBIN - TOTAL 3.38 mg/dL (0.2-1.3); CALCIUM 7.5 mg/dL (8.5-10.1); CARBON DIOXIDE 24.5 mmol/L (21.0-32.0); CREATININE - SERUM 1.4 mg/dL (0.6-1.3); POTASSIUM - SERUM 4.2 mmol/L (3.5-5.1)
[2017-09-02 04:56] LABS: PROTEIN - SERUM 5.8 g/dL (6.4-8.2)
[2017-09-03] VITALS (24 sets, daily range): BP systolic 93–174; BP diastolic 49–90
[2017-09-03 04:08] LABS: BASOPHILS 0.2 % (0-2); EOSINOPHILS 0.4 % (0-7); IMMATURE GRANULOCYTES 1.6 % (0-5); MCH 31.3 pg (26.0-34.0); MCHC 31.6 g/dL (31.0-37.0); MEAN PLATELET VOLUME 10.3 fL (7.4-10.4); MONOCYTES 6.8 % (2-11); PLATELET COUNT 294 10x3/uL (130-400); RDW 18.4 % (11.5-14.5)
[2017-09-03 04:12] LABS: HEMATOCRIT 30.4 % (42.0-54.0); HEMOGLOBIN 9.6 g/dL (13.5-17.5); RBC 3.07 10x6/uL (4.20-6.10); WBC 14.3 10x3/uL (4.8-10.8)
[2017-09-03 04:23] LABS: ALBUMIN 1.7 g/dL (3.4-5.0); BILIRUBIN - TOTAL 3.1 mg/dL (0.2-1.3); CALCIUM 8.4 mg/dL (8.5-10.1); CARBON DIOXIDE 29.2 mmol/L (21.0-32.0); CREATININE - SERUM 1.4 mg/dL (0.6-1.3); MAGNESIUM - SERUM 2.7 mg/dL (1.8-2.4); POTASSIUM - SERUM 4.2 mmol/L (3.5-5.1); PROTEIN - SERUM 6.1 g/dL (6.4-8.2); VANCOMYCIN - RANDOM 13.9 ug/mL (10.0-20.0)
[2017-09-03 13:14] LABS: FUNGUS CULTURE RESULT 1 Candida tropicalis (())
[2017-09-04] VITALS (22 sets, daily range): BP systolic 83–151; BP diastolic 52–76
[2017-09-04 03:50] LABS: BASOPHILS 0.2 % (0-2); EOSINOPHILS 0.3 % (0-7); HEMATOCRIT 28.4 % (42.0-54.0); HEMOGLOBIN 8.8 g/dL (13.5-17.5); LYMPHOCYTES 3.4 % (15-50); MEAN PLATELET VOLUME 10.2 fL (7.4-10.4); MONOCYTES 5.7 % (2-11); NEUTROPHILS 89.4 % (40-80); PLATELET COUNT 280 10x3/uL (130-400); RBC 2.84 10x6/uL (4.20-6.10); RDW 17.9 % (11.5-14.5); WBC 19.7 10x3/uL (4.8-10.8)
[2017-09-04 04:02] LABS: ALBUMIN 1.7 g/dL (3.4-5.0); ANION GAP 10.4 mmol/L (8-16); BILIRUBIN - TOTAL 2.8 mg/dL (0.2-1.3); CALCIUM 8.4 mg/dL (8.5-10.1); CARBON DIOXIDE 29.8 mmol/L (21.0-32.0); CREATININE - SERUM 1.7 mg/dL (0.6-1.3); MAGNESIUM - SERUM 2.8 mg/dL (1.8-2.4); POTASSIUM - SERUM 4.2 mmol/L (3.5-5.1)
[2017-09-05] VITALS (23 sets, daily range): BP systolic 89–120; BP diastolic 50–91
[2017-09-05 05:46] LABS: HEMATOCRIT 26.2 % (42.0-54.0); HEMOGLOBIN 8.4 g/dL (13.5-17.5); MCH 31.1 pg (26.0-34.0); MCHC 32.1 g/dL (31.0-37.0); MEAN PLATELET VOLUME 10.6 fL (7.4-10.4); PLATELET COUNT 245 10x3/uL (130-400); RDW 18.3 % (11.5-14.5); WBC 23.1 10x3/uL (4.8-10.8)
[2017-09-05 07:07] LABS: BILIRUBIN - TOTAL 2.5 mg/dL (0.2-1.3); CALCIUM 7.1 mg/dL (8.5-10.1); CARBON DIOXIDE 24.2 mmol/L (21.0-32.0); MAGNESIUM - SERUM 2.7 mg/dL (1.8-2.4); PROTEIN - SERUM 4.5 g/dL (6.4-8.2)
[2017-09-05 07:08] LABS: ALBUMIN 1.2 g/dL (3.4-5.0); ANION GAP 15.5 mmol/L (8-16); CREATININE - SERUM 2.5 mg/dL (0.6-1.3); POTASSIUM - SERUM 5.7 mmol/L (3.5-5.1)
[2017-09-05 07:13] LABS: HYPOCHROMASIA OCC; LYMPHOCYTES 5 % (15-50); MONOCYTES 3 % (2-11); NEUTROPHILS 86 % (40-80); PLATELET ESTIMATE NORMAL
[2017-09-06] VITALS (24 sets, daily range): BP systolic 102–163; BP diastolic 52–81
[2017-09-06 05:28] LABS: BASOPHILS 0.1 % (0-2); EOSINOPHILS 0.3 % (0-7); HEMATOCRIT 21.4 % (42.0-54.0); HEMOGLOBIN 6.8 g/dL (13.5-17.5); IMMATURE GRANULOCYTES 1.5 % (0-5); LYMPHOCYTES 2.8 % (15-50); MCH 31.2 pg (26.0-34.0); MCHC 31.8 g/dL (31.0-37.0); MCV 98.2 fL (80.0-100.0); MEAN PLATELET VOLUME 10.6 fL (7.4-10.4); MONOCYTES 6.8 % (2-11); NEUTROPHILS 88.5 % (40-80); PLATELET COUNT 240 10x3/uL (130-400); RBC 2.18 10x6/uL (4.20-6.10); RDW 17.8 % (11.5-14.5); WBC 22.5 10x3/uL (4.8-10.8)
[2017-09-06 05:57] LABS: ALBUMIN 1.1 g/dL (3.4-5.0); ANION GAP 17.9 mmol/L (8-16); BILIRUBIN - TOTAL 3.02 mg/dL (0.2-1.3); CALCIUM 7.4 mg/dL (8.5-10.1); MAGNESIUM - SERUM 2.8 mg/dL (1.8-2.4); POTASSIUM - SERUM 5.9 mmol/L (3.5-5.1); PROTEIN - SERUM 5.3 g/dL (6.4-8.2)
[2017-09-06 06:01] LABS: CREATININE - SERUM 3.9 mg/dL (0.6-1.3)
[2017-09-06 11:17] LABS: FUNGUS CULTURE RESULT 1 Candida tropicalis (())
[2017-09-06 18:34] LABS: APPEARANCE HAZY (CLEAR); BILIRUBIN NEGATIVE (NEGATIVE); COLOR DK YELLOW (YELLOW); GLUCOSE NEGATIVE (NEGATIVE); KETONE NEGATIVE (NEGATIVE); NITRITE NEGATIVE (NEGATIVE); PROTEIN 1+ mg/dL (NEGATIVE); SPECIFIC GRAVITY 1.015 (1.005-1.020); UROBILINOGEN NORMAL (NORMAL)
[2017-09-06 18:36] LABS: BACTERIA MODERATE /hpf (NONE SEEN); WHITE CELLS - URINE 0-5 /hpf (0-5)
[2017-09-06 18:39] LABS: CREATININE - URINE 47.5 mg/dL (30-125)
[2017-09-06 18:40] LABS: PRO/CRE RATIO URINE 6.2 mg/g; PROTEIN - URINE 292.8 mg/dL (0.0-11.9)
[2017-09-07] VITALS (24 sets, daily range): BP systolic 123–189; BP diastolic 56–95
[2017-09-07 06:57] LABS: BASOPHILS 0.1 % (0-2); EOSINOPHILS 0.4 % (0-7); HEMATOCRIT 29.3 % (42.0-54.0); HEMOGLOBIN 9.7 g/dL (13.5-17.5); IMMATURE GRANULOCYTES 1.7 % (0-5); LYMPHOCYTES 2.6 % (15-50); MCH 30.5 pg (26.0-34.0); MCHC 33.1 g/dL (31.0-37.0); MCV 92.1 fL (80.0-100.0); MEAN PLATELET VOLUME 10.8 fL (7.4-10.4); MONOCYTES 6.1 % (2-11); NEUTROPHILS 89.1 % (40-80); PLATELET COUNT 240 10x3/uL (130-400); RBC 3.18 10x6/uL (4.20-6.10); RDW 18.3 % (11.5-14.5); WBC 24.6 10x3/uL (4.8-10.8)
[2017-09-07 07:03] LABS: ALBUMIN 1.2 g/dL (3.4-5.0); BILIRUBIN - TOTAL 4.71 mg/dL (0.2-1.3); CALCIUM 8.4 mg/dL (8.5-10.1); CARBON DIOXIDE 22.1 mmol/L (21.0-32.0); CREATININE - SERUM 5.2 mg/dL (0.6-1.3); PROTEIN - SERUM 6.1 g/dL (6.4-8.2); VANCOMYCIN - RANDOM 28.3 ug/mL (10.0-20.0)
[2017-09-07 07:06] LABS: POTASSIUM - SERUM 6.1 mmol/L (3.5-5.1)
[2017-09-08] VITALS (24 sets, daily range): BP systolic 131–165; BP diastolic 61–82
[2017-09-08 06:03] LABS: BASOPHILS 0.2 % (0-2); EOSINOPHILS 1.2 % (0-7); HEMATOCRIT 27.5 % (42.0-54.0); LYMPHOCYTES 3.9 % (15-50); MCH 30.1 pg (26.0-34.0); MCHC 32.7 g/dL (31.0-37.0); MONOCYTES 6.3 % (2-11); NEUTROPHILS 86.4 % (40-80); PLATELET COUNT 281 10x3/uL (130-400); RBC 2.99 10x6/uL (4.20-6.10); RDW 17.4 % (11.5-14.5); WBC 20.1 10x3/uL (4.8-10.8)
[2017-09-08 06:06] LABS: ANION GAP 21.3 mmol/L (8-16); CALCIUM 8.3 mg/dL (8.5-10.1); CREATININE - SERUM 4.5 mg/dL (0.6-1.3); POTASSIUM - SERUM 5.3 mmol/L (3.5-5.1)
[2017-09-09] VITALS (24 sets, daily range): BP systolic 135–178; BP diastolic 65–93
[2017-09-09 04:13] LABS: BASOPHILS 0.2 % (0-2); EOSINOPHILS 1.7 % (0-7); HEMATOCRIT 25.9 % (42.0-54.0); HEMOGLOBIN 8.4 g/dL (13.5-17.5); LYMPHOCYTES 4.9 % (15-50); MCH 29.7 pg (26.0-34.0); MCHC 32.4 g/dL (31.0-37.0); MCV 91.5 fL (80.0-100.0); MEAN PLATELET VOLUME 10.6 fL (7.4-10.4); MONOCYTES 7.9 % (2-11); NEUTROPHILS 80.3 % (40-80); PLATELET COUNT 298 10x3/uL (130-400); RBC 2.83 10x6/uL (4.20-6.10); RDW 16.7 % (11.5-14.5); WBC 15.1 10x3/uL (4.8-10.8)
[2017-09-09 04:36] LABS: ANION GAP 19.9 mmol/L (8-16); CALCIUM 8.6 mg/dL (8.5-10.1); CARBON DIOXIDE 23.7 mmol/L (21.0-32.0); CREATININE - SERUM 5.4 mg/dL (0.6-1.3); POTASSIUM - SERUM 5.6 mmol/L (3.5-5.1); VANCOMYCIN - RANDOM 27.4 ug/mL (10.0-20.0)
[2017-09-10] VITALS (24 sets, daily range): BP systolic 128–167; BP diastolic 73–93
[2017-09-10 05:01] LABS: BASOPHILS 0.2 % (0-2); EOSINOPHILS 0.2 % (0-7); HEMATOCRIT 27.6 % (42.0-54.0); HEMOGLOBIN 9.1 g/dL (13.5-17.5); IMMATURE GRANULOCYTES 5.8 % (0-5); LYMPHOCYTES 5.1 % (15-50); MCH 30.3 pg (26.0-34.0); MEAN PLATELET VOLUME 10.8 fL (7.4-10.4); MONOCYTES 5.3 % (2-11); NEUTROPHILS 83.4 % (40-80); PLATELET COUNT 327 10x3/uL (130-400); RDW 16.4 % (11.5-14.5); WBC 20.3 10x3/uL (4.8-10.8)
[2017-09-10 05:17] LABS: ANION GAP 18.7 mmol/L (8-16); CALCIUM 8.6 mg/dL (8.5-10.1); CARBON DIOXIDE 25.3 mmol/L (21.0-32.0); CREATININE - SERUM 4.9 mg/dL (0.6-1.3); MAGNESIUM - SERUM 2.7 mg/dL (1.8-2.4); VANCOMYCIN - RANDOM 19.8 ug/mL (10.0-20.0)
[2017-09-10 05:29] LABS: PHOSPHOROUS 9.2 mg/dL (2.5-4.9)
[2017-09-10 12:15] LABS: HEPATITIS C ANTIBODY <0.1 (0.0-0.9)
[2017-09-11] VITALS (24 sets, daily range): BP systolic 94–137; BP diastolic 59–85
[2017-09-11 03:49] LABS: BASOPHILS 0.3 % (0-2); EOSINOPHILS 0 % (0-7); HEMATOCRIT 33.6 % (42.0-54.0); HEMOGLOBIN 10.9 g/dL (13.5-17.5); IMMATURE GRANULOCYTES 7.1 % (0-5); LYMPHOCYTES 3.9 % (15-50); MCH 29.9 pg (26.0-34.0); MCHC 32.4 g/dL (31.0-37.0); MCV 92.1 fL (80.0-100.0); NEUTROPHILS 83.7 % (40-80); PLATELET COUNT 391 10x3/uL (130-400); RBC 3.65 10x6/uL (4.20-6.10); RDW 16.2 % (11.5-14.5)
[2017-09-11 04:09] LABS: ANION GAP 16.7 mmol/L (8-16); CALCIUM 8.4 mg/dL (8.5-10.1); CARBON DIOXIDE 25.6 mmol/L (21.0-32.0); CREATININE - SERUM 4.7 mg/dL (0.6-1.3); MAGNESIUM - SERUM 2.8 mg/dL (1.8-2.4); PHOSPHOROUS 8.2 mg/dL (2.5-4.9); POTASSIUM - SERUM 5.3 mmol/L (3.5-5.1); VANCOMYCIN - RANDOM 34.1 ug/mL (10.0-20.0)
[2017-09-11 09:17] LABS: UPE RAND - ALPHA 2 GLOBULIN 19.8 % (()); UPE RAND - BETA GLOBULIN 36.2 % (()); UPE RAND - GAMMA GLOBULIN 17.1 % (())
[2017-09-12] VITALS (27 sets, daily range): BP systolic 74–141; BP diastolic 44–86
[2017-09-12 04:21] LABS: HEMATOCRIT 28.7 % (42.0-54.0); HEMOGLOBIN 9.1 g/dL (13.5-17.5); MCH 29.5 pg (26.0-34.0); MCHC 31.7 g/dL (31.0-37.0); MCV 93.2 fL (80.0-100.0); MEAN PLATELET VOLUME 10.8 fL (7.4-10.4); PLATELET COUNT 417 10x3/uL (130-400); RBC 3.08 10x6/uL (4.20-6.10); RDW 16.5 % (11.5-14.5); WBC 29.9 10x3/uL (4.8-10.8)
[2017-09-12 04:33] LABS: ANION GAP 20.3 mmol/L (8-16); BILIRUBIN - DIRECT 1.89 mg/dL (0.00-0.30); BILIRUBIN - TOTAL 2.39 mg/dL (0.2-1.3); CALCIUM 8.3 mg/dL (8.5-10.1); CARBON DIOXIDE 25.4 mmol/L (21.0-32.0); CREATININE - SERUM 4.3 mg/dL (0.6-1.3); POTASSIUM - SERUM 5.7 mmol/L (3.5-5.1); VANCOMYCIN - RANDOM 20.4 ug/mL (10.0-20.0)
[2017-09-12 04:34] LABS: PRE-ALBUMIN 12.2 mg/dL (18.0-35.7)
[2017-09-12 04:54] LABS: ANISOCYTOSIS 1+; BASOPHILS 1 % (0-2); LYMPHOCYTES 9 % (15-50); MONOCYTES 4 % (2-11); NEUTROPHILS 76 % (40-80); PLATELET ESTIMATE NORMAL; POIKILOCYTOSIS 1+
[2017-09-13] VITALS (25 sets, daily range): BP systolic 105–157; BP diastolic 61–82
[2017-09-13 04:38] LABS: BASOPHILS 0.4 % (0-2); EOSINOPHILS 0.3 % (0-7); HEMATOCRIT 25.9 % (42.0-54.0); HEMOGLOBIN 8.4 g/dL (13.5-17.5); IMMATURE GRANULOCYTES 10.2 % (0-5); LYMPHOCYTES 2.9 % (15-50); MCH 30.3 pg (26.0-34.0); MCHC 32.4 g/dL (31.0-37.0); MCV 93.5 fL (80.0-100.0); MEAN PLATELET VOLUME 10.8 fL (7.4-10.4); MONOCYTES 7.5 % (2-11); NEUTROPHILS 78.7 % (40-80); PLATELET COUNT 384 10x3/uL (130-400); RBC 2.77 10x6/uL (4.20-6.10); RDW 16.3 % (11.5-14.5); WBC 28.9 10x3/uL (4.8-10.8)
[2017-09-13 04:55] LABS: ALBUMIN 2.8 g/dL (3.4-5.0); ANION GAP 19.5 mmol/L (8-16); BILIRUBIN - DIRECT 1.55 mg/dL (0.00-0.30); BILIRUBIN - INDIRECT 0.48 mg/dL (0.00-1.00); BILIRUBIN - TOTAL 2.03 mg/dL (0.2-1.3); CALCIUM 8.8 mg/dL (8.5-10.1); CARBON DIOXIDE 26.3 mmol/L (21.0-32.0); CREATININE - SERUM 4.2 mg/dL (0.6-1.3); PHOSPHOROUS 7.4 mg/dL (2.5-4.9); PROTEIN - SERUM 6.8 g/dL (6.4-8.2); VANCOMYCIN - RANDOM 19.1 ug/mL (10.0-20.0)
[2017-09-13 04:56] LABS: POTASSIUM - SERUM 4.8 mmol/L (3.5-5.1)
[2017-09-14] VITALS (24 sets, daily range): BP systolic 96–157; BP diastolic 58–92
[2017-09-14 04:52] LABS: BASOPHILS 0.5 % (0-2); EOSINOPHILS 0.5 % (0-7); HEMATOCRIT 23.8 % (42.0-54.0); HEMOGLOBIN 7.6 g/dL (13.5-17.5); IMMATURE GRANULOCYTES 11.5 % (0-5); LYMPHOCYTES 3.2 % (15-50); MCH 29.8 pg (26.0-34.0); MCHC 31.9 g/dL (31.0-37.0); MCV 93.3 fL (80.0-100.0); MEAN PLATELET VOLUME 10.3 fL (7.4-10.4); MONOCYTES 7.1 % (2-11); NEUTROPHILS 77.2 % (40-80); PLATELET COUNT 326 10x3/uL (130-400); RBC 2.55 10x6/uL (4.20-6.10); RDW 16.6 % (11.5-14.5)
[2017-09-14 05:08] LABS: ANION GAP 18.4 mmol/L (8-16); CALCIUM 8.3 mg/dL (8.5-10.1); CARBON DIOXIDE 25.9 mmol/L (21.0-32.0); MAGNESIUM - SERUM 2.8 mg/dL (1.8-2.4); POTASSIUM - SERUM 4.3 mmol/L (3.5-5.1); VANCOMYCIN - RANDOM 13.6 ug/mL (10.0-20.0)
[2017-09-15] VITALS (22 sets, daily range): BP systolic 103–150; BP diastolic 62–83
[2017-09-15 05:10] LABS: BASOPHILS 0.4 % (0-2); EOSINOPHILS 0.6 % (0-7); HEMATOCRIT 29.7 % (42.0-54.0); HEMOGLOBIN 9.8 g/dL (13.5-17.5); IMMATURE GRANULOCYTES 10.1 % (0-5); LYMPHOCYTES 3.6 % (15-50); MCV 90.8 fL (80.0-100.0); MEAN PLATELET VOLUME 10.7 fL (7.4-10.4); MONOCYTES 6.6 % (2-11); NEUTROPHILS 78.7 % (40-80); PLATELET COUNT 299 10x3/uL (130-400); RBC 3.27 10x6/uL (4.20-6.10); RDW 17.4 % (11.5-14.5); WBC 23.6 10x3/uL (4.8-10.8)
[2017-09-15 05:22] LABS: ANION GAP 16.6 mmol/L (8-16); CALCIUM 8.5 mg/dL (8.5-10.1); CREATININE - SERUM 3.9 mg/dL (0.6-1.3); MAGNESIUM - SERUM 2.7 mg/dL (1.8-2.4); PHOSPHOROUS 5.6 mg/dL (2.5-4.9); POTASSIUM - SERUM 3.6 mmol/L (3.5-5.1); VANCOMYCIN - RANDOM 22.5 ug/mL (10.0-20.0)
[2017-09-16] VITALS (24 sets, daily range): BP systolic 101–149; BP diastolic 61–95
[2017-09-16 05:35] LABS: BASOPHILS 0.2 % (0-2); EOSINOPHILS 0.6 % (0-7); HEMATOCRIT 29.8 % (42.0-54.0); HEMOGLOBIN 9.6 g/dL (13.5-17.5); IMMATURE GRANULOCYTES 7.6 % (0-5); LYMPHOCYTES 2.3 % (15-50); MCH 29.5 pg (26.0-34.0); MCHC 32.2 g/dL (31.0-37.0); MCV 91.7 fL (80.0-100.0); MEAN PLATELET VOLUME 10.6 fL (7.4-10.4); MONOCYTES 5.9 % (2-11); NEUTROPHILS 83.4 % (40-80); PLATELET COUNT 300 10x3/uL (130-400); RBC 3.25 10x6/uL (4.20-6.10); RDW 17.2 % (11.5-14.5); WBC 20.7 10x3/uL (4.8-10.8)
[2017-09-16 05:53] LABS: ANION GAP 18.5 mmol/L (8-16); CALCIUM 8.6 mg/dL (8.5-10.1); CARBON DIOXIDE 23.2 mmol/L (21.0-32.0); MAGNESIUM - SERUM 2.7 mg/dL (1.8-2.4); POTASSIUM - SERUM 3.7 mmol/L (3.5-5.1)
[2017-09-16 05:54] LABS: CREATININE - SERUM 5.4 mg/dL (0.6-1.3); PHOSPHOROUS 7.4 mg/dL (2.5-4.9)
[2017-09-17] VITALS (24 sets, daily range): BP systolic 102–150; BP diastolic 71–90
[2017-09-17 05:33] LABS: BASOPHILS 0.2 % (0-2); EOSINOPHILS 0.6 % (0-7); HEMATOCRIT 29.4 % (42.0-54.0); HEMOGLOBIN 9.5 g/dL (13.5-17.5); IMMATURE GRANULOCYTES 5.4 % (0-5); LYMPHOCYTES 2.7 % (15-50); MCH 29.4 pg (26.0-34.0); MCHC 32.3 g/dL (31.0-37.0); MEAN PLATELET VOLUME 10.1 fL (7.4-10.4); MONOCYTES 5.4 % (2-11); NEUTROPHILS 85.7 % (40-80); PLATELET COUNT 280 10x3/uL (130-400); RBC 3.23 10x6/uL (4.20-6.10); RDW 17.2 % (11.5-14.5); WBC 17.7 10x3/uL (4.8-10.8)
[2017-09-17 05:54] LABS: ANION GAP 16.3 mmol/L (8-16); CALCIUM 8.8 mg/dL (8.5-10.1); CARBON DIOXIDE 25.9 mmol/L (21.0-32.0); CREATININE - SERUM 4.8 mg/dL (0.6-1.3); MAGNESIUM - SERUM 2.6 mg/dL (1.8-2.4); PHOSPHOROUS 5.7 mg/dL (2.5-4.9); POTASSIUM - SERUM 3.2 mmol/L (3.5-5.1); VANCOMYCIN - RANDOM 15.3 ug/mL (10.0-20.0)
[2017-09-18] VITALS (24 sets, daily range): BP systolic 90–137; BP diastolic 56–83
[2017-09-18 04:57] LABS: HEMATOCRIT 28.5 % (42.0-54.0); HEMOGLOBIN 9.4 g/dL (13.5-17.5); MCH 29.3 pg (26.0-34.0); MCV 88.8 fL (80.0-100.0); MEAN PLATELET VOLUME 10.3 fL (7.4-10.4); PLATELET COUNT 281 10x3/uL (130-400); RBC 3.21 10x6/uL (4.20-6.10); RDW 16.6 % (11.5-14.5); WBC 22.7 10x3/uL (4.8-10.8)
[2017-09-18 05:08] LABS: ANION GAP 21.1 mmol/L (8-16); CALCIUM 8.6 mg/dL (8.5-10.1); CARBON DIOXIDE 21.5 mmol/L (21.0-32.0); CREATININE - SERUM 5.9 mg/dL (0.6-1.3); MAGNESIUM - SERUM 2.9 mg/dL (1.8-2.4); PHOSPHOROUS 5.4 mg/dL (2.5-4.9); POTASSIUM - SERUM 3.6 mmol/L (3.5-5.1)
[2017-09-18 05:23] LABS: BASOPHILS 1 % (0-2); LYMPHOCYTES 6 % (15-50); MONOCYTES 1 % (2-11); NEUTROPHILS 89 % (40-80); PLATELET ESTIMATE NORMAL
[2017-09-19] VITALS (24 sets, daily range): BP systolic 103–158; BP diastolic 71–89
[2017-09-20] VITALS (23 sets, daily range): BP systolic 95–151; BP diastolic 54–96
[2017-09-20 05:04] LABS: BASOPHILS 0.1 % (0-2); EOSINOPHILS 0.6 % (0-7); HEMATOCRIT 27.4 % (42.0-54.0); HEMOGLOBIN 9.2 g/dL (13.5-17.5); IMMATURE GRANULOCYTES 0.6 % (0-5); LYMPHOCYTES 3.6 % (15-50); MCH 29.4 pg (26.0-34.0); MCHC 33.6 g/dL (31.0-37.0); MCV 87.5 fL (80.0-100.0); MEAN PLATELET VOLUME 10.3 fL (7.4-10.4); MONOCYTES 4.6 % (2-11); NEUTROPHILS 90.5 % (40-80); PLATELET COUNT 275 10x3/uL (130-400); RBC 3.13 10x6/uL (4.20-6.10); RDW 16.3 % (11.5-14.5); WBC 17.5 10x3/uL (4.8-10.8)
[2017-09-20 05:28] LABS: ALBUMIN 2.3 g/dL (3.4-5.0); ANION GAP 21.6 mmol/L (8-16); BILIRUBIN - TOTAL 3.16 mg/dL (0.2-1.3); CALCIUM 8.4 mg/dL (8.5-10.1); CARBON DIOXIDE 19.7 mmol/L (21.0-32.0); CREATININE - SERUM 5.8 mg/dL (0.6-1.3); PHOSPHOROUS 5.1 mg/dL (2.5-4.9); POTASSIUM - SERUM 3.3 mmol/L (3.5-5.1); PROTEIN - SERUM 7.1 g/dL (6.4-8.2)
[2017-09-21] VITALS (22 sets, daily range): BP systolic 105–159; BP diastolic 60–91
[2017-09-21 04:20] LABS: BASOPHILS 0.1 % (0-2); EOSINOPHILS 0.4 % (0-7); HEMATOCRIT 27.6 % (42.0-54.0); HEMOGLOBIN 9.1 g/dL (13.5-17.5); IMMATURE GRANULOCYTES 0.4 % (0-5); LYMPHOCYTES 4.6 % (15-50); MCH 29.3 pg (26.0-34.0); MCV 88.7 fL (80.0-100.0); MEAN PLATELET VOLUME 9.7 fL (7.4-10.4); MONOCYTES 3.3 % (2-11); NEUTROPHILS 91.2 % (40-80); PLATELET COUNT 230 10x3/uL (130-400); RBC 3.11 10x6/uL (4.20-6.10); RDW 16.6 % (11.5-14.5); WBC 14.7 10x3/uL (4.8-10.8)
[2017-09-21 04:42] LABS: ALBUMIN 2.1 g/dL (3.4-5.0); ANION GAP 16.7 mmol/L (8-16); BILIRUBIN - TOTAL 2.9 mg/dL (0.2-1.3); CALCIUM 8.5 mg/dL (8.5-10.1); CARBON DIOXIDE 23.5 mmol/L (21.0-32.0); CREATININE - SERUM 4.6 mg/dL (0.6-1.3); MAGNESIUM - SERUM 2.7 mg/dL (1.8-2.4); PHOSPHOROUS 4.9 mg/dL (2.5-4.9); POTASSIUM - SERUM 3.2 mmol/L (3.5-5.1); PROTEIN - SERUM 6.8 g/dL (6.4-8.2); VANCOMYCIN - RANDOM 18.4 ug/mL (10.0-20.0)
[2017-09-22] VITALS (24 sets, daily range): BP systolic 96–158; BP diastolic 54–85
[2017-09-22 05:09] LABS: BASOPHILS 0.1 % (0-2); EOSINOPHILS 0.4 % (0-7); HEMATOCRIT 23.8 % (42.0-54.0); HEMOGLOBIN 7.9 g/dL (13.5-17.5); IMMATURE GRANULOCYTES 0.4 % (0-5); LYMPHOCYTES 4.5 % (15-50); MCH 29.4 pg (26.0-34.0); MCHC 33.2 g/dL (31.0-37.0); MCV 88.5 fL (80.0-100.0); MEAN PLATELET VOLUME 9.5 fL (7.4-10.4); MONOCYTES 3.7 % (2-11); NEUTROPHILS 90.9 % (40-80); RBC 2.69 10x6/uL (4.20-6.10); RDW 16.3 % (11.5-14.5); WBC 13.2 10x3/uL (4.8-10.8)
[2017-09-22 05:25] LABS: PLATELET COUNT 174 10x3/uL (130-400)
[2017-09-22 05:39] LABS: ANION GAP 19.3 mmol/L (8-16); CALCIUM 8.6 mg/dL (8.5-10.1); CARBON DIOXIDE 18.9 mmol/L (21.0-32.0); MAGNESIUM - SERUM 2.8 mg/dL (1.8-2.4); POTASSIUM - SERUM 3.2 mmol/L (3.5-5.1); PROTEIN - SERUM 6.7 g/dL (6.4-8.2)
[2017-09-22 05:40] LABS: CREATININE - SERUM 5.9 mg/dL (0.6-1.3)
[2017-09-22 18:06] LABS: AEROBE ID Final report (()); RESULT 1 Streptococcus mitis (())
[2017-09-23] VITALS (29 sets, daily range): BP systolic 91–149; BP diastolic 54–86
[2017-09-23 04:17] LABS: BASOPHILS 0.1 % (0-2); EOSINOPHILS 0.2 % (0-7); HEMATOCRIT 23.7 % (42.0-54.0); HEMOGLOBIN 7.8 g/dL (13.5-17.5); IMMATURE GRANULOCYTES 0.7 % (0-5); LYMPHOCYTES 6.3 % (15-50); MCH 29.2 pg (26.0-34.0); MCHC 32.9 g/dL (31.0-37.0); MCV 88.8 fL (80.0-100.0); MONOCYTES 5.8 % (2-11); NEUTROPHILS 86.9 % (40-80); PLATELET COUNT 169 10x3/uL (130-400); RBC 2.67 10x6/uL (4.20-6.10); RDW 16.6 % (11.5-14.5)
[2017-09-23 04:26] LABS: WBC 9.7 10x3/uL (4.8-10.8)
[2017-09-23 04:45] LABS: APTT 37.4 SECONDS (22.8-39.4); INR 1.28 (0.85-1.17); PROTIME 15.9 SECONDS (11.6-15.0)
[2017-09-23 04:46] LABS: ALBUMIN 1.9 g/dL (3.4-5.0); BILIRUBIN - TOTAL 3.65 mg/dL (0.2-1.3); CALCIUM 8.1 mg/dL (8.5-10.1); CARBON DIOXIDE 16.6 mmol/L (21.0-32.0); CREATININE - SERUM 6.5 mg/dL (0.6-1.3); MAGNESIUM - SERUM 2.9 mg/dL (1.8-2.4); PHOSPHOROUS 4.9 mg/dL (2.5-4.9); POTASSIUM - SERUM 3.6 mmol/L (3.5-5.1); PRE-ALBUMIN 11.6 mg/dL (18.0-35.7); PROTEIN - SERUM 6.9 g/dL (6.4-8.2)
[2017-09-23 08:09] LABS: FUNGUS MYCOLOGY CULTURE Final report (())
[2017-09-23 12:00] LABS: PROTEIN - BODY FLUID 3.3 G/DL
[2017-09-23 13:53] LABS: MACROPHAGES BF 1 %; NEUT - BF 98 %
[2017-09-24] VITALS (24 sets, daily range): BP systolic 92–142; BP diastolic 47–94
[2017-09-24 04:27] LABS: BASOPHILS 0 % (0-2); EOSINOPHILS 0.4 % (0-7); HEMATOCRIT 24.2 % (42.0-54.0); HEMOGLOBIN 8.1 g/dL (13.5-17.5); IMMATURE GRANULOCYTES 0.3 % (0-5); LYMPHOCYTES 5.4 % (15-50); MCH 29.1 pg (26.0-34.0); MCHC 33.5 g/dL (31.0-37.0); MCV 87.1 fL (80.0-100.0); MEAN PLATELET VOLUME 9.5 fL (7.4-10.4); MONOCYTES 5.9 % (2-11); RBC 2.78 10x6/uL (4.20-6.10); RDW 16.1 % (11.5-14.5); WBC 7.4 10x3/uL (4.8-10.8)
[2017-09-24 04:33] LABS: PLATELET COUNT 126 10x3/uL (130-400)
[2017-09-24 04:52] LABS: ALBUMIN 1.9 g/dL (3.4-5.0); ANION GAP 18.9 mmol/L (8-16); BILIRUBIN - TOTAL 3.63 mg/dL (0.2-1.3); CALCIUM 8.3 mg/dL (8.5-10.1); CARBON DIOXIDE 22.4 mmol/L (21.0-32.0); CREATININE - SERUM 4.7 mg/dL (0.6-1.3); MAGNESIUM - SERUM 2.7 mg/dL (1.8-2.4); PHOSPHOROUS 3.8 mg/dL (2.5-4.9); POTASSIUM - SERUM 3.3 mmol/L (3.5-5.1); PROTEIN - SERUM 6.8 g/dL (6.4-8.2)
[2017-09-24 08:21] LABS: FUNGUS MYCOLOGY CULTURE Final report (())
[2017-09-24 20:08] LABS: AFB SPECIMEN PROCESSING Concentration (())
[2017-09-24 20:08] LABS: AFB SPECIMEN PROCESSING Concentration (())
[2017-09-25] VITALS (24 sets, daily range): BP systolic 77–155; BP diastolic 50–84
[2017-09-25 03:52] LABS: BASOPHILS 0 % (0-2); EOSINOPHILS 0.6 % (0-7); HEMATOCRIT 24.3 % (42.0-54.0); HEMOGLOBIN 8.1 g/dL (13.5-17.5); IMMATURE GRANULOCYTES 0.6 % (0-5); LYMPHOCYTES 5.7 % (15-50); MCH 29.1 pg (26.0-34.0); MCHC 33.3 g/dL (31.0-37.0); MCV 87.4 fL (80.0-100.0); MEAN PLATELET VOLUME 9.8 fL (7.4-10.4); NEUTROPHILS 85.1 % (40-80); PLATELET COUNT 115 10x3/uL (130-400); RBC 2.78 10x6/uL (4.20-6.10); RDW 15.9 % (11.5-14.5); WBC 6.9 10x3/uL (4.8-10.8)
[2017-09-25 04:05] LABS: BILIRUBIN - DIRECT 2.84 mg/dL (0.00-0.30); BILIRUBIN - TOTAL 3.43 mg/dL (0.2-1.3); CALCIUM 8.6 mg/dL (8.5-10.1); CARBON DIOXIDE 21.8 mmol/L (21.0-32.0)
[2017-09-25 04:09] LABS: CREATININE - SERUM 5.9 mg/dL (0.6-1.3); POTASSIUM - SERUM 3.8 mmol/L (3.5-5.1)
[2017-09-25 11:19] LABS: FUNGUS STAIN Final report (())
[2017-09-25 11:19] LABS: FUNGUS STAIN Final report (())
[2017-09-26] VITALS (23 sets, daily range): BP systolic 95–142; BP diastolic 53–72
[2017-09-26 04:29] LABS: BASOPHILS 0.2 % (0-2); EOSINOPHILS 0.5 % (0-7); HEMATOCRIT 23.1 % (42.0-54.0); HEMOGLOBIN 7.6 g/dL (13.5-17.5); IMMATURE GRANULOCYTES 0.6 % (0-5); MCHC 32.9 g/dL (31.0-37.0); MCV 88.2 fL (80.0-100.0); MEAN PLATELET VOLUME 10.4 fL (7.4-10.4); MONOCYTES 9.4 % (2-11); NEUTROPHILS 84.3 % (40-80); PLATELET COUNT 104 10x3/uL (130-400); RBC 2.62 10x6/uL (4.20-6.10); RDW 16.1 % (11.5-14.5); WBC 6.4 10x3/uL (4.8-10.8)
[2017-09-26 04:48] LABS: ANION GAP 18.7 mmol/L (8-16); CALCIUM 8.3 mg/dL (8.5-10.1); CARBON DIOXIDE 23.9 mmol/L (21.0-32.0); MAGNESIUM - SERUM 2.5 mg/dL (1.8-2.4); POTASSIUM - SERUM 3.6 mmol/L (3.5-5.1)
[2017-09-26 04:55] LABS: CREATININE - SERUM 4.4 mg/dL (0.6-1.3)
[2017-09-26 06:13] LABS: FUNGUS MYCOLOGY CULTURE Final report (())
[2017-09-27] VITALS (23 sets, daily range): BP systolic 74–144; BP diastolic 43–95
[2017-09-27 05:18] LABS: BASOPHILS 0 % (0-2); EOSINOPHILS 1.2 % (0-7); IMMATURE GRANULOCYTES 0.5 % (0-5); LYMPHOCYTES 8.3 % (15-50); MCH 28.7 pg (26.0-34.0); MCHC 32.2 g/dL (31.0-37.0); MCV 89.1 fL (80.0-100.0); MEAN PLATELET VOLUME 10.8 fL (7.4-10.4); MONOCYTES 11.9 % (2-11); NEUTROPHILS 78.1 % (40-80); PLATELET COUNT 97 10x3/uL (130-400); RBC 2.58 10x6/uL (4.20-6.10); RDW 16.2 % (11.5-14.5); WBC 5.6 10x3/uL (4.8-10.8)
[2017-09-27 05:19] LABS: HEMOGLOBIN 7.4 g/dL (13.5-17.5)
[2017-09-27 05:27] LABS: ANION GAP 20.1 mmol/L (8-16); CALCIUM 8.6 mg/dL (8.5-10.1); MAGNESIUM - SERUM 2.6 mg/dL (1.8-2.4); POTASSIUM - SERUM 4.1 mmol/L (3.5-5.1)
[2017-09-27 05:30] LABS: CREATININE - SERUM 5.8 mg/dL (0.6-1.3)
[2017-09-28] VITALS (25 sets, daily range): BP systolic 86–150; BP diastolic 47–103
[2017-09-28 04:53] LABS: BASOPHILS 0 % (0-2); EOSINOPHILS 2.7 % (0-7); HEMATOCRIT 23.4 % (42.0-54.0); IMMATURE GRANULOCYTES 0.5 % (0-5); LYMPHOCYTES 8.6 % (15-50); MCH 28.7 pg (26.0-34.0); MCHC 31.6 g/dL (31.0-37.0); MCV 90.7 fL (80.0-100.0); MEAN PLATELET VOLUME 10.5 fL (7.4-10.4); MONOCYTES 7.5 % (2-11); NEUTROPHILS 80.7 % (40-80); PLATELET COUNT 89 10x3/uL (130-400); RBC 2.58 10x6/uL (4.20-6.10); RDW 16.4 % (11.5-14.5); WBC 5.5 10x3/uL (4.8-10.8)
[2017-09-28 04:54] LABS: HEMOGLOBIN 7.4 g/dL (13.5-17.5)
[2017-09-28 05:07] LABS: ANION GAP 15.1 mmol/L (8-16); CALCIUM 8.6 mg/dL (8.5-10.1); CARBON DIOXIDE 26.3 mmol/L (21.0-32.0); MAGNESIUM - SERUM 2.6 mg/dL (1.8-2.4)
[2017-09-28 05:21] LABS: CREATININE - SERUM 4.1 mg/dL (0.6-1.3); POTASSIUM - SERUM 3.4 mmol/L (3.5-5.1)
[2017-09-29] VITALS (75 sets, daily range): BP systolic 51–142; BP diastolic 30–93
[2017-09-29 05:09] LABS: BASOPHILS 0.2 % (0-2); EOSINOPHILS 1.6 % (0-7); HEMOGLOBIN 8.8 g/dL (13.5-17.5); IMMATURE GRANULOCYTES 0.7 % (0-5); LYMPHOCYTES 6.4 % (15-50); MCH 28.8 pg (26.0-34.0); MCHC 32.6 g/dL (31.0-37.0); MEAN PLATELET VOLUME 9.7 fL (7.4-10.4); MONOCYTES 8.2 % (2-11); NEUTROPHILS 82.9 % (40-80); PLATELET COUNT 82 10x3/uL (130-400); RBC 3.06 10x6/uL (4.20-6.10); RDW 16.6 % (11.5-14.5); WBC 5.6 10x3/uL (4.8-10.8)
[2017-09-29 05:14] LABS: MCV 88.2 fL (80.0-100.0)
[2017-09-29 05:25] LABS: ALBUMIN 1.8 g/dL (3.4-5.0); ANION GAP 19.5 mmol/L (8-16); BILIRUBIN - TOTAL 1.96 mg/dL (0.2-1.3); CALCIUM 8.3 mg/dL (8.5-10.1); CARBON DIOXIDE 21.3 mmol/L (21.0-32.0); MAGNESIUM - SERUM 2.6 mg/dL (1.8-2.4); POTASSIUM - SERUM 3.8 mmol/L (3.5-5.1); PROTEIN - SERUM 6.8 g/dL (6.4-8.2)
[2017-09-29 05:27] LABS: CREATININE - SERUM 5.3 mg/dL (0.6-1.3)
[2017-09-30] VITALS (98 sets, daily range): BP systolic 61–145; BP diastolic 38–100
[2017-09-30 04:50] LABS: BASOPHILS 0.1 % (0-2); EOSINOPHILS 2.9 % (0-7); HEMATOCRIT 26.2 % (42.0-54.0); HEMOGLOBIN 8.4 g/dL (13.5-17.5); IMMATURE GRANULOCYTES 0.6 % (0-5); LYMPHOCYTES 8.6 % (15-50); MCH 28.5 pg (26.0-34.0); MCHC 32.1 g/dL (31.0-37.0); MCV 88.8 fL (80.0-100.0); MEAN PLATELET VOLUME 10.8 fL (7.4-10.4); MONOCYTES 4.2 % (2-11); NEUTROPHILS 83.6 % (40-80); PLATELET COUNT 89 10x3/uL (130-400); RBC 2.95 10x6/uL (4.20-6.10); WBC 6.8 10x3/uL (4.8-10.8)
[2017-09-30 05:13] LABS: ALBUMIN 1.8 g/dL (3.4-5.0); ANION GAP 20.7 mmol/L (8-16); BILIRUBIN - TOTAL 1.66 mg/dL (0.2-1.3); CALCIUM 8.3 mg/dL (8.5-10.1); CARBON DIOXIDE 20.1 mmol/L (21.0-32.0); CREATININE - SERUM 5.8 mg/dL (0.6-1.3); MAGNESIUM - SERUM 2.8 mg/dL (1.8-2.4); PROTEIN - SERUM 6.7 g/dL (6.4-8.2)
[2017-09-30 05:15] LABS: POTASSIUM - SERUM 4.8 mmol/L (3.5-5.1)
[2017-09-30 12:10] LABS: FUNGUS CULTURE RESULT 1 Candida albicans (())
[2017-09-30 15:14] LABS: FUNGUS CULTURE RESULT 1 Candida tropicalis (()); FUNGUS MYCOLOGY CULTURE Final report (())
[2017-09-30 19:28] LABS: APPEARANCE HAZY (CLEAR); COLOR BROWN (YELLOW); SPECIFIC GRAVITY 1.015 (1.005-1.020)
[2017-09-30 19:29] LABS: BILIRUBIN NEGATIVE (NEGATIVE); GLUCOSE NEGATIVE (NEGATIVE); KETONE NEGATIVE (NEGATIVE); NITRITE NEGATIVE (NEGATIVE); PROTEIN 1+ mg/dL (NEGATIVE); UROBILINOGEN NORMAL (NORMAL)
[2017-09-30 19:30] LABS: BACTERIA MODERATE /hpf (NONE SEEN); RED CELLS - URINE 0-5 /hpf (0-5)
[2017-10-01] VITALS (77 sets, daily range): BP systolic 83–133; BP diastolic 54–86
[2017-10-01 04:50] LABS: BASOPHILS 0.1 % (0-2); EOSINOPHILS 0.8 % (0-7); HEMOGLOBIN 8.3 g/dL (13.5-17.5); IMMATURE GRANULOCYTES 0.8 % (0-5); LYMPHOCYTES 10.6 % (15-50); MCH 28.5 pg (26.0-34.0); MCHC 31.9 g/dL (31.0-37.0); MCV 89.3 fL (80.0-100.0); MEAN PLATELET VOLUME 10.6 fL (7.4-10.4); MONOCYTES 5.4 % (2-11); NEUTROPHILS 82.3 % (40-80); PLATELET COUNT 73 10x3/uL (130-400); RBC 2.91 10x6/uL (4.20-6.10); WBC 8.5 10x3/uL (4.8-10.8)
[2017-10-01 05:23] LABS: ALBUMIN 1.7 g/dL (3.4-5.0); ANION GAP 17.3 mmol/L (8-16); BILIRUBIN - TOTAL 1.7 mg/dL (0.2-1.3); CALCIUM 8.1 mg/dL (8.5-10.1); CARBON DIOXIDE 24.8 mmol/L (21.0-32.0); MAGNESIUM - SERUM 2.2 mg/dL (1.8-2.4); POTASSIUM - SERUM 4.1 mmol/L (3.5-5.1); PROTEIN - SERUM 6.6 g/dL (6.4-8.2)
[2017-10-01 05:25] LABS: CREATININE - SERUM 3.6 mg/dL (0.6-1.3); PHENYTOIN (DILANTIN) 37.7 ug/mL (10.0-20.0)
[2017-10-01 15:27] LABS: BASOPHILS 0.2 % (0-2); EOSINOPHILS 0.4 % (0-7); HEMATOCRIT 30.7 % (42.0-54.0); IMMATURE GRANULOCYTES 0.7 % (0-5); LYMPHOCYTES 7.9 % (15-50); MCHC 32.6 g/dL (31.0-37.0); MEAN PLATELET VOLUME 9.9 fL (7.4-10.4); MONOCYTES 4.5 % (2-11); NEUTROPHILS 86.3 % (40-80); RBC 3.33 10x6/uL (4.20-6.10); RDW 16.1 % (11.5-14.5); WBC 10.2 10x3/uL (4.8-10.8)
[2017-10-01 15:33] LABS: MCV 92.2 fL (80.0-100.0); PLATELET COUNT 93 10x3/uL (130-400)
[2017-10-01 15:35] LABS: ANION GAP 18.1 mmol/L (8-16); CALCIUM 7.5 mg/dL (8.5-10.1); CARBON DIOXIDE 21.9 mmol/L (21.0-32.0); CREATININE - SERUM 4.1 mg/dL (0.6-1.3)
[2017-10-02] VITALS (73 sets, daily range): BP systolic 63–134; BP diastolic 47–92
[2017-10-02 04:44] LABS: BASOPHILS 0.1 % (0-2); EOSINOPHILS 0.1 % (0-7); HEMATOCRIT 26.1 % (42.0-54.0); HEMOGLOBIN 8.6 g/dL (13.5-17.5); IMMATURE GRANULOCYTES 0.7 % (0-5); LYMPHOCYTES 8.3 % (15-50); MCH 30.1 pg (26.0-34.0); MCV 91.3 fL (80.0-100.0); MEAN PLATELET VOLUME 10.5 fL (7.4-10.4); MONOCYTES 5.2 % (2-11); NEUTROPHILS 85.6 % (40-80); PLATELET COUNT 84 10x3/uL (130-400); RBC 2.86 10x6/uL (4.20-6.10); RDW 16.4 % (11.5-14.5); WBC 9.1 10x3/uL (4.8-10.8)
[2017-10-02 05:02] LABS: ALBUMIN 1.5 g/dL (3.4-5.0); ANION GAP 22.1 mmol/L (8-16); BILIRUBIN - TOTAL 1.42 mg/dL (0.2-1.3); CARBON DIOXIDE 17.2 mmol/L (21.0-32.0); CREATININE - SERUM 4.1 mg/dL (0.6-1.3); GENTAMICIN - RANDOM 6.7 ug/mL (0.5-2.0); MAGNESIUM - SERUM 2.3 mg/dL (1.8-2.4); POTASSIUM - SERUM 5.3 mmol/L (3.5-5.1); PROTEIN - SERUM 5.6 g/dL (6.4-8.2)
[2017-10-03] VITALS (92 sets, daily range): BP systolic 88–148; BP diastolic 39–84; Ht 185.4 cm; Wt 70.5 kg
[2017-10-03 04:50] LABS: BASOPHILS 0.1 % (0-2); HEMATOCRIT 25.2 % (42.0-54.0); IMMATURE GRANULOCYTES 0.7 % (0-5); LYMPHOCYTES 6.1 % (15-50); MCH 29.3 pg (26.0-34.0); MCHC 31.7 g/dL (31.0-37.0); MCV 92.3 fL (80.0-100.0); MEAN PLATELET VOLUME 10.1 fL (7.4-10.4); MONOCYTES 2.9 % (2-11); NEUTROPHILS 89.2 % (40-80); PLATELET COUNT 82 10x3/uL (130-400); RBC 2.73 10x6/uL (4.20-6.10); RDW 16.9 % (11.5-14.5); WBC 8.3 10x3/uL (4.8-10.8)
[2017-10-03 05:06] LABS: ALBUMIN 1.6 g/dL (3.4-5.0); BILIRUBIN - TOTAL 1.4 mg/dL (0.2-1.3); CALCIUM 8.1 mg/dL (8.5-10.1); CREATININE - SERUM 4.4 mg/dL (0.6-1.3); MAGNESIUM - SERUM 2.4 mg/dL (1.8-2.4); PROTEIN - SERUM 5.9 g/dL (6.4-8.2)
[2017-10-03 05:09] LABS: ANION GAP 16.1 mmol/L (8-16); CARBON DIOXIDE 24.4 mmol/L (21.0-32.0); POTASSIUM - SERUM 4.5 mmol/L (3.5-5.1)
[2017-10-04] VITALS (40 sets, daily range): BP systolic 96–146; BP diastolic 52–91
[2017-10-04 04:51] LABS: BASOPHILS 0 % (0-2); EOSINOPHILS 1.3 % (0-7); HEMATOCRIT 23.4 % (42.0-54.0); IMMATURE GRANULOCYTES 0.6 % (0-5); LYMPHOCYTES 6.2 % (15-50); MCH 29.8 pg (26.0-34.0); MCHC 31.6 g/dL (31.0-37.0); MEAN PLATELET VOLUME 10.4 fL (7.4-10.4); MONOCYTES 3.4 % (2-11); NEUTROPHILS 88.5 % (40-80); RBC 2.48 10x6/uL (4.20-6.10); RDW 17.4 % (11.5-14.5)
[2017-10-04 04:58] LABS: WBC 5.3 10x3/uL (4.8-10.8)
[2017-10-04 04:59] LABS: HEMOGLOBIN 7.4 g/dL (13.5-17.5); MCV 94.4 fL (80.0-100.0); PLATELET COUNT 63 10x3/uL (130-400)
[2017-10-04 05:07] LABS: ALBUMIN 1.6 g/dL (3.4-5.0); ANION GAP 16.8 mmol/L (8-16); BILIRUBIN - TOTAL 1.32 mg/dL (0.2-1.3); CALCIUM 7.8 mg/dL (8.5-10.1); CARBON DIOXIDE 23.6 mmol/L (21.0-32.0); CREATININE - SERUM 4.9 mg/dL (0.6-1.3); GENTAMICIN - RANDOM 2.4 ug/mL (0.5-2.0); MAGNESIUM - SERUM 2.8 mg/dL (1.8-2.4); POTASSIUM - SERUM 4.4 mmol/L (3.5-5.1)
[2017-10-05] VITALS (24 sets, daily range): BP systolic 92–146; BP diastolic 57–82
[2017-10-05 05:38] LABS: BASOPHILS 0.2 % (0-2); EOSINOPHILS 0.6 % (0-7); HEMATOCRIT 24.5 % (42.0-54.0); HEMOGLOBIN 7.9 g/dL (13.5-17.5); IMMATURE GRANULOCYTES 0.6 % (0-5); LYMPHOCYTES 10.5 % (15-50); MCH 29.9 pg (26.0-34.0); MCHC 32.2 g/dL (31.0-37.0); MCV 92.8 fL (80.0-100.0); MEAN PLATELET VOLUME 10.4 fL (7.4-10.4); MONOCYTES 3.8 % (2-11); NEUTROPHILS 84.3 % (40-80); PLATELET COUNT 48 10x3/uL (130-400); RBC 2.64 10x6/uL (4.20-6.10); RDW 17.2 % (11.5-14.5); WBC 5.3 10x3/uL (4.8-10.8)
[2017-10-05 06:28] LABS: ALBUMIN 1.4 g/dL (3.4-5.0); BILIRUBIN - TOTAL 1.4 mg/dL (0.2-1.3); CALCIUM 7.4 mg/dL (8.5-10.1); CARBON DIOXIDE 23.5 mmol/L (21.0-32.0); MAGNESIUM - SERUM 2.1 mg/dL (1.8-2.4); PROTEIN - SERUM 5.8 g/dL (6.4-8.2)
[2017-10-05 06:29] LABS: ANION GAP 15.1 mmol/L (8-16); CREATININE - SERUM 3.3 mg/dL (0.6-1.3); POTASSIUM - SERUM 3.6 mmol/L (3.5-5.1)
[2017-10-06] VITALS (36 sets, daily range): BP systolic 87–126; BP diastolic 51–96
[2017-10-06 05:30] LABS: BASOPHILS 0.2 % (0-2); EOSINOPHILS 0.7 % (0-7); HEMATOCRIT 28.4 % (42.0-54.0); HEMOGLOBIN 9.2 g/dL (13.5-17.5); IMMATURE GRANULOCYTES 0.5 % (0-5); LYMPHOCYTES 11.8 % (15-50); MCH 29.9 pg (26.0-34.0); MCHC 32.4 g/dL (31.0-37.0); MCV 92.2 fL (80.0-100.0); NEUTROPHILS 81.8 % (40-80); RBC 3.08 10x6/uL (4.20-6.10); RDW 17.9 % (11.5-14.5); WBC 5.8 10x3/uL (4.8-10.8)
[2017-10-06 05:34] LABS: PLATELET COUNT 39 10x3/uL (130-400)
[2017-10-06 06:13] LABS: ALBUMIN 1.5 g/dL (3.4-5.0); ANION GAP 17.4 mmol/L (8-16); BILIRUBIN - TOTAL 1.7 mg/dL (0.2-1.3); CALCIUM 7.9 mg/dL (8.5-10.1); CARBON DIOXIDE 21.8 mmol/L (21.0-32.0); CREATININE - SERUM 4.5 mg/dL (0.6-1.3); MAGNESIUM - SERUM 2.5 mg/dL (1.8-2.4); PHOSPHOROUS 4.3 mg/dL (2.5-4.9); POTASSIUM - SERUM 4.2 mmol/L (3.5-5.1); PROTEIN - SERUM 6.1 g/dL (6.4-8.2)
[2017-10-07] VITALS (23 sets, daily range): BP systolic 95–130; BP diastolic 55–95
[2017-10-07 05:24] LABS: BASOPHILS 0 % (0-2); EOSINOPHILS 0.7 % (0-7); HEMATOCRIT 27.7 % (42.0-54.0); IMMATURE GRANULOCYTES 0.5 % (0-5); LYMPHOCYTES 10.9 % (15-50); MCH 29.8 pg (26.0-34.0); MCHC 32.5 g/dL (31.0-37.0); MCV 91.7 fL (80.0-100.0); MEAN PLATELET VOLUME 11.8 fL (7.4-10.4); MONOCYTES 4.3 % (2-11); NEUTROPHILS 83.6 % (40-80); RBC 3.02 10x6/uL (4.20-6.10); RDW 17.5 % (11.5-14.5)
[2017-10-07 05:29] LABS: PLATELET COUNT 36 10x3/uL (130-400)
[2017-10-07 05:46] LABS: ALBUMIN 1.4 g/dL (3.4-5.0); ANION GAP 16.9 mmol/L (8-16); BILIRUBIN - TOTAL 2.1 mg/dL (0.2-1.3); CALCIUM 7.8 mg/dL (8.5-10.1); CARBON DIOXIDE 21.3 mmol/L (21.0-32.0); CREATININE - SERUM 5.2 mg/dL (0.6-1.3); GENTAMICIN - RANDOM 1.3 ug/mL (0.5-2.0); MAGNESIUM - SERUM 2.5 mg/dL (1.8-2.4); PHOSPHOROUS 4.3 mg/dL (2.5-4.9); POTASSIUM - SERUM 4.2 mmol/L (3.5-5.1); PROTEIN - SERUM 6.2 g/dL (6.4-8.2)
[2017-10-07 20:09] LABS: APTT 41.7 SECONDS (22.8-39.4)
[2017-10-08] VITALS (24 sets, daily range): BP systolic 84–130; BP diastolic 42–86
[2017-10-08 05:03] LABS: BASOPHILS 0.2 % (0-2); EOSINOPHILS 0.8 % (0-7); HEMOGLOBIN 8.8 g/dL (13.5-17.5); IMMATURE GRANULOCYTES 0.2 % (0-5); LYMPHOCYTES 11.8 % (15-50); MCH 29.8 pg (26.0-34.0); MCHC 32.6 g/dL (31.0-37.0); MCV 91.5 fL (80.0-100.0); MEAN PLATELET VOLUME 11.7 fL (7.4-10.4); MONOCYTES 7.8 % (2-11); NEUTROPHILS 79.2 % (40-80); RBC 2.95 10x6/uL (4.20-6.10); RDW 17.1 % (11.5-14.5); WBC 5.3 10x3/uL (4.8-10.8)
[2017-10-08 05:14] LABS: PLATELET COUNT 34 10x3/uL (130-400)
[2017-10-08 05:25] LABS: ALBUMIN 1.4 g/dL (3.4-5.0); BILIRUBIN - TOTAL 1.8 mg/dL (0.2-1.3); CALCIUM 7.8 mg/dL (8.5-10.1); CARBON DIOXIDE 26.1 mmol/L (21.0-32.0); PROTEIN - SERUM 6.4 g/dL (6.4-8.2)
[2017-10-08 05:29] LABS: APTT 122.5 SECONDS (22.8-39.4)
[2017-10-08 05:33] LABS: ANION GAP 15.4 mmol/L (8-16); CREATININE - SERUM 3.4 mg/dL (0.6-1.3); PHOSPHOROUS 3.2 mg/dL (2.5-4.9); POTASSIUM - SERUM 3.5 mmol/L (3.5-5.1)
[2017-10-08 12:27] LABS: APTT 113.8 SECONDS (22.8-39.4)
[2017-10-08 16:31] LABS: APTT 106.5 SECONDS (22.8-39.4)
[2017-10-09] VITALS (24 sets, daily range): BP systolic 100–141; BP diastolic 52–76
[2017-10-09 04:17] LABS: BASOPHILS 0.2 % (0-2); EOSINOPHILS 1.3 % (0-7); HEMATOCRIT 27.2 % (42.0-54.0); HEMOGLOBIN 8.7 g/dL (13.5-17.5); IMMATURE GRANULOCYTES 0.7 % (0-5); LYMPHOCYTES 9.8 % (15-50); MCH 29.6 pg (26.0-34.0); MCV 92.5 fL (80.0-100.0); MEAN PLATELET VOLUME 10.2 fL (7.4-10.4); MONOCYTES 5.8 % (2-11); NEUTROPHILS 82.2 % (40-80); RBC 2.94 10x6/uL (4.20-6.10); RDW 17.2 % (11.5-14.5); WBC 4.5 10x3/uL (4.8-10.8)
[2017-10-09 04:18] LABS: PLATELET COUNT 34 10x3/uL (130-400)
[2017-10-09 04:51] LABS: GENTAMICIN - RANDOM 3.7 ug/mL (0.5-2.0); MAGNESIUM - SERUM 2.5 mg/dL (1.8-2.4)
[2017-10-09 04:54] LABS: PHOSPHOROUS 4.9 mg/dL (2.5-4.9)
[2017-10-09 07:59] LABS: BILIRUBIN - TOTAL 2.15 mg/dL (0.2-1.3); CALCIUM 8.1 mg/dL (8.5-10.1); CARBON DIOXIDE 22.3 mmol/L (21.0-32.0); PROTEIN - SERUM 6.9 g/dL (6.4-8.2)
[2017-10-09 08:00] LABS: ALBUMIN 1.9 g/dL (3.4-5.0); ANION GAP 22.1 mmol/L (8-16); CREATININE - SERUM 4.5 mg/dL (0.6-1.3); POTASSIUM - SERUM 4.4 mmol/L (3.5-5.1)
[2017-10-10] VITALS (24 sets, daily range): BP systolic 90–171; BP diastolic 60–108
[2017-10-10 04:08] LABS: BASOPHILS 0.2 % (0-2); EOSINOPHILS 0.8 % (0-7); HEMATOCRIT 26.6 % (42.0-54.0); HEMOGLOBIN 8.4 g/dL (13.5-17.5); IMMATURE GRANULOCYTES 0.6 % (0-5); LYMPHOCYTES 12.3 % (15-50); MCH 29.5 pg (26.0-34.0); MCHC 31.6 g/dL (31.0-37.0); MCV 93.3 fL (80.0-100.0); NEUTROPHILS 80.1 % (40-80); RBC 2.85 10x6/uL (4.20-6.10); RDW 16.9 % (11.5-14.5); WBC 4.9 10x3/uL (4.8-10.8)
[2017-10-10 04:11] LABS: PLATELET COUNT 52 10x3/uL (130-400)
[2017-10-10 04:27] LABS: MAGNESIUM - SERUM 2.2 mg/dL (1.8-2.4)
[2017-10-10 05:21] LABS: ALBUMIN 2.1 g/dL (3.4-5.0); BILIRUBIN - TOTAL 2.1 mg/dL (0.2-1.3); CALCIUM 8.6 mg/dL (8.5-10.1); CREATININE - SERUM 3.5 mg/dL (0.6-1.3); PROTEIN - SERUM 7.1 g/dL (6.4-8.2)
[2017-10-11] VITALS (24 sets, daily range): BP systolic 76–153; BP diastolic 52–109
[2017-10-11 04:07] LABS: BASOPHILS 0.4 % (0-2); EOSINOPHILS 1.6 % (0-7); HEMATOCRIT 26.2 % (42.0-54.0); HEMOGLOBIN 8.3 g/dL (13.5-17.5); IMMATURE GRANULOCYTES 1.2 % (0-5); LYMPHOCYTES 13.2 % (15-50); MCH 29.2 pg (26.0-34.0); MCHC 31.7 g/dL (31.0-37.0); MCV 92.3 fL (80.0-100.0); MEAN PLATELET VOLUME 11.7 fL (7.4-10.4); MONOCYTES 6.3 % (2-11); NEUTROPHILS 77.3 % (40-80); PLATELET COUNT 62 10x3/uL (130-400); RBC 2.84 10x6/uL (4.20-6.10); RDW 16.8 % (11.5-14.5); WBC 4.9 10x3/uL (4.8-10.8)
[2017-10-11 04:14] LABS: ANION GAP 21.6 mmol/L (8-16); CARBON DIOXIDE 23.6 mmol/L (21.0-32.0); CREATININE - SERUM 4.5 mg/dL (0.6-1.3); POTASSIUM - SERUM 4.2 mmol/L (3.5-5.1)
[2017-10-12] VITALS (26 sets, daily range): BP systolic 88–147; BP diastolic 51–90
[2017-10-12 03:41] LABS: BASOPHILS 0.2 % (0-2); EOSINOPHILS 0.3 % (0-7); HEMATOCRIT 23.7 % (42.0-54.0); IMMATURE GRANULOCYTES 0.5 % (0-5); LYMPHOCYTES 15.5 % (15-50); MCH 29.2 pg (26.0-34.0); MCHC 31.2 g/dL (31.0-37.0); MCV 93.7 fL (80.0-100.0); MONOCYTES 5.6 % (2-11); NEUTROPHILS 77.9 % (40-80); PLATELET COUNT 65 10x3/uL (130-400); RBC 2.53 10x6/uL (4.20-6.10); RDW 16.7 % (11.5-14.5); WBC 5.8 10x3/uL (4.8-10.8)
[2017-10-12 03:42] LABS: HEMOGLOBIN 7.4 g/dL (13.5-17.5)
[2017-10-12 04:07] LABS: BILIRUBIN - TOTAL 2.03 mg/dL (0.2-1.3); CALCIUM 8.3 mg/dL (8.5-10.1); CARBON DIOXIDE 23.3 mmol/L (21.0-32.0); MAGNESIUM - SERUM 2.3 mg/dL (1.8-2.4); PROTEIN - SERUM 7.4 g/dL (6.4-8.2)
[2017-10-12 04:09] LABS: ALBUMIN 2.7 g/dL (3.4-5.0); ANION GAP 18.2 mmol/L (8-16); CREATININE - SERUM 3.3 mg/dL (0.6-1.3); POTASSIUM - SERUM 3.5 mmol/L (3.5-5.1)
[2017-10-12 07:37] LABS: INR 2.7 (0.85-1.17)
[2017-10-12 08:20] LABS: APTT 86.8 SECONDS (22.8-39.4)
[2017-10-13] VITALS (26 sets, daily range): BP systolic 91–128; BP diastolic 47–84
[2017-10-13 04:44] LABS: BASOPHILS 0.4 % (0-2); EOSINOPHILS 1.2 % (0-7); HEMOGLOBIN 8.7 g/dL (13.5-17.5); IMMATURE GRANULOCYTES 1.1 % (0-5); LYMPHOCYTES 9.4 % (15-50); MCH 29.8 pg (26.0-34.0); MCHC 32.2 g/dL (31.0-37.0); MCV 92.5 fL (80.0-100.0); MEAN PLATELET VOLUME 10.7 fL (7.4-10.4); MONOCYTES 3.5 % (2-11); NEUTROPHILS 84.4 % (40-80); PLATELET COUNT 70 10x3/uL (130-400); RBC 2.92 10x6/uL (4.20-6.10); RDW 16.8 % (11.5-14.5); WBC 5.6 10x3/uL (4.8-10.8)
[2017-10-13 05:35] LABS: ALBUMIN 2.8 g/dL (3.4-5.0); ANION GAP 19.2 mmol/L (8-16); BILIRUBIN - TOTAL 2.23 mg/dL (0.2-1.3); CALCIUM 8.2 mg/dL (8.5-10.1); CARBON DIOXIDE 22.6 mmol/L (21.0-32.0); CREATININE - SERUM 4.4 mg/dL (0.6-1.3); POTASSIUM - SERUM 3.8 mmol/L (3.5-5.1); PRE-ALBUMIN 12.8 mg/dL (18.0-35.7); PROTEIN - SERUM 6.9 g/dL (6.4-8.2)
[2017-10-13 05:47] LABS: VANCOMYCIN - TROUGH 16.9 ug/mL (10.0-20.0)
[2017-10-14] VITALS (24 sets, daily range): BP systolic 84–134; BP diastolic 47–98
[2017-10-14 05:31] LABS: BASOPHILS 0.1 % (0-2); EOSINOPHILS 1.1 % (0-7); HEMOGLOBIN 8.9 g/dL (13.5-17.5); IMMATURE GRANULOCYTES 1.3 % (0-5); LYMPHOCYTES 8.5 % (15-50); MCH 29.7 pg (26.0-34.0); MCHC 31.8 g/dL (31.0-37.0); MCV 93.3 fL (80.0-100.0); MEAN PLATELET VOLUME 11.2 fL (7.4-10.4); MONOCYTES 3.2 % (2-11); NEUTROPHILS 85.8 % (40-80); PLATELET COUNT 73 10x3/uL (130-400); RDW 16.9 % (11.5-14.5)
[2017-10-14 05:32] LABS: WBC 7.4 10x3/uL (4.8-10.8)
[2017-10-14 05:51] LABS: ALBUMIN 2.9 g/dL (3.4-5.0); BILIRUBIN - TOTAL 2.15 mg/dL (0.2-1.3); CALCIUM 8.7 mg/dL (8.5-10.1); CARBON DIOXIDE 20.2 mmol/L (21.0-32.0); CREATININE - SERUM 5.3 mg/dL (0.6-1.3); POTASSIUM - SERUM 4.2 mmol/L (3.5-5.1); PROTEIN - SERUM 7.7 g/dL (6.4-8.2)
[2017-10-15] VITALS (54 sets, daily range): BP systolic 61–144; BP diastolic 23–95
[2017-10-15 05:45] LABS: BASOPHILS 0.3 % (0-2); EOSINOPHILS 0.9 % (0-7); HEMATOCRIT 28.4 % (42.0-54.0); IMMATURE GRANULOCYTES 1.1 % (0-5); LYMPHOCYTES 10.2 % (15-50); MCH 29.6 pg (26.0-34.0); MCHC 31.7 g/dL (31.0-37.0); MCV 93.4 fL (80.0-100.0); MEAN PLATELET VOLUME 10.6 fL (7.4-10.4); MONOCYTES 4.2 % (2-11); NEUTROPHILS 83.3 % (40-80); PLATELET COUNT 69 10x3/uL (130-400); RBC 3.04 10x6/uL (4.20-6.10); RDW 16.9 % (11.5-14.5)
[2017-10-15 08:46] LABS: INR 1.48 (0.85-1.17); PROTIME 17.4 SECONDS (11.6-15.0)
[2017-10-15 08:47] LABS: APTT 53.5 SECONDS (22.8-39.4)
[2017-10-15 08:57] LABS: ANION GAP 17.5 mmol/L (8-16); CALCIUM 8.1 mg/dL (8.5-10.1); CARBON DIOXIDE 24.1 mmol/L (21.0-32.0); POTASSIUM - SERUM 3.6 mmol/L (3.5-5.1)
[2017-10-15 08:58] LABS: CREATININE - SERUM 3.5 mg/dL (0.6-1.3)
[2017-10-16] VITALS (24 sets, daily range): BP systolic 73–120; BP diastolic 38–76
[2017-10-16 05:01] LABS: ANION GAP 17.5 mmol/L (8-16); CALCIUM 8.6 mg/dL (8.5-10.1); CARBON DIOXIDE 24.1 mmol/L (21.0-32.0); MAGNESIUM - SERUM 2.6 mg/dL (1.8-2.4)
[2017-10-16 05:06] LABS: CREATININE - SERUM 4.5 mg/dL (0.6-1.3); POTASSIUM - SERUM 4.6 mmol/L (3.5-5.1)
[2017-10-16 05:12] LABS: EOSINOPHILS 0.5 % (0-7); HEMATOCRIT 26.3 % (42.0-54.0); HEMOGLOBIN 8.4 g/dL (13.5-17.5); IMMATURE GRANULOCYTES 0.3 % (0-5); LYMPHOCYTES 11.9 % (15-50); MCH 29.5 pg (26.0-34.0); MCHC 31.9 g/dL (31.0-37.0); MCV 92.3 fL (80.0-100.0); MEAN PLATELET VOLUME 11.8 fL (7.4-10.4); MONOCYTES 5.2 % (2-11); NEUTROPHILS 81.1 % (40-80); PLATELET COUNT 61 10x3/uL (130-400); RBC 2.85 10x6/uL (4.20-6.10); RDW 17.2 % (11.5-14.5)
[2017-10-16 05:13] LABS: WBC 5.8 10x3/uL (4.8-10.8)
[2017-10-17] VITALS (77 sets, daily range): BP systolic 57–143; BP diastolic 31–139
[2017-10-17 04:48] LABS: BASOPHILS 0.2 % (0-2); EOSINOPHILS 0.8 % (0-7); HEMATOCRIT 29.8 % (42.0-54.0); HEMOGLOBIN 9.3 g/dL (13.5-17.5); IMMATURE GRANULOCYTES 0.7 % (0-5); LYMPHOCYTES 11.9 % (15-50); MCH 29.7 pg (26.0-34.0); MCHC 31.2 g/dL (31.0-37.0); MEAN PLATELET VOLUME 11.1 fL (7.4-10.4); MONOCYTES 6.2 % (2-11); NEUTROPHILS 80.2 % (40-80); RBC 3.13 10x6/uL (4.20-6.10); RDW 17.5 % (11.5-14.5)
[2017-10-17 04:54] LABS: MCV 95.2 fL (80.0-100.0); PLATELET COUNT 76 10x3/uL (130-400); WBC 8.6 10x3/uL (4.8-10.8)
[2017-10-17 05:08] LABS: ALBUMIN 3.3 g/dL (3.4-5.0); BILIRUBIN - DIRECT 0.99 mg/dL (0.00-0.30); BILIRUBIN - INDIRECT 0.56 mg/dL (0.00-1.00); BILIRUBIN - TOTAL 1.55 mg/dL (0.2-1.3); CALCIUM 8.4 mg/dL (8.5-10.1); CARBON DIOXIDE 28.2 mmol/L (21.0-32.0); MAGNESIUM - SERUM 2.5 mg/dL (1.8-2.4); POTASSIUM - SERUM 4.2 mmol/L (3.5-5.1); PROTEIN - SERUM 7.6 g/dL (6.4-8.2)
[2017-10-18] VITALS (53 sets, daily range): BP systolic 61–129; BP diastolic 24–79
[2017-10-18 05:43] LABS: BASOPHILS 0.3 % (0-2); EOSINOPHILS 0.5 % (0-7); HEMOGLOBIN 9.8 g/dL (13.5-17.5); IMMATURE GRANULOCYTES 0.8 % (0-5); LYMPHOCYTES 9.5 % (15-50); MCH 29.5 pg (26.0-34.0); MCHC 31.6 g/dL (31.0-37.0); MCV 93.4 fL (80.0-100.0); MEAN PLATELET VOLUME 11.4 fL (7.4-10.4); NEUTROPHILS 84.9 % (40-80); PLATELET COUNT 79 10x3/uL (130-400); RBC 3.32 10x6/uL (4.20-6.10); RDW 17.1 % (11.5-14.5); WBC 7.6 10x3/uL (4.8-10.8)
[2017-10-18 06:18] LABS: CALCIUM 8.9 mg/dL (8.5-10.1); CARBON DIOXIDE 23.6 mmol/L (21.0-32.0); CREATININE - SERUM 3.7 mg/dL (0.6-1.3); MAGNESIUM - SERUM 2.7 mg/dL (1.8-2.4); POTASSIUM - SERUM 4.6 mmol/L (3.5-5.1)
[2017-10-18 10:18] LABS: ACID FAST CULTURE Negative (())
[2017-10-18 10:18] LABS: ACID FAST CULTURE Negative (()); ACID FAST SMEAR Negative (())
[2017-10-18 15:21] LABS: ACID FAST CULTURE Negative (()); ACID FAST SMEAR Negative (())
[2017-10-19] VITALS (24 sets, daily range): BP systolic 75–126; BP diastolic 44–84
[2017-10-19 04:25] LABS: BASOPHILS 0.1 % (0-2); EOSINOPHILS 0 % (0-7); HEMOGLOBIN 8.6 g/dL (13.5-17.5); IMMATURE GRANULOCYTES 0.7 % (0-5); LYMPHOCYTES 10.6 % (15-50); MCH 29.5 pg (26.0-34.0); MCHC 31.9 g/dL (31.0-37.0); MCV 92.5 fL (80.0-100.0); MEAN PLATELET VOLUME 11.7 fL (7.4-10.4); MONOCYTES 4.1 % (2-11); NEUTROPHILS 84.5 % (40-80); PLATELET COUNT 78 10x3/uL (130-400); RBC 2.92 10x6/uL (4.20-6.10); RDW 16.9 % (11.5-14.5); WBC 8.5 10x3/uL (4.8-10.8)
[2017-10-19 04:40] LABS: ANION GAP 15.3 mmol/L (8-16); CARBON DIOXIDE 25.8 mmol/L (21.0-32.0); MAGNESIUM - SERUM 2.5 mg/dL (1.8-2.4); POTASSIUM - SERUM 4.1 mmol/L (3.5-5.1)
[2017-10-20] VITALS (43 sets, daily range): BP systolic 82–132; BP diastolic 46–92
[2017-10-20 05:06] LABS: BASOPHILS 0.1 % (0-2); EOSINOPHILS 0.4 % (0-7); HEMATOCRIT 26.1 % (42.0-54.0); HEMOGLOBIN 8.4 g/dL (13.5-17.5); IMMATURE GRANULOCYTES 0.9 % (0-5); LYMPHOCYTES 13.9 % (15-50); MCH 29.4 pg (26.0-34.0); MCHC 32.2 g/dL (31.0-37.0); MCV 91.3 fL (80.0-100.0); MEAN PLATELET VOLUME 10.9 fL (7.4-10.4); MONOCYTES 4.7 % (2-11); PLATELET COUNT 87 10x3/uL (130-400); RBC 2.86 10x6/uL (4.20-6.10); RDW 17.2 % (11.5-14.5); WBC 7.9 10x3/uL (4.8-10.8)
[2017-10-20 05:17] LABS: INR 1.55 (0.85-1.17); PROTIME 18.1 SECONDS (11.6-15.0)
[2017-10-20 05:18] LABS: APTT 49.8 SECONDS (22.8-39.4); CALCIUM 9.6 mg/dL (8.5-10.1); CARBON DIOXIDE 23.9 mmol/L (21.0-32.0); MAGNESIUM - SERUM 2.5 mg/dL (1.8-2.4)
[2017-10-20 05:19] LABS: POTASSIUM - SERUM 4.9 mmol/L (3.5-5.1)
[2017-10-21] VITALS (95 sets, daily range): BP systolic 81–139; BP diastolic 41–109
[2017-10-21 05:22] LABS: BASOPHILS 0.2 % (0-2); EOSINOPHILS 0.3 % (0-7); HEMATOCRIT 24.8 % (42.0-54.0); HEMOGLOBIN 7.9 g/dL (13.5-17.5); IMMATURE GRANULOCYTES 0.7 % (0-5); LYMPHOCYTES 16.4 % (15-50); MCH 29.7 pg (26.0-34.0); MCHC 31.9 g/dL (31.0-37.0); MCV 93.2 fL (80.0-100.0); MEAN PLATELET VOLUME 10.9 fL (7.4-10.4); MONOCYTES 7.2 % (2-11); NEUTROPHILS 75.2 % (40-80); PLATELET COUNT 88 10x3/uL (130-400); RBC 2.66 10x6/uL (4.20-6.10); RDW 17.9 % (11.5-14.5); WBC 8.7 10x3/uL (4.8-10.8)
[2017-10-21 05:34] LABS: ANION GAP 22.8 mmol/L (8-16); CARBON DIOXIDE 20.2 mmol/L (21.0-32.0)
[2017-10-21 05:35] LABS: CREATININE - SERUM 5.3 mg/dL (0.6-1.3)
[2017-10-21 07:53] LABS: ALBUMIN 3.3 g/dL (3.4-5.0); BILIRUBIN - DIRECT 0.98 mg/dL (0.00-0.30); BILIRUBIN - INDIRECT 0.74 mg/dL (0.00-1.00); BILIRUBIN - TOTAL 1.72 mg/dL (0.2-1.3); PROTEIN - SERUM 7.2 g/dL (6.4-8.2)
[2017-10-21 08:09] LABS: FUNGUS MYCOLOGY CULTURE Final report (())
[2017-10-22] VITALS (93 sets, daily range): BP systolic 71–143; BP diastolic 39–99
[2017-10-22 03:49] LABS: BASOPHILS 0.1 % (0-2); EOSINOPHILS 0.1 % (0-7); HEMATOCRIT 27.9 % (42.0-54.0); HEMOGLOBIN 8.8 g/dL (13.5-17.5); IMMATURE GRANULOCYTES 0.7 % (0-5); LYMPHOCYTES 6.7 % (15-50); MCH 29.3 pg (26.0-34.0); MCHC 31.5 g/dL (31.0-37.0); MONOCYTES 6.4 % (2-11); PLATELET COUNT 91 10x3/uL (130-400); RDW 18.1 % (11.5-14.5)
[2017-10-22 04:06] LABS: WBC 14.5 10x3/uL (4.8-10.8)
[2017-10-22 04:16] LABS: ANION GAP 18.1 mmol/L (8-16); CALCIUM 9.4 mg/dL (8.5-10.1); CARBON DIOXIDE 24.5 mmol/L (21.0-32.0); MAGNESIUM - SERUM 2.4 mg/dL (1.8-2.4)
[2017-10-22 04:28] LABS: CREATININE - SERUM 3.3 mg/dL (0.6-1.3); POTASSIUM - SERUM 4.6 mmol/L (3.5-5.1)
[2017-10-23] VITALS (95 sets, daily range): BP systolic 64–150; BP diastolic 45–97
[2017-10-23 04:14] LABS: BASOPHILS 0.1 % (0-2); EOSINOPHILS 0.1 % (0-7); HEMATOCRIT 27.7 % (42.0-54.0); HEMOGLOBIN 8.8 g/dL (13.5-17.5); IMMATURE GRANULOCYTES 0.5 % (0-5); MCH 29.2 pg (26.0-34.0); MCHC 31.8 g/dL (31.0-37.0); MEAN PLATELET VOLUME 10.4 fL (7.4-10.4); MONOCYTES 5.2 % (2-11); NEUTROPHILS 86.1 % (40-80); PLATELET COUNT 99 10x3/uL (130-400); RBC 3.01 10x6/uL (4.20-6.10); RDW 18.2 % (11.5-14.5); WBC 16.5 10x3/uL (4.8-10.8)
[2017-10-23 04:24] LABS: CALCIUM 9.7 mg/dL (8.5-10.1)
[2017-10-23 04:48] LABS: CREATININE - SERUM 4.6 mg/dL (0.6-1.3)
[2017-10-23 04:49] LABS: ANION GAP 20.3 mmol/L (8-16); POTASSIUM - SERUM 6.3 mmol/L (3.5-5.1)
[2017-10-24] VITALS (92 sets, daily range): BP systolic 74–117; BP diastolic 5–96
[2017-10-24 05:29] LABS: BASOPHILS 0.1 % (0-2); EOSINOPHILS 0.1 % (0-7); HEMATOCRIT 27.4 % (42.0-54.0); HEMOGLOBIN 8.7 g/dL (13.5-17.5); IMMATURE GRANULOCYTES 0.8 % (0-5); LYMPHOCYTES 8.4 % (15-50); MCH 29.5 pg (26.0-34.0); MCHC 31.8 g/dL (31.0-37.0); MCV 92.9 fL (80.0-100.0); MEAN PLATELET VOLUME 10.9 fL (7.4-10.4); MONOCYTES 5.5 % (2-11); NEUTROPHILS 85.1 % (40-80); PLATELET COUNT 86 10x3/uL (130-400); RBC 2.95 10x6/uL (4.20-6.10); RDW 18.9 % (11.5-14.5); WBC 15.4 10x3/uL (4.8-10.8)
[2017-10-24 06:00] LABS: ANION GAP 18.4 mmol/L (8-16); CALCIUM 9.7 mg/dL (8.5-10.1); CARBON DIOXIDE 25.6 mmol/L (21.0-32.0); MAGNESIUM - SERUM 2.7 mg/dL (1.8-2.4); PRE-ALBUMIN 12.6 mg/dL (18.0-35.7); THYROID STIMULATING HORMONE 10.4 uIU/mL (0.36-3.74)
[2017-10-25] VITALS (79 sets, daily range): BP systolic 58–128; BP diastolic 43–90
[2017-10-25 05:00] LABS: BASOPHILS 0.1 % (0-2); EOSINOPHILS 0.1 % (0-7); HEMATOCRIT 25.2 % (42.0-54.0); HEMOGLOBIN 8.1 g/dL (13.5-17.5); IMMATURE GRANULOCYTES 0.6 % (0-5); LYMPHOCYTES 6.1 % (15-50); MCH 29.7 pg (26.0-34.0); MCHC 32.1 g/dL (31.0-37.0); MCV 92.3 fL (80.0-100.0); MEAN PLATELET VOLUME 11.2 fL (7.4-10.4); MONOCYTES 2.4 % (2-11); NEUTROPHILS 90.7 % (40-80); PLATELET COUNT 91 10x3/uL (130-400); RBC 2.73 10x6/uL (4.20-6.10); RDW 18.8 % (11.5-14.5); WBC 15.7 10x3/uL (4.8-10.8)
[2017-10-25 05:09] LABS: CALCIUM 9.2 mg/dL (8.5-10.1); MAGNESIUM - SERUM 3.1 mg/dL (1.8-2.4)
[2017-10-25 05:10] LABS: CREATININE - SERUM 4.3 mg/dL (0.6-1.3)
[2017-10-25 05:11] LABS: ANION GAP 26.9 mmol/L (8-16); CARBON DIOXIDE 17.6 mmol/L (21.0-32.0); POTASSIUM - SERUM 6.5 mmol/L (3.5-5.1)
[2017-10-25 09:40] LABS: APTT 45.9 SECONDS (22.8-39.4); INR 1.48 (0.85-1.17); PROTIME 17.4 SECONDS (11.6-15.0)
[2017-10-26] VITALS (85 sets, daily range): BP systolic 78–144; BP diastolic 35–104
[2017-10-26 06:12] LABS: BASOPHILS 0.1 % (0-2); EOSINOPHILS 0 % (0-7); HEMATOCRIT 27.5 % (42.0-54.0); HEMOGLOBIN 8.7 g/dL (13.5-17.5); IMMATURE GRANULOCYTES 0.5 % (0-5); LYMPHOCYTES 7.3 % (15-50); MCH 29.9 pg (26.0-34.0); MCHC 31.6 g/dL (31.0-37.0); MEAN PLATELET VOLUME 10.5 fL (7.4-10.4); MONOCYTES 3.6 % (2-11); NEUTROPHILS 88.5 % (40-80); PLATELET COUNT 97 10x3/uL (130-400); RBC 2.91 10x6/uL (4.20-6.10); RDW 19.8 % (11.5-14.5); WBC 18.2 10x3/uL (4.8-10.8)
[2017-10-26 06:15] LABS: MCV 94.5 fL (80.0-100.0)
[2017-10-26 06:49] LABS: ANION GAP 27.8 mmol/L (8-16); CALCIUM 9.3 mg/dL (8.5-10.1); CARBON DIOXIDE 18.2 mmol/L (21.0-32.0); CREATININE - SERUM 4.4 mg/dL (0.6-1.3); MAGNESIUM - SERUM 3.2 mg/dL (1.8-2.4)
[2017-10-27] VITALS (61 sets, daily range): BP systolic 76–126; BP diastolic 31–84
[2017-10-27 05:00] LABS: BASOPHILS 0.1 % (0-2); EOSINOPHILS 0 % (0-7); HEMOGLOBIN 8.5 g/dL (13.5-17.5); IMMATURE GRANULOCYTES 0.6 % (0-5); LYMPHOCYTES 6.1 % (15-50); MCH 29.8 pg (26.0-34.0); MCHC 31.5 g/dL (31.0-37.0); MCV 94.7 fL (80.0-100.0); MONOCYTES 3.1 % (2-11); NEUTROPHILS 90.1 % (40-80); PLATELET COUNT 89 10x3/uL (130-400); RBC 2.85 10x6/uL (4.20-6.10)
[2017-10-27 06:10] LABS: ANION GAP 34.1 mmol/L (8-16); CALCIUM 9.1 mg/dL (8.5-10.1); CARBON DIOXIDE 15.2 mmol/L (21.0-32.0)
[2017-10-27 06:17] LABS: CREATININE - SERUM 5.9 mg/dL (0.6-1.3)
[2017-10-27 06:18] LABS: MAGNESIUM - SERUM 3.5 mg/dL (1.8-2.4); POTASSIUM - SERUM 7.3 mmol/L (3.5-5.1)
[2017-10-28] VITALS (90 sets, daily range): BP systolic 66–141; BP diastolic 21–96
[2017-10-28 10:24] LABS: ANION GAP 26.4 mmol/L (8-16); CALCIUM 8.6 mg/dL (8.5-10.1); CARBON DIOXIDE 18.6 mmol/L (21.0-32.0); CREATININE - SERUM 4.9 mg/dL (0.6-1.3); MAGNESIUM - SERUM 2.9 mg/dL (1.8-2.4)
[2017-10-28 10:26] LABS: PHOSPHOROUS 13.1 mg/dL (2.5-4.9)
[2017-10-28 15:07] LABS: APTT 34.7 SECONDS (22.8-39.4); INR 1.3 (0.85-1.17); PROTIME 15.8 SECONDS (11.6-15.0)
[2017-10-28 23:07] LABS: HEMATOCRIT 28.9 % (42.0-54.0); HEMOGLOBIN 9.4 g/dL (13.5-17.5)
[2017-10-29] VITALS (93 sets, daily range): BP systolic 52–162; BP diastolic 31–98
[2017-10-29 06:04] LABS: BASOPHILS 0.1 % (0-2); EOSINOPHILS 0 % (0-7); HEMATOCRIT 32.8 % (42.0-54.0); HEMOGLOBIN 11.1 g/dL (13.5-17.5); IMMATURE GRANULOCYTES 1.4 % (0-5); LYMPHOCYTES 4.6 % (15-50); MCH 30.4 pg (26.0-34.0); MCHC 33.8 g/dL (31.0-37.0); MCV 89.9 fL (80.0-100.0); MEAN PLATELET VOLUME 10.4 fL (7.4-10.4); NEUTROPHILS 90.9 % (40-80); PLATELET COUNT 86 10x3/uL (130-400); RBC 3.65 10x6/uL (4.20-6.10); RDW 15.6 % (11.5-14.5); WBC 16.6 10x3/uL (4.8-10.8)
[2017-10-29 06:18] LABS: ANION GAP 21.7 mmol/L (8-16); CALCIUM 8.4 mg/dL (8.5-10.1); CARBON DIOXIDE 19.7 mmol/L (21.0-32.0); CREATININE - SERUM 4.1 mg/dL (0.6-1.3); MAGNESIUM - SERUM 2.4 mg/dL (1.8-2.4)
[2017-10-29 06:22] LABS: POTASSIUM - SERUM 4.4 mmol/L (3.5-5.1)
[2017-10-29 06:35] LABS: INR 1.47 (0.85-1.17); PROTIME 17.3 SECONDS (11.6-15.0)
[2017-10-29 06:36] LABS: APTT 41.5 SECONDS (22.8-39.4)
[2017-10-30] VITALS (93 sets, daily range): BP systolic 60–165; BP diastolic 35–599
[2017-10-30 06:34] LABS: CALCIUM 8.4 mg/dL (8.5-10.1)
[2017-10-30 06:36] LABS: ANION GAP 25.4 mmol/L (8-16); CARBON DIOXIDE 14.7 mmol/L (21.0-32.0); CREATININE - SERUM 5.4 mg/dL (0.6-1.3); POTASSIUM - SERUM 5.1 mmol/L (3.5-5.1)
[2017-10-30 08:36] LABS: BASOPHILS 0.1 % (0-2); EOSINOPHILS 0 % (0-7); IMMATURE GRANULOCYTES 1.6 % (0-5); LYMPHOCYTES 4.9 % (15-50); MCH 30.5 pg (26.0-34.0); MCHC 32.4 g/dL (31.0-37.0); MEAN PLATELET VOLUME 10.2 fL (7.4-10.4); MONOCYTES 3.8 % (2-11); NEUTROPHILS 89.6 % (40-80); PLATELET COUNT 82 10x3/uL (130-400); RDW 17.3 % (11.5-14.5); WBC 14.1 10x3/uL (4.8-10.8)
[2017-10-30 08:37] LABS: HEMATOCRIT 14.2 % (42.0-54.0); HEMOGLOBIN 4.6 g/dL (13.5-17.5); RBC 1.51 10x6/uL (4.20-6.10)
[2017-10-30 19:39] LABS: BASOPHILS 0.1 % (0-2); EOSINOPHILS 0 % (0-7); IMMATURE GRANULOCYTES 0.7 % (0-5); LYMPHOCYTES 6.5 % (15-50); MCH 30.5 pg (26.0-34.0); MCHC 34.6 g/dL (31.0-37.0); MEAN PLATELET VOLUME 9.9 fL (7.4-10.4); MONOCYTES 4.4 % (2-11); NEUTROPHILS 88.3 % (40-80); RDW 15.2 % (11.5-14.5)
[2017-10-30 20:00] LABS: HEMATOCRIT 24.6 % (42.0-54.0); HEMOGLOBIN 8.5 g/dL (13.5-17.5); MCV 88.2 fL (80.0-100.0); RBC 2.79 10x6/uL (4.20-6.10); WBC 7.1 10x3/uL (4.8-10.8)
[2017-10-30 20:01] LABS: PLATELET COUNT 46 10x3/uL (130-400)
[2017-10-30 20:04] LABS: INR 1.35 (0.85-1.17); PROTIME 16.2 SECONDS (11.6-15.0)
[2017-10-30 20:05] LABS: D-DIMER-QUANTITATIVE 3.18 ug/mLFEU (0.20-0.54)
[2017-10-31] VITALS (19 sets, daily range): BP systolic 39–146; BP diastolic 21–79
[2017-11-15 12:18] LABS: ACID FAST CULTURE Negative (()); ACID FAST SMEAR Negative (())
[2017-11-15 12:18] LABS: ACID FAST CULTURE Negative (()); ACID FAST SMEAR Negative (())
== END 2017-10-31 09:23 | DRG 3 ==
LOC: D.SDCHOLD 07:23 → D.ICU 07:23 → D.SDCHOLD 10:30 → D.ICU 19:01 → D.MS 09-07 11:41 → D.ICU 09-07 12:10
PROVIDERS: Anesthesiology; Internal Medicine Hematology & Oncology; Internal Medicine Medical Oncology; Internal Medicine Nephrology; Internal Medicine Pulmonary Disease; Radiology Diagnostic Radiology; Specialist; Student in an Organized Health Care Education/Training Program; Surgery
PROC: 02HV33Z Insertion of Infusion Device into Superior Vena Cava, Percutaneous Approach (ICD-10-PCS; 2017-08-19)
PROC: 5A1955Z Respiratory Ventilation, Greater than 96 Consecutive Hours (ICD-10-PCS; 2017-08-19)
PROC: 0DB30ZZ Excision of Lower Esophagus, Open Approach (ICD-10-PCS; principal; 2017-08-19 10:30)
PROC: 0D7 Gastrointestinal System, Dilation (ICD-10-PCS; 2017-08-19 10:30)
PROC: 0DHA4UZ Insertion of Feeding Device into Jejunum, Percutaneous Endoscopic Approach (ICD-10-PCS; 2017-08-19 10:30)
PROC: 5A1D70Z Performance of Urinary Filtration, Intermittent, Less than 6 Hours Per Day (ICD-10-PCS; 2017-08-20)
PROC: 0BD78ZX Extraction of Left Main Bronchus, Via Natural or Artificial Opening Endoscopic, Diagnostic (ICD-10-PCS; 2017-08-25)
PROC: 0BD38ZX Extraction of Right Main Bronchus, Via Natural or Artificial Opening Endoscopic, Diagnostic (ICD-10-PCS; 2017-08-25)
PROC: 0W9B30Z Drainage of Left Pleural Cavity with Drainage Device, Percutaneous Approach (ICD-10-PCS; 2017-08-26)
PROC: 0B968ZZ Drainage of Right Lower Lobe Bronchus, Via Natural or Artificial Opening Endoscopic (ICD-10-PCS; 2017-08-29)
PROC: 0B958ZZ Drainage of Right Middle Lobe Bronchus, Via Natural or Artificial Opening Endoscopic (ICD-10-PCS; 2017-08-29)
PROC: 0WPB30Z Removal of Drainage Device from Left Pleural Cavity, Percutaneous Approach (ICD-10-PCS; 2017-08-30)
PROC: 0W9B30Z Drainage of Left Pleural Cavity with Drainage Device, Percutaneous Approach (ICD-10-PCS; 2017-08-30)
PROC: 0B113F4 Bypass Trachea to Cutaneous with Tracheostomy Device, Percutaneous Approach (ICD-10-PCS; 2017-09-02)
PROC: 0W9900Z Drainage of Right Pleural Cavity with Drainage Device, Open Approach (ICD-10-PCS; 2017-09-03)
PROC: 5A1D70Z Performance of Urinary Filtration, Intermittent, Less than 6 Hours Per Day (ICD-10-PCS; 2017-09-07)
PROC: 0D2DXUZ Change Feeding Device in Lower Intestinal Tract, External Approach (ICD-10-PCS; 2017-09-14)
PROC: 0D2DXUZ Change Feeding Device in Lower Intestinal Tract, External Approach (ICD-10-PCS; 2017-09-21)
PROC: 0W993ZZ Drainage of Right Pleural Cavity, Percutaneous Approach (ICD-10-PCS; 2017-09-23)
PROC: 0HB6XZZ Excision of Back Skin, External Approach (ICD-10-PCS; 2017-09-24)
PROC: 0FT40ZZ Resection of Gallbladder, Open Approach (ICD-10-PCS; 2017-10-01)
PROC: 0DB90ZZ Excision of Duodenum, Open Approach (ICD-10-PCS; 2017-10-01)
PROC: 0D9900Z Drainage of Duodenum with Drainage Device, Open Approach (ICD-10-PCS; 2017-10-01)
PROC: 0W9930Z Drainage of Right Pleural Cavity with Drainage Device, Percutaneous Approach (ICD-10-PCS; 2017-10-15)
PROC: 0DW Gastrointestinal System, Revision (ICD-10-PCS; 2017-10-18)
PROC: BD19ZZZ Fluoroscopy of Duodenum (ICD-10-PCS; 2017-10-25)
DX: C15.5 Malignant neoplasm of lower third of esophagus (principal); J96.21 Acute and chronic respiratory failure with hypoxia; N17.0 Acute kidney failure with tubular necrosis; J18.9 Pneumonia, unspecified organism; A41.9 Sepsis, unspecified organism; R65.21 Severe sepsis with septic shock; G93.41 Metabolic encephalopathy; J86.9 Pyothorax without fistula; K65.9 Peritonitis, unspecified; I50.33 Acute on chronic diastolic (congestive) heart failure; D65 Disseminated intravascular coagulation [defibrination syndrome]; D62 Acute posthemorrhagic anemia; J80 Acute respiratory distress syndrome; E87.2 Acidosis; J98.11 Atelectasis; R17 Unspecified jaundice; G72.81 Critical illness myopathy; K91.89 Other postprocedural complications and disorders of digestive system; E88.09 Other disorders of plasma-protein metabolism, not elsewhere classified; R00.0 Tachycardia, unspecified; Y95 Nosocomial condition; K21.9 Gastro-esophageal reflux disease without esophagitis; Z87.891 Personal history of nicotine dependence; B96.89 Other specified bacterial agents as the cause of diseases classified elsewhere; D69.6 Thrombocytopenia, unspecified; Y83.8 Other surgical procedures as the cause of abnormal reaction of the patient, or of later complication, without mention of misadventure at the time of the procedure; Y82.8 Other medical devices associated with adverse incidents; D73.5 Infarction of spleen; L89.150 Pressure ulcer of sacral region, unstageable